=== PATIENT | female | born 1945 | race Caucasian/White ===

== ENCOUNTER → 2017-03-25 | Outpatient (CLI) | payer OTHER ==
[~2017-03-25] MED LIST: ASPI81TA28 PO; ATEN-173 PO; ATEN50TA8 PO; BUTA1CAP17 PO; CHOL200010 PO; ESTR0.3T PO; LEVO50TA6 PO; QUET1TAB30 PO; SIMV20TA2 PO; SIMV40TA4 PO
--- NOTE | 2017-03-25 11:16 | DIAGNOSTIC IMAGING REPORT ---
GI SERIES W/O KUB CLINICAL HISTORY: Abdominal pain. History of Rupal fundoplication history of perforated ulcer COMPARISON STUDY: 01/21/2016 FLUOROSCOPY TIME: 1.8 minutes. 24 fluoroscopic spot images were acquired. FINDINGS: The patient swallowed barium without difficulty. A deformity at the esophagogastric junction is consistent with history of a prior Rupal fundoplication. There is a small distal esophageal diverticulum. There is no gastric outlet obstruction. The duodenal bulb appears normal. Ligament Treitz is located in the normal anatomic position. There is poor coating of the gastric antrum. This may represent residual food debris within the stomach. This limits the sensitivity for mucosal lesion detection. IMPRESSION: 1. Small distal esophageal diverticulum 2. Postsurgical changes are prior Rupal fundoplication 3. No evidence of gastric outlet obstruction. No duodenal bulb ulcers identified. Electronically signed by: Conor Euceda M.D. 03/25/2017 11:14 AM Dictated Date/Time: 03/25/2017 11:11 AM
== END | disposition home or self-care (01) ==
LOC: C.RAD 10:38
PROVIDERS: ATTEND Surgery
DX: R10.13 Epigastric pain (principal)

== ENCOUNTER → 2017-06-17 | Outpatient (CLI) | payer OTHER ==
[~2017-06-17] MED LIST changes: -ATEN50TA8 PO; -SIMV40TA4 PO
--- NOTE | 2017-06-17 15:43 | MAMMOGRAPHY REPORT ---
BILATERAL DIGITAL SCREENING MAMMOGRAM WITH CAD: 06/17/2017 CLINICAL HISTORY: Routine screening. Patient has no complaints. TECHNIQUE: Bilateral CC and MLO views were obtained. Current study was also evaluated with a Compute r Aided Detection (CAD) system. COMPARISON: Comparison is made to exams dated: 06/11/2016 mammogram, 06/08/2015 mammogram, 06/07/2014 ma mmogram, 05/19/2012 mammogram, 05/02/2011 mammogram, and 05/01/2010 mammogram - [facility]. BREAST COMPOSITION: There are scattered areas of fibroglandular density in both breasts. FINDINGS: There is a 10 mm nodular asymmetry in the upper outer anterior left breast, for which jennifer tional spot compression tomosynthesis views and possibly ultrasound are recommended. There are benign coarse calcifications bilaterally. No other suspicious mass, architectural distortio n or cluster of suspicious microcalcifications is seen. IMPRESSION: ACR BI-RADS CATEGORY 0: INCOMPLETE EVALUATION: NEED ADDITIONAL IMAGING EVALUATION The 10 mm nodular asymmetry in the upper outer anterior left breast needs additional evaluation. The patient will be called to schedule an appointment. Approximately 10% of breast cancers are not detected with mammography. A negative mammographic report should not delay biopsy if a clinically suggestive mass is present. Mansi Puckett M.D. ay/:06/17/2017 15:09:48 Wharf Tender Helper: Yeny FERNANDEZ(R)(M), [facility] letter sent: Addl Imaging 0 BI-RADS Code: ACR BI-RADS Category 0: Incomplete Evaluation: Need Additional Imaging Evaluation
== END | disposition home or self-care (01) ==
LOC: C.MAMM 10:11
PROVIDERS: ATTEND Internal Medicine
DX: Z12.31 Encounter for screening mammogram for malignant neoplasm of breast (principal); N64.89 Other specified disorders of breast

== ENCOUNTER → 2017-07-01 | Outpatient (CLI) | payer OTHER ==
--- NOTE | 2017-07-01 13:43 | MAMMOGRAPHY REPORT ---
UNILATERAL LEFT DIGITAL DIAGNOSTIC MAMMOGRAM TOMOSYNTHESIS AND TARGETED LEFT ULTRASOUND: 07/01/2017 CLINICAL HISTORY: 71-year-old woman called back from screening mammography for a 10 mm nodular asymme try in the upper outer anterior left breast. TECHNIQUE: Spot compression left CC and MLO 2-D and tomosynthesis images were obtained. COMPARISON: Comparison is made to exams dated: 06/17/2017 mammogram, 06/11/2016 mammogram, 06/08/2015 m ammogram, 06/07/2014 mammogram, 06/01/2013 mammogram, and 05/19/2012 mammogram - [facility]. BREAST COMPOSITION: There are scattered areas of fibroglandular density in the left breast. FINDINGS: There is persistence of a lobulated circumscribed oval to reniform mass in the upper outer anterior left breast, measuring 4.2 x 8.9 x 4.6 mm and this is seen on CC tomosynthesis slice 26 and MLO tomosynthesis slice 32. No associated architectural distortion or microcalcification. Incident ally seen on the CC tomosynthesis images is an irregular 4 mm asymmetry in the slightly medial, anter ior left breast (CC slice 33/73), for which additional characterization with ultrasound was also perf ormed in the medial left breast. This is not definitely seen on the spot compression MLO view. No s uspicious microcalcifications are identified. Targeted ultrasound was performed in the left breast with particular attention to the upper outer magnolia drant and medial breast. In the 1:00 axis, 2 cm from the nipple, there is an oval parallel circumscr ibed anechoic benign simple cyst measuring 4.3 x 3.3 x 7.7 mm. This correlates well with the circums cribed mammographic mass in the upper outer anterior breast and is benign. Additional ultrasound performed in the medial left breast demonstrates a rounded hypoechoic solid juan j genny cystic mass in the 10:00 periareolar axis. This measures 4.2 x 3.2 x 4.3 mm and may possibly cor relate with the incidentally identified nodular asymmetry seen on the left CC spot compression view. This is indeterminate and definitive characterization with tissue sampling is recommended. IMPRESSION: ACR BI-RADS CATEGORY 4: SUSPICIOUS, TARGETED ULTRASOUND ACR BI-RADS CATEGORY 4: SUSPICIO US 1. The circumscribed lobulated reniform shaped 8.9 x 4.6 m mass in the upper outer anterior left charbel ast correlates with an anechoic benign simple cyst on ultrasound. No further workup is needed at thi s time. 2. Incidentally seen on the spot compression left CC view is a 4 mm nodular asymmetry in the medial anterior breast with possible sonographic correlate in the 10:00 periareolar axis. Ultrasound guided core needle biopsy is recommended and correlation with postprocedure tomosynthesis images is recomme nd to assess for mammographicsonographic correlation. These results and recommendations were discussed with the patient at the time of the exam. She tenta tively scheduled the left breast biopsy prior to leaving our department. Approximately 10% of breast cancers are not detected with mammography. A negative mammographic report should not delay biopsy if a clinically suggestive mass is present. Mansi Puckett M.D. ay/:07/01/2017 10:10:57 Hotel Maintenance Worker: Barb FERNANDEZ(R)(M), [facility] letter sent: Abnormal 4/5 BI-RADS Code: ACR BI-RADS Category 4: Suspicious Ultrasound BI-RADS: ACR BI-RADS Category 4: Suspici ous
== END | disposition home or self-care (01) ==
LOC: C.MAMM 09:27
PROVIDERS: ATTEND Internal Medicine
DX: N64.9 Disorder of breast, unspecified (principal)

== ENCOUNTER → 2017-07-08 | Outpatient (CLI) | payer OTHER ==
--- NOTE | 2017-07-08 11:34 | Discharge Instructions ---
Discharge Instructions Procedure Procedure Date: Jul 08, 2017. Reason for visit: Lt Mass. Discharge Discharge Date: Jul 08, 2017. Discharge Diagnosis: post left breast ultrasound guided core biopsy Instructions Activity Recommendations: Additional Limitations (see below) Return to School/Work: no limitations Recommended Home Diet: No Limitations Provider Instructions: ACTIVITY RECOMMENDATIONS: * No lifting, pushing, pulling or exercising the affected side for three days. RETURN TO SCHOOL/WORK: * You may return to work/school after the procedure, but do not perform any strenuous activities for 24 to 48 hours. MEDICATIONS: * Tylenol (two 325 mg) every four to six hours if needed for mild pain (if not allergic to Tylenol). DIET: * Resume previous diet. SPECIAL CARE INSTRUCTIONS: * Keep biopsy site dry for 24 hours. May shower after 24 hours, but do not soak (bathe) incision. * May remove Tegaderm (plastic patch) tomorrow AFTER showering. * Leave the steri-strips on for one week. Allow the steri-strips to fall off by themselves. If not off after one week, you may remove them. You may place a Bandaid crosswise over the strips, if desired. * Apply ice 10 minutes on and 10 minutes off as needed. * Wear a bra at bedtime to sleep more comfortably for 2-3 days. * Your referring physician should have the results after approximately 5 to 7 business days. * Call for unusual bleeding, fever, drainage, etc or if you have any questions call [phone] during normal business hours or after hours call Dr Puckett, . FOLLOW UP VISIT: Follow-up with Referring Physician as scheduled. Allergies Coded Allergies: No Known Allergies (Verified , 11/26/16) Kim Woo Recommendations: Call your doctor if: * Temperature above 101 degrees * Pain not relieved by pain medicine ordered * There is increased drainage or redness from any incision * You have any unanswered questions or concerns. Your Doctors Instructions noted above were prepared by provider Mansi Puckett. Patient Signature Section: Patient Instructions Signature Page Carmela Burt Patient (or Guardian) Signature/Date: I have read and understand the instructions given to me by my caregivers. Caregiver/RN/Doctor Signature/Date: The above-named patient and/or guardian has received patient instructions on this date. + Original Patient Signature Page (only) stays with chart. Please make copy for patient.
--- NOTE | 2017-07-08 12:24 | MAMMOGRAPHY REPORT ---
THIS REPORT HAS BEEN AMENDED. ULTRASOUND GUIDED BIOPSY LEFT BREAST: 07/08/2017 CLINICAL HISTORY: Round hypoechoic solid versus cystic mass in the 10:00 periareolar left breast. Jv carbajal presents for ultrasound-guided core biopsy. COMPARISON: Comparison is made to exams dated: 07/01/2017 ultrasound, 07/01/2017 mammogram, 06/17/2017 ma mmogram, 06/11/2016 mammogram, 06/08/2015 mammogram, and 06/07/2014 mammogram - [facility]. PATIENT CONSENT: The procedure, risks and benefits were discussed with the patient and informed conse nt was obtained both verbally and in writing. Specific risks to this procedure include: bleeding, in fection, puncture of adjacent structure, nontarget biopsy, sampling error, pain, metal allergy and me dication reaction. PROCEDURE DESCRIPTION: A time out was performed and the left breast was agreed as the site of biopsy. The skin was prepped and draped in the usual sterile fashion. The solid appearing round hypoechoic c ircumscribed 4 mm mass in the 10:00 left breast was chosen as the target for biopsy. Subcutaneous and intraparenchymal 1% buffered lidocaine, with and without epinephrine, was administered as local anes thesia. A skin incision was made. Through the incision, 2 samples were taken with a 14 gauge Achieve biopsy device. After the second core biopsy sample the mass completely resolved, suggesting complet e sampling or cystic nature. Therefore, a ribbon shaped metallic marker was placed at the biopsy sit e. Hemostasis was achieved after manual compression. The patient tolerated the procedure well and the re was no immediate complication. The samples were sent to the pathology department in an appropriat harini labeled container. Post procedure left CC and ML 2-D and tomosynthesis images were obtained. A new ribbon-shaped metall ic biopsy marker is identified in the retroareolar left breast, at the site of the biopsied round hyp oechoic mass seen on ultrasound. Evaluation of the post procedure CC view demonstrates that the biop sy marker clip is slightly lateral by approximately 17 mm from the expected location of the nodular a symmetry seen on the spot compression view from 07/01/2017. This nodular asymmetry with possible ass ociated distortion is less conspicuous and currently, no definite architectural distortion is seen in the medial anterior left breast. The benign reniform shaped cyst is again seen in the lateral anter ior left breast. Pending benign pathology results, follow-up left diagnostic mammograms including to mosynthesis images and possible repeat ultrasound is recommended to ensure stability in 6 months. IMPRESSION: ULTRASOUND GUIDED BIOPSY Status post ultrasound-guided core biopsy of an indeterminate hypoechoic solid versus cystic mass in the 10:00 periareolar left breast, with biopsy marker placed at the site. Although the biopsy marker clip does not align with the previously described asymmetry, the small asy mmetry with possible associated distortion in the medial anterior left breast seen on the prior spot compression left CC view is no longer seen, suggesting it could have represented overlapping tissue a nd is benign. Nevertheless, pending benign pathology results, follow-up left diagnostic mammograms i ncluding tomosynthesis images and possible repeat ultrasound is recommended in 6 months. The patient will receive notification of the biopsy results from her referring physician. Mansi Puckett M.D. ay/:07/08/2017 12:18:05 It Infrastructure Consultant: Cece ROMO)(Kaitlin), [facility] AMENDMENT: 07/29/2017 Mansi Puckett M.D. Pathology results from the ultrasound guided core biopsy of a small hypoechoic mass in the 10:00 left breast yielded fibrocystic change. Negative for DCIS and invasive carcinoma. The pathology results are concordant with the imaging appearance. Given that the biopsy marker clip was located slightly lateral to the asymmetry identified on the spot compression tomosynthesis views, but that asymmetry w as no longer as prominent on the postprocedure images, a short interval follow-up left diagnostic eddie mogram and possible repeat ultrasound is recommended to ensure stability in 6 months.
--- NOTE | 2017-07-08 12:24 | MAMMOGRAPHY REPORT ---
UNILATERAL LEFT DIGITAL DIAGNOSTIC MAMMOGRAM TOMOSYNTHESIS: 07/08/2017 CLINICAL HISTORY: Status post ultrasound guided core biopsy of an indeterminate hypoechoic solid vers us cystic mass in the 10:00 periareolar left breast. Please refer to the report from left breast ultrasound guided core biopsy performed at the same time for full detail. IMPRESSION: POST PROCEDURE IMAGING FOR MARKER PLACEMENT Please refer to the report from left breast ultrasound guided core biopsy performed at the same time for full detail. Approximately 10% of breast cancers are not detected with mammography. A negative mammographic report should not delay biopsy if a clinically suggestive mass is present. Mansi Puckett M.D. ay/:07/08/2017 11:33:37 Service Clerk: Cece FERNANDEZ(Maria Guadalupe)(M), [facility] BI-RADS Code: Post Procedure Imaging For Marker Placement
== END | disposition home or self-care (01) ==
LOC: C.MAMM 10:06
PROVIDERS: ATTEND Internal Medicine
DX: N63 Unspecified lump in breast (principal); N60.12 Diffuse cystic mastopathy of left breast

== ENCOUNTER 2017-11-18 13:25 | Inpatient (IN) | payer OTHER ==
[~2017-11-18] VITALS: Ht 157.5 cm; Wt 82.1 kg
[~2017-11-18 13:25] MED LIST changes: -ASPI81TA28 PO; -ATEN-173 PO; -QUET1TAB30 PO; -SIMV20TA2 PO
--- NOTE | 2017-11-18 13:50 | EMERGENCY ROOM VISIT NOTE ---
History Report prepared by Idris: Jace Savage Under the Supervision of: Dr. Shabbir Dc D.O. First contact with patient: 13:26 Stated Complaint: EVALUATION History of Present Illness The patient is a 72 year old female who presents to the Emergency Room with complaints of constant shortness of breath that began just prior to arrival. The patient states that she was having a colonoscopy today and in post-op she had an episode of vomiting. She reports that there is concern for aspiration and she notes that the last time she ate was 2 days ago. She denies chest pain, and abdominal pain. 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 The patient reports she has a history of a hernia (2014). The patient had an O2 saturation of 85% prior to arrival. The patient denies any known drug allergies or smoking history. 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 A total of 10 systems reviewed and were otherwise negative. Past Medical & Surgical Medical Problems: (1) Acid reflux (2) Cholelithiasis Family History No pertinent family history stated. Social History Smoking Status: Never Smoker Marital Status: Housing Status: lives with significant other Occupation Status: employed Current/Historical Medications Scheduled Aspirin (Aspirin Ec), 81 MG PO QAM Atenolol (Tenormin), 50 MG PO DAILY Cholecalciferol (Vitamin D), 4,000 INTUNIT PO QAM Estrogens, Conjugated (Premarin), 0.3 MG PO 2 X WEEK Omeprazole (Prilosec), 20 MG PO DAILY Quetiapine Fumarate (Seroquel), 25 MG PO HS Simvastatin (Zocor), 40 MG PO QPM Thyroid (Lolita Thyroid), 60 MG PO Q2D Scheduled PRN Albuterol Hfa (Ventolin Hfa), 2 PUFFS INH Q6H PRN for SOB/Wheezing Ujozebtvwi-Dkaxckehrjjff-Irzys (Fioricet), 1 CAP PO DAILY PRN for Migraine Allergies Coded Allergies: No Known Allergies (Verified , 11/26/16) Physical Exam Vital Signs Date Time Temp Pulse Resp B/P (MAP) Pulse Ox O2 Delivery O2 Flow Rate FiO2 11/18/17 14:59 107 18 150/59 96 Nasal Cannula 3.0 11/18/17 14:27 96 11/18/17 13:48 97 Nasal Cannula 3.0 11/18/17 13:30 88 Room Air 11/18/17 13:25 36.4 85 18 138/55 97 Nasal Cannula 3.0 11/18/17 13:25 97 Nasal Cannula 3.0 11/18/17 13:25 97 Nasal Cannula Physical Exam GENERAL: Patient is awake, alert, non anxious appearing, comfortable, and in no acute distress. Patient is resting comfortably and showing no signs of anxiety EYES: The conjunctivae are clear. The pupils are round and reactive. EARS, NOSE, MOUTH AND THROAT: The nose is without any evidence of any deformity. Mucous membranes are moist tongue is midline NECK: The neck is nontender and supple. RESPIRATORY: Diminished at right base; scattered rhonchi in left lung field. No tachypnea or conversational dyspnea noted. CARDIOVASCULAR: Regular rate and rhythm noted there no murmurs rubs or gallops normal S1 normal S2 GASTROINTESTINAL: The abdomen is soft. Bowel sounds are present in all quadrants. Abdomen is nontender MUSCULOSKELETAL/EXTREMITIES: There is no evidence of gross deformity full range of motion is noted in the hips and shoulders SKIN: There is no obvious evidence of any rash. There are no petechiae, pallor or cyanosis noted. NEUROLOGIC: Patient is awake alert and oriented x3 strength Medical Decision & Procedures ER Provider Diagnostic Interpretation: X-ray results as stated below per interpretation by me and the radiologist. CHEST ONE VIEW PORTABLE FINDINGS: Lung volumes are normal. There is no pneumothorax or pleural effusion. There is mild cardiomegaly without evidence of pulmonary edema. Left mid and left basilar airspace opacity is present. There may be mild right infrahilar opacity. Left hilar prominence is noted. IMPRESSION: 1. Left midlung and left basilar airspace opacity suggestive of pneumonia. Radiographic follow-up to ensure resolution is recommended. Left hilar prominence which can be assessed on follow-up chest radiographs. 2. Possible right infrahilar opacity. This likely reflects normal structures however additional site of pneumonia could appear similar. Electronically signed by: Tommy Puckett M.D. 11/18/2017 2:43 PM Dictated Date/Time: 11/18/2017 2:41 PM Laboratory Results 11/18/17 14:12 Red Blood Count 4.52, Mean Corpuscular Volume 93.6, Mean Corpuscular Hemoglobin 32.1, Mean Corpuscular Hemoglobin Concent 34.3, Mean Platelet Volume 10.0, Neutrophils (%) (Auto) 92.2, Lymphocytes (%) (Auto) 4.2, Monocytes (%) (Auto) 3.0, Eosinophils (%) (Auto) 0.1, Basophils (%) (Auto) 0.2, Neutrophils # (Auto) 13.09, Lymphocytes # (Auto) 0.60, Monocytes # (Auto) 0.43, Eosinophils # (Auto) 0.02, Basophils # (Auto) 0.03 11/18/17 14:12 Test 11/18/17 14:12 11/18/17 14:13 White Blood Count 14.21 K/uL (4.8-10.8) Red Blood Count 4.52 M/uL (4.2-5.4) Hemoglobin 14.5 g/dL (12.0-16.0) Hematocrit 42.3 % (37-47) Mean Corpuscular Volume 93.6 fL (80-100) Mean Corpuscular Hemoglobin 32.1 pg (25-34) Mean Corpuscular Hemoglobin Concent 34.3 g/dl (32-36) Platelet Count 216 K/uL (130-400) Mean Platelet Volume 10.0 fL (7.4-10.4) Neutrophils (%) (Auto) 92.2 % Lymphocytes (%) (Auto) 4.2 % Monocytes (%) (Auto) 3.0 % Eosinophils (%) (Auto) 0.1 % Basophils (%) (Auto) 0.2 % Neutrophils # (Auto) 13.09 K/uL (1.4-6.5) Lymphocytes # (Auto) 0.60 K/uL (1.2-3.4) Monocytes # (Auto) 0.43 K/uL (0.11-0.59) Eosinophils # (Auto) 0.02 K/uL (0-0.5) Basophils # (Auto) 0.03 K/uL (0-0.2) RDW Standard Deviation 46.6 fL (36.4-46.3) RDW Coefficient of Variation 13.6 % (11.5-14.5) Immature Granulocyte % (Auto) 0.3 % Immature Granulocyte # (Auto) 0.04 K/uL (0.00-0.02) Prothrombin Time 10.4 SECONDS (9.0-12.0) Prothromb Time International Ratio 1.0 (0.9-1.1) Activated Partial Thromboplast Time 25.2 SECONDS (21.0-31.0) Partial Thromboplastin Ratio 1.0 Anion Gap 6.0 mmol/L (3-11) Est Creatinine Clear Calc Drug Dose 63.8 ml/min Estimated GFR () 87.4 Estimated GFR (Non- 75.4 BUN/Creatinine Ratio 9.4 (10-20) Calcium Level 8.7 mg/dl (8.5-10.1) Total Bilirubin 0.4 mg/dl (0.2-1) Aspartate Amino Transf (AST/SGOT) 23 U/L (15-37) Alanine Aminotransferase (ALT/SGPT) 30 U/L (12-78) Alkaline Phosphatase 86 U/L (45-117) Troponin I 0.022 ng/ml (0-0.045) Total Protein 7.3 gm/dl (6.4-8.2) Albumin 3.8 gm/dl (3.4-5.0) Globulin 3.5 gm/dl (2.5-4.0) Albumin/Globulin Ratio 1.1 (0.9-2) Urine Color YELLOW Urine Appearance CLEAR (CLEAR) Urine pH 5.0 (4.5-7.5) Urine Specific [place] 1.021 (1.000-1.030) Urine Protein NEG (NEG) Urine Glucose (UA) NEG (NEG) Urine Ketones NEG (NEG) Urine Occult Blood NEG (NEG) Urine Nitrite NEG (NEG) Urine Bilirubin NEG (NEG) Urine Urobilinogen NEG (NEG) Urine Leukocyte Esterase SMALL (NEG) Urine WBC (Auto) 1-5 /hpf (0-5) Urine RBC (Auto) 0-4 /hpf (0-4) Urine Hyaline Casts (Auto) 0 /lpf (0-5) Urine Epithelial Cells (Auto) 5-10 /lpf (0-5) Urine Bacteria (Auto) NEG (NEG) Laboratory results per my review. Medications Administered Medications (Trade) Dose Ordered Sig/Priyanka Route Start Time Stop Time Status Last Admin Dose Admin Albuterol/ Ipratropium (Duoneb) 3 ml NOW STAT INH 11/18/17 13:58 11/18/17 13:59 DC 11/18/17 14:23 3 ML ECG Indication: SOB/dyspnea Rate (beats per minute): 90 Rhythm: normal sinus Findings: no ectopy, other (no acute ST segment abnormality) Comparison ECG Date: 09/12/1999 Change: no significant change ED Course 1329: The patient was evaluated in room B11. A complete history and physical examination were performed. 1358: Duoneb 3ml INH. 1450: I discussed the patient's case with Dr. Steiner. The patient will be evaluated for further management. 1513: Upon reevaluation, the patient is doing well. I discussed results and treatment plan with the patient. She verbalizes agreement and understanding. I spoke with Dr. Steiner. The patient will be evaluated for further management and care. Medical Decision Differential diagnosis: Etiologies such as infections, reactive airway disease, pneumonia, pneumothorax , COPD, CHF, cardiac ischemia, pulmonary embolism, musculoskeletal, gastrointestinal, as well as others were entertained. Nursing notes reviewed. The patient is a 72-year-old female who presented to the emergency department from the outpatient surgery center. The patient had a colonoscopy and afterwards became sick and had an episode of emesis. She had the possibility of aspiration. Initially she was found have hypoxia but her oxygen level improved with DuoNeb therapy and supplemental ox and. She continued to have hypoxia and was sent to the emergency department for an evaluation. Reportedly the patient had a chest x-ray prior to arrival which was normal. The patient started having worsening breath sounds and changes on chest x-ray which could be consistent with aspiration and pneumonitis. I discussed the patient's laboratory and radiographic studies with her. She was treated with DuoNeb therapy in emergency department. I also discussed her case with the on-call [facility] hospitalist group. They have agreed to evaluate the patient in the emergency department for further management and disposition. Medication Reconcilliation Current Medication List: was personally reviewed by me Blood Pressure Screening Patient's blood pressure: Elevated blood pressure Blood pressure disposition: Elevated BP felt to be situational Consults Time Called: [id number] Consulting Physician: Dr. Papito Allen Returned Call: [phone] I discussed the patient's case with Dr. Steiner. The patient will be evaluated for further management. Impression Primary Impression: Aspiration pneumonia Additional Impression: Hypoxia Scribe Attestation The scribe's documentation has been prepared under my direction and personally reviewed by me in its entirety. I confirm that the note above accurately reflects all work, treatment, procedures, and medical decision making performed by me. Departure Information Dispostion Being Evaluated By Hospitalist Prescriptions Thyroid (ARMOUR THYROID) 30 Mg Tab 60 MG PO Q2D for 30 Days, TAB 5 Refills Prov: Dominic Bowden MD 11/18/17 Omeprazole (PRILOSEC) 20 Mg Capcr 20 MG PO DAILY, #30 CAP Prov: Dominic Bowden MD 11/18/17 Albuterol Hfa (VENTOLIN HFA) 200 Puffs/35641 Mcg Aers 2 PUFFS INH Q6H Y for SOB/Wheezing, #1 INHALER Prov: Dominic Bowden MD 11/18/17 Referrals Alonso Barth D.OGissell (PCP) Problem Qualifiers Primary Impression: Aspiration pneumonia Aspiration pneumonia type: unspecified Laterality: bilateral Lung location : unspecified part of lung Qualified Codes: J69.0 - Pneumonitis due to inhalation of food and vomit
[2017-11-18] MEDS ORDERED: ALBUT/IPRATROP 3MG/0.5MG NEB 3 ML VIAL INH STA (13:58)
[2017-11-18 14:25] LABS: BASO % 0.2 %; BASO ABS # 0.03 K/uL (0-0.2); EOS % 0.1 %; EOS ABS # 0.02 K/uL (0-0.5); HEMATOCRIT 42.3 % (37-47); HEMOGLOBIN 14.5 g/dL (12.0-16.0); IG# 0.04 K/uL (0.00-0.02); LYMPH % 4.2 %; MEAN CELL VOLUME 93.6 fL (80-100); MEAN CORPUSCULAR HEMOGLOBIN 32.1 pg (25-34); MEAN CORPUSCULAR HGB CONC 34.3 g/dl (32-36); MONO ABS # 0.43 K/uL (0.11-0.59); NEUT % 92.2 %; NEUT ABS # 13.09 K/uL (1.4-6.5); PLATELET COUNT 216 K/uL (130-400); RED CELL DISTRIBUTION WIDTH CV 13.6 % (11.5-14.5); RED CELL DISTRIBUTION WIDTH SD 46.6 fL (36.4-46.3); WHITE BLOOD COUNT 14.21 K/uL (4.8-10.8)
[2017-11-18 14:37] LABS: PTT PATIENT 25.2 SECONDS (21.0-31.0)
[2017-11-18 14:42] LABS: ALBUMIN 3.8 gm/dl (3.4-5.0); CALCIUM 8.7 mg/dl (8.5-10.1); CREATININE 0.78 mg/dl (0.60-1.20); POTASSIUM 3.6 mmol/L (3.5-5.1)
--- NOTE | 2017-11-18 14:45 | DIAGNOSTIC IMAGING REPORT ---
CHEST ONE VIEW PORTABLE CLINICAL HISTORY: Dyspnea. Respiratory distress. COMPARISON STUDY: No previous studies for comparison. FINDINGS: Lung volumes are normal. There is no pneumothorax or pleural effusion. There is mild cardiomegaly without evidence of pulmonary edema. Left mid and left basilar airspace opacity is present. There may be mild right infrahilar opacity. Left hilar prominence is noted. IMPRESSION: 1. Left midlung and left basilar airspace opacity suggestive of pneumonia. Radiographic follow-up to ensure resolution is recommended. Left hilar prominence which can be assessed on follow-up chest radiographs. 2. Possible right infrahilar opacity. This likely reflects normal structures however additional site of pneumonia could appear similar. Electronically signed by: Tommy Puckett M.D. 11/18/2017 2:43 PM Dictated Date/Time: 11/18/2017 2:41 PM
[2017-11-18 14:47] LABS: TOTAL PROTEIN 7.3 gm/dl (6.4-8.2)
[2017-11-18] MEDS ORDERED: THY/30 PO ×2 (15:27→15:35)
[2017-11-18] MEDS ORDERED: PRLSR20 PO (15:27)
[2017-11-18] MEDS ORDERED: VNTHFA/IN INH (15:27)
[2017-11-18] MEDS ORDERED: ACETAMINOPHEN 325 MG TAB PO PRN (15:30)
[2017-11-18] MEDS ORDERED: ALBUTEROL HFA 8 GM INHALER INH PRN (15:30)
[2017-11-18] MEDS ORDERED: ONDANSETRON INJ 2 MG/ML 2 ML VIAL IV PRN (15:30)
[2017-11-18] MEDS ORDERED: ALUMINUM/MAGNESIUM/SIMETH (MAALOX MAX) 30 ML UDC PO PRN (15:30)
[2017-11-18] MEDS ORDERED: BUTALBITAL/ACETAMIN/CAFFEINE TAB PO PRN (15:30)
[2017-11-18] MEDS ORDERED: LEVALBUTEROL 0.63MG/3 ML NEB INH PRN (15:30)
[2017-11-18] MEDS ORDERED: ACETAMINOPHEN 500 MG TAB PO STA (15:38)
[2017-11-18 16:03] VITALS: BP 143/83; PULSE 94; TEMP 36; O2SAT 100; Ht 157.5 cm; Wt 82.1 kg
--- NOTE | 2017-11-18 16:13 | HISTORY & PHYSICAL EXAMINATION ---
DATE OF ADMISSION: 11/18/2017 CHIEF COMPLAINT: Hypoxia and aspiration. 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 After the procedure was done, she had emesis and vomited and she aspirated and she was hypoxic and brought into the ER. In the ER, her oxygen was 85% on arrival. Currently, saturating fine with the nasal cannula , feeling better now. Denies any chest pain or shortness of breath. No cough. Earlier was feeling chills but no chills now. Has chronic headaches. No blurred vision. No abdominal pain. Normal bowel and bladder movements. No rash, no swelling in the lower extremity. The patient is currently feeling hungry and wants to eat. Currently, hemodynamically stable. ALLERGIES: No known drug allergies. PAST MEDICAL HISTORY: As mentioned above. PAST SURGICAL HISTORY: EGD with transendoscopic dilatation for oesophagus webs, paraesophageal hernia repair, status post fundoplication, total abdominal hysterectomy with removal of tubes for cervical cancer. MEDICATIONS: The patient is on albuterol 2 puffs every 6 hours p.r.n., omeprazole 20 mg p.o. daily, atenolol 50 mg p.o. daily, Witherbee thyroid 60 mg every other day, Fioricet 1 capsule p.o. daily p.r.n., simvastatin 40 mg p.o. daily, Premarin 0.3 mg 1 tablet 2 times a week, Seroquel 25 mg p.o. at bedtime, vitamin D 4000 units p.o. daily, and aspirin 81 mg p.o. daily. FAMILY HISTORY: Significant for father had leukemia; mother had bladder and ovarian cancer, hypertension and thyroid disorder; brother had stroke. SOCIAL HISTORY: . No smoking history. No alcohol use. No drug use. REVIEW OF SYMPTOMS: As per HPI. Rest of review of symptoms negative. PHYSICAL EXAMINATION: GENERAL: The patient is of moderate build, not in distress. VITAL SIGNS: Temperature 36.4, pulse 96, respiratory rate 18, blood pressure 150/59, oxygen 96% on 3 liters. HEENT: No pallor, no icterus. Pupils equal, round, and reactive to light. NECK: No JVD, no neck masses, no carotid bruits. CARDIOVASCULAR: S1, S2 heard, regular rate and rhythm, no murmur, no gallop. RESPIRATORY SYSTEM: Normal AP diameter, no accessory muscle use. Mild wheezing and crackles on auscultation on anterior part of the chest. ABDOMEN: Soft, bowel sounds present. Nontender. No distention. CENTRAL NERVOUS SYSTEM: Cranial nerves II-XII grossly intact. Nonfocal. EXTREMITIES: No edema, no erythema. LABORATORIES: Sodium 139, potassium 3.6, chloride 106, bicarbonate 27, BUN 7, creatinine 0.7, serum glucose 137, calcium 8.7. Total bilirubin 0.4, AST 23, ALT 30, alkaline phosphatase 86. Troponin I 0.02. WBC 14.2, hemoglobin 14.5, hematocrit 42.3, platelets 216. PT 10.4, INR 1.0 APTT 25.2. Urinalysis - small leukocyte esterase. IMAGING DATA: Chest x-ray shows left mid lung and left basilar opacities suggestive of pneumonia. Possible right infrahilar opacity. EKG shows normal sinus rhythm with rate of 90, no acute ST changes seen. ASSESSMENT AND PLAN: This is a 72-year-old female who presents with aspiration pneumonitis. 1. Aspiration pneumonitis, hypoxia ,secondary to emesis post-colonoscopy, history of paraesophageal hernia repair, and history of dilatation of the oesophageal rings.Has some mild wheezing and crackles on anterior side of chest. Saturating 85% on room air on arrival to the Emergency Room Currently saturating fine on [address] her empirically on IV Unasyn, IV steroids and monitor on the medical floor. 2. History of chronic migraines. Continue her home Seroquel and Fioricet p.r.n. 3. History of gastroesophageal reflux disease. Continue Prilosec. 4. History of hypertension. Continue atenolol. Will monitor her blood pressure while in the hospital. 5. History of hypothyroidism. Continue armor thyroid her home medications. 6. Deep venous thrombosis prophylaxis, sequential compression devices for now. 7. Disposition: Admit to medical floor. Expect to discharge home and follow with her family doctor. Level 1 full code. MTDD
--- NOTE | 2017-11-18 16:43 | NUR ---
Patient arrived via litter from ER to room 420 at approximately 1615; A&O; pleasant; no c/o pain; O2 sats at 100% on 3L; titrated to 2L NC; ambulates with supervision to bathroom; at bedside; all admission nursing documentation completed; call lutz within reach and pt instructed to ring for assistance.
[2017-11-18] MEDS: METHYLPREDNISOLONE IV 40 MG in SYRINGE 0 ML IV SCH (18:08)
[2017-11-18] MEDS: AMPICILLIN/SULBACTAM SOD INJ 1,500 MG in SODIUM CHLORIDE 0.9% 100ML 100 ML IV SCH ×2 (18:09→23:50)
[2017-11-18] MEDS ORDERED: METOPROLOL TARTRATE 25 MG TAB PO ONE (19:15)
[2017-11-18] MEDS ORDERED: QUETIAPINE FUMARATE 25 MG TAB PO SCH (21:00)
[2017-11-18] MEDS ORDERED: SIMVASTATIN 40 MG TAB PO SCH (21:00)
[2017-11-18 23:32] VITALS: BP 122/73; PULSE 74; TEMP 37.1; O2SAT 94
--- NOTE | 2017-11-19 | NUR ---
A/ID: pt alert and oriented X4, resting in bed at this time. VSS on 2L via NC. denies chest pain and SOB. lung sounds diminished in the bases. pt OOB with supervision assist to bathroom. pt receiving intermittent abx for potential aspiration pneumonia. pt plans to return home upon discharge. will continue to monitor.
[2017-11-19] MEDS: AMPICILLIN/SULBACTAM SOD INJ 1,500 MG in SODIUM CHLORIDE 0.9% 100ML 100 ML IV SCH ×2 (05:47→11:53)
[2017-11-19] MEDS: METHYLPREDNISOLONE IV 40 MG in SYRINGE 0 ML IV SCH (05:47)
[2017-11-19 06:23] LABS: BASO % 0.1 %; BASO ABS # 0.02 K/uL (0-0.2); HEMATOCRIT 39.1 % (37-47); HEMOGLOBIN 13.2 g/dL (12.0-16.0); IG# 0.07 K/uL (0.00-0.02); LYMPH % 6.5 %; LYMPH ABS # 1.36 K/uL (1.2-3.4); MEAN CELL VOLUME 94.4 fL (80-100); MEAN CORPUSCULAR HEMOGLOBIN 31.9 pg (25-34); MEAN CORPUSCULAR HGB CONC 33.8 g/dl (32-36); MEAN PLATELET VOLUME 10.3 fL (7.4-10.4); MONO % 3.5 %; MONO ABS # 0.73 K/uL (0.11-0.59); NEUT % 89.6 %; NEUT ABS # 18.71 K/uL (1.4-6.5); PLATELET COUNT 240 K/uL (130-400); RED CELL DISTRIBUTION WIDTH CV 13.9 % (11.5-14.5); RED CELL DISTRIBUTION WIDTH SD 47.7 fL (36.4-46.3); WHITE BLOOD COUNT 20.89 K/uL (4.8-10.8)
[2017-11-19 07:08] LABS: CALCIUM 8.5 mg/dl (8.5-10.1); CREATININE 0.71 mg/dl (0.60-1.20); POTASSIUM 3.5 mmol/L (3.5-5.1)
[2017-11-19 07:09] VITALS: BP 108/65; PULSE 64; TEMP 36.7; O2SAT 96
--- NOTE | 2017-11-19 07:17 | DIAGNOSTIC IMAGING REPORT ---
CHEST ONE VIEW PORTABLE HISTORY: 72 years-old Female ASPIRATION follow-up study in a patient with aspiration pneumonitis and respiratory distress COMPARISON: Chest radiograph 11/18/2017 TECHNIQUE: Portable AP view of the chest FINDINGS: Cardiac silhouette is upper limits of normal, unchanged. No pneumothorax. The right lung is generally clear with previously described right infrahilar opacity not definitively seen. Persistent left midlung and left basilar alveolar opacities are noted which appear unchanged from comparison. No large pleural effusion. Bones of the chest appear grossly intact. Prior cholecystectomy. IMPRESSION: Unchanged appearance of the left midlung and left basilar alveolar opacities suggesting pneumonia or aspiration pneumonitis. The above report was generated using voice recognition software. It may contain grammatical, syntax or spelling errors. Electronically signed by: Shakir Fernandez M.D. 11/19/2017 7:15 AM Dictated Date/Time: 11/19/2017 7:14 AM
[2017-11-19] MEDS ORDERED: ASPIRIN 81 MG ECTAB PO SCH (08:00)
[2017-11-19] MEDS ORDERED: ARMOUR THYROID 30 MG TAB PO SCH ×2 (08:00→09:00)
[2017-11-19] MEDS ORDERED: CHOLECALCIFEROL 1000 INTER.UNIT TAB PO SCH (08:00)
[2017-11-19] MEDS ORDERED: PANTOprazole SOD 40 MG TAB PO SCH (08:00)
[2017-11-19 09:00] VITALS: O2SAT 96
[2017-11-19 09:07] VITALS: O2SAT 95
[2017-11-19 10:00] VITALS: O2SAT 94
[2017-11-19] MEDS ORDERED: AMOX875T PO (11:12)
[2017-11-19] MEDS ORDERED: LCTX PO (11:12)
--- NOTE | 2017-11-19 11:13 | Discharge Instructions ---
Discharge Instructions Date of Service Nov 19, 2017. Admission Reason for Admission: Aspiration Pneumonia, Hypoxia Discharge Discharge Diagnosis / Problem: aspiration pneumionia, hypoxia Discharge Goals Goal(s): Decrease discomfort, Improve function Activity Recommendations Activity Limitations: resume your previous activity . Instructions / Follow-Up Instructions / Follow-Up FOLLOWUP WITH FAMILY DOCTOR ON Oct AT 8:45AM. Current Hospital Diet Patient's current hospital diet: Low Fiber Diet Discharge Diet Recommended Diet: AHA Diet (Heart Healthy) Pending Studies Studies pending at discharge: no Medical Emergencies . Who to Call and When: Medical Emergencies: If at any time you feel your situation is an emergency, please call 911 immediately. . Non-Emergent Contact Non-Emergency issues call your: Primary Care Provider . . "Provider Documentation" section prepared by Dominic Bowden. . VTE Core Measure Inpt VTE Proph given/why not?: SCD's
[2017-11-19 11:27] VITALS: BP 108/65; PULSE 64; TEMP 36.7; O2SAT 94
[2017-11-19 11:43] VITALS: BP 132/69; PULSE 66; O2SAT 92
--- NOTE | 2017-11-19 17:09 | Progress Note ---
Internal Med Progress Note Date of Service: Nov 19, 2017. Provider Documentation: SUBJECTIVE: resting comfortably afebrile saturating fine with out oxygen denies cough denies sob no chest pain wants to go home OBJECTIVE: Vital Signs-as noted below Exam: General-alert and oriented. not in distress ENT-Normal hearing Neck-no neck masses Lungs-Cta b/l no wheezing or crackles Heart-S1 and S2 heard regular No murmurs Abdomen-Soft Bowel sounds present Non tender No distension Extremities-No edema No erythema Neuro-alert and awake moves extremities Lab data as noted below. ASSESSMENT & PLAN: This is a 72-year-old female who presents with aspiration pneumonitis. 1. Aspiration pneumonitis, hypoxia ,secondary to emesis post-colonoscopy, history of paraesophageal hernia repair, and history of dilatation of the oesophageal rings.Has some mild wheezing and crackles on anterior side of chest on presentation. Saturating 85% on room air on arrival to the Emergency Room placed empirically on IV Unasyn, IV steroids and monitor on the medical floor. 11/19/17: doing fine. sats fine on room air discharged on po Augmentin. f/u with pcp. 2. History of chronic migraines. Continue her home Seroquel and Fioricet p.r.n. 3. History of gastroesophageal reflux disease. Continue Prilosec. 4. History of hypertension. Continue atenolol. Will monitor her blood pressure while in the hospital.Stable 5. History of hypothyroidism. Continue armor thyroid her home medications. discharged home Vital Signs: Date Time Temp Pulse Resp B/P (MAP) Pulse Ox O2 Delivery O2 Flow Rate FiO2 11/19/17 11:43 66 92 11/19/17 11:27 36.7 64 20 94 Room Air 11/19/17 10:00 94 Room Air 11/19/17 09:07 95 Nasal Cannula 1.0 11/19/17 09:00 96 Nasal Cannula 2.0 11/19/17 07:09 36.7 64 20 108/65 (79) 96 Nasal Cannula 2.0 11/19/17 00:00 Nasal Cannula 2.0 11/18/17 23:32 37.1 74 18 122/73 (89) 94 Nasal Cannula 2.0 11/18/17 20:00 Nasal Cannula 2.0 Lab Results: Results Past 24 Hours Test 12/21/17 06:00 Range/Units White Blood Count 20.89 4.8-10.8 K/uL Red Blood Count 4.14 4.2-5.4 M/uL Hemoglobin 13.2 12.0-16.0 g/dL Hematocrit 39.1 37-47 % Mean Corpuscular Volume 94.4 80-100 fL Mean Corpuscular Hemoglobin 31.9 25-34 pg Mean Corpuscular Hemoglobin Concent 33.8 32-36 g/dl Platelet Count 240 130-400 K/uL Mean Platelet Volume 10.3 7.4-10.4 fL Neutrophils (%) (Auto) 89.6 % Lymphocytes (%) (Auto) 6.5 % Monocytes (%) (Auto) 3.5 % Eosinophils (%) (Auto) 0.0 % Basophils (%) (Auto) 0.1 % Neutrophils # (Auto) 18.71 1.4-6.5 K/uL Lymphocytes # (Auto) 1.36 1.2-3.4 K/uL Monocytes # (Auto) 0.73 0.11-0.59 K/uL Eosinophils # (Auto) 0.00 0-0.5 K/uL Basophils # (Auto) 0.02 0-0.2 K/uL RDW Standard Deviation 47.7 36.4-46.3 fL RDW Coefficient of Variation 13.9 11.5-14.5 % Immature Granulocyte % (Auto) 0.3 % Immature Granulocyte # (Auto) 0.07 0.00-0.02 K/uL Sodium Level 138 136-145 mmol/L Potassium Level 3.5 3.5-5.1 mmol/L Chloride Level 106 98-107 mmol/L Carbon Dioxide Level 28 21-32 mmol/L Anion Gap 4.0 3-11 mmol/L Blood Urea Nitrogen 10 7-18 mg/dl Creatinine 0.71 0.60-1.20 mg/dl Est Creatinine Clear Calc Drug Dose 70.1 ml/min Estimated GFR () 97.9 Estimated GFR (Non- 84.5 BUN/Creatinine Ratio 14.1 10-20 Random Glucose 110 70-99 mg/dl Calcium Level 8.5 8.5-10.1 mg/dl Magnesium Level 2.0 1.8-2.4 mg/dl
--- NOTE | 2017-11-19 17:16 | Discharge Summary ---
Discharge Summary Date of Service Nov 19, 2017. 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 Left midlung and left basilar airspace opacity suggestive of pneumonia. Radiographic follow-up to ensure resolution is recommended. Left hilar prominence which can be assessed on follow-up chest radiographs. 2. Possible right infrahilar opacity. This likely reflects normal structures however additional site of pneumonia could appear similar. Medication Reconciliation New Medications: Amoxicillin & Pot Clavulanate (Augmentin 875-125 mg) 1 Tab Tab 1 TAB PO BID, #12 TAB Lactobacillus Acidophilus (Lactinex) Tab 2 TAB PO BID for 10 Days, TAB Continued Medications: Albuterol Hfa (Ventolin Hfa) 200 Puffs/76734 Mcg Aers 2 PUFFS INH Q6H PRN for SOB/Wheezing, #1 INHALER Aspirin (Aspirin Ec) 81 Mg Tab 81 MG PO QAM Atenolol (Tenormin) 50 Mg Tab 50 MG PO DAILY, TAB Hnmslhhaph-Kmiweqeojibzf-Yyfcy (Fioricet) 1 Cap Cap 1 CAP PO DAILY PRN for Migraine Cholecalciferol (Vitamin D) 2,000 Unit Cap 4000 INTUNIT PO QAM Estrogens, Conjugated (Premarin) 0.3 Mg Tab 0.3 MG PO 2 X WEEK, TAB Omeprazole (Prilosec) 20 Mg Capcr 20 MG PO DAILY, #30 CAP Quetiapine Fumarate (Seroquel) 25 Mg Tab 25 MG PO HS, TAB Simvastatin (Zocor) 40 Mg Tab 40 MG PO QPM, TAB Thyroid ([place] Thyroid) 30 Mg Tab 60 MG PO Q2D for 30 Days, TAB 5 Refills Admission Information HPI (per Admitting provider): : This is a 72-year-old female with past medical history significant for chronic migraine, hypothyroidism, depression, GERD, hypertension, hyperlipidemia, insomnia, 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 After the procedure was done, she had emesis and vomited and she aspirated and she was hypoxic and brought into the ER. In the ER, her oxygen was 85% on arrival. Currently, saturating fine with the nasal cannula , feeling better now. Denies any chest pain or shortness of breath. No cough. Earlier was feeling chills but no chills now. Has chronic headaches. No blurred vision. No abdominal pain. Normal bowel and bladder movements. No rash, no swelling in the lower extremity. The patient is currently feeling hungry and wants to eat. Currently, hemodynamically stable Physical Exam (per Admitting): GENERAL: The patient is of moderate build, not in distress. VITAL SIGNS: Temperature 36.4, pulse 96, respiratory rate 18, blood pressure 150/59, oxygen 96% on 3 liters. HEENT: No pallor, no icterus. Pupils equal, round, and reactive to light. NECK: No JVD, no neck masses, no carotid bruits. CARDIOVASCULAR: S1, S2 heard, regular rate and rhythm, no murmur, no gallop. RESPIRATORY SYSTEM: Normal AP diameter, no accessory muscle use. Mild wheezing and crackles on auscultation on anterior part of the chest. ABDOMEN: Soft, bowel sounds present. Nontender. No distention. CENTRAL NERVOUS SYSTEM: Cranial nerves II-XII grossly intact. Nonfocal. EXTREMITIES: No edema, no erythema Hospital Course This is a 72-year-old female who presents with aspiration pneumonitis. 1. Aspiration pneumonitis, hypoxia ,secondary to emesis post-colonoscopy, history of paraesophageal hernia repair, and history of dilatation of the oesophageal rings.Has some mild wheezing and crackles on anterior side of chest on presentation. Saturating 85% on room air on arrival to the Emergency Room placed empirically on IV Unasyn, IV steroids and monitor on the medical floor. 11/19/17: doing fine. sats fine on room air discharged on po Augmentin. f/u with pcp. 2. History of chronic migraines. Continue her home Seroquel and Fioricet p.r.n. 3. History of gastroesophageal reflux disease. Continue Prilosec. 4. History of hypertension. Continue atenolol. Will monitor her blood pressure while in the hospital.Stable 5. History of hypothyroidism. Continue armor thyroid her home medications. discharged home Total time spent on discharge = 35MINUTES This includes examination of the patient, discharge planning, medication reconciliation, and communication with other providers. Discharge Instructions Discharge Instructions Date of Service Nov 19, 2017. Admission Reason for Admission: Aspiration Pneumonia, Hypoxia Discharge Discharge Diagnosis / Problem: aspiration pneumionia, hypoxia Discharge Goals Goal(s): Decrease discomfort, Improve function Activity Recommendations Activity Limitations: resume your previous activity . Instructions / Follow-Up Instructions / Follow-Up FOLLOWUP WITH FAMILY DOCTOR ON Oct AT 8:45AM. Current Hospital Diet Patient's current hospital diet: Low Fiber Diet Discharge Diet Recommended Diet: AHA Diet (Heart Healthy) Pending Studies Studies pending at discharge: no Medical Emergencies . Who to Call and When: Medical Emergencies: If at any time you feel your situation is an emergency, please call 911 immediately. . Non-Emergent Contact Non-Emergency issues call your: Primary Care Provider . . "Provider Documentation" section prepared by Dominic Bowden. . VTE Core Measure Inpt VTE Proph given/why not?: SCD's
--- NOTE | 2017-11-20 11:08 | EDITING REQUIRED CODING QUERY ---
CODING QUERY To promote full compliance with coding requirements relating to patient care, provider participation is requested in all cases of voice professor uncertainty. Please assist us with the question(s) below: Coding Question(s): There is documentation of Aspiration Pneumonia secondary to emesis post-colonoscopy. Please clarify below, in your clinical opinion. (x ) Aspiration Pneumonia was a postoperative complication ( ) Aspiration Pneumonia was not a postoperative complication Physician's Response(s): Thank you Kady Huber Principal Diagnosis: "_that condition established after study, to be chiefly responsible for occasioning the admission of the patient to the hospital for care." Co-Existing Principal Diagnosis: "_when two or more diagnoses equally meet the criteria for principal diagnosis as determined by the circumstances of admission, diagnostic work up, and/or therapy provided, and the Alphabetic Index, Tabular List, or another coding guideline does not provide sequencing direction, any one of the diagnoses may be sequenced first." "When the physician has documented what appears to be a current diagnosis in the body of the record, but has not included the diagnosis in the final diagnostic statement, the physician should be asked whether the diagnosis should be added." (Source Coding Clinic 2 QTR90. p3-4)
[2018-04-02] MEDS ORDERED: QUET1TAB30 PO (13:16)
[2018-04-02] MEDS ORDERED: ASPI81TA28 PO (13:16)
[2018-04-02] MEDS ORDERED: ATEN50TA8 PO (14:01)
[2018-04-02] MEDS ORDERED: SIMV40TA4 PO (14:01)
[2018-05-10] MEDS ORDERED: SYN50 PO (14:43)
[2018-05-10] MEDS ORDERED: BUTA-240 PO (14:43)
[2018-05-10] MEDS ORDERED: CHOL2000 PO (14:43)
[2018-05-10] MEDS ORDERED: ATOR-24 PO (14:44)
[2018-05-10] MEDS ORDERED: PRLSR20 PO (14:44)
[2018-05-10] MEDS ORDERED: APIX1TAB3 PO (14:45)
[2018-05-10] MEDS ORDERED: CEPH500C2 PO (17:14)
== END 2017-11-19 12:32 | disposition home or self-care (01) | DRG 205 ==
LOC: EDBD 13:25 → C.EDB 13:26 → C.4E 15:25 → ENRESERV 15:39
PROVIDERS: ADMIT Internal Medicine; ATTEND Internal Medicine
DX: J95.89 Other postprocedural complications and disorders of respiratory system, not elsewhere classified (principal); J69.0 Pneumonitis due to inhalation of food and vomit; R09.02 Hypoxemia; K21.9 Gastro-esophageal reflux disease without esophagitis; E03.9 Hypothyroidism, unspecified; E06.3 Autoimmune thyroiditis; I10 Essential (primary) hypertension; E78.5 Hyperlipidemia, unspecified; F32.9 Major depressive disorder, single episode, unspecified; G43.909 Migraine, unspecified, not intractable, without status migrainosus; Z79.899 Other long term (current) drug therapy; Z79.82 Long term (current) use of aspirin; Z85.41 Personal history of malignant neoplasm of cervix uteri; Z82.49 Family history of ischemic heart disease and other diseases of the circulatory system; Z83.49 Family history of other endocrine, nutritional and metabolic diseases; Z82.3 Family history of stroke; Z80.6 Family history of leukemia; Z80.41 Family history of malignant neoplasm of ovary; Z80.8 Family history of malignant neoplasm of other organs or systems; Y83.8 Other surgical procedures as the cause of abnormal reaction of the patient, or of later complication, without mention of misadventure at the time of the procedure

== ENCOUNTER → 2018-01-15 | Outpatient (CLI) | payer OTHER ==
[~2018-01-15] MED LIST changes: +ASPI81TA28 PO; +ATEN50TA8 PO; -LEVO50TA6 PO; +PRLSR20 PO; +QUET1TAB30 PO; +SIMV40TA4 PO; +THY/30 PO; +VNTHFA/IN INH
--- NOTE | 2018-01-15 14:59 | MAMMOGRAPHY REPORT ---
UNILATERAL LEFT DIGITAL DIAGNOSTIC MAMMOGRAM TOMOSYNTHESIS WITH CAD: 01/15/2018 CLINICAL HISTORY: History of recent ultrasound guided biopsy of the left 10 o'clock breast mass which yielded benign fibrocystic change. The patient presents for short interval follow-up of a left v[address]ay st asymmetry located slightly medial to the biopsy site. TECHNIQUE: Breast tomosynthesis in addition to standard 2D mammography was performed. Current study was also evaluated with a Computer Aided Detection (CAD) system. Left CC and MLO 2-D and tomosynthes is images were obtained. COMPARISON: Comparison is made to exams dated: 07/01/2017 ultrasound, 07/01/2017 mammogram, 06/17/2017 ma mmogram, 06/11/2016 mammogram, 06/08/2015 mammogram, and 06/07/2014 mammogram - [facility]. BREAST COMPOSITION: There are scattered areas of fibroglandular density in the left breast. FINDINGS: A biopsy marker clip is seen in the left superior breast at approximately 12:00 status at the site of recent benign ultrasound-guided biopsy. The previously described asymmetry seen in the l eft medial breast on the cc view is less prominent has the appearance of normal fibroglandular tissue on the current exam. The remainder of the left breast is stable compared to prior exams, without eden spicious masses, calcifications, or areas of architectural distortion noted. Circumscribed benign-ap pearing 8 mm mass within the left upper outer quadrant was shown to represent a benign cyst on the pr ior ultrasound exam. Benign-appearing scattered left breast calcifications are stable compared to mu ltiple prior exams, including a small cluster of calcifications within the left medial posterior v[address] which is stable compared to multiple prior exams. IMPRESSION: ACR BI-RADS CATEGORY 2: BENIGN There is no mammographic evidence of malignancy in the left breast. Return to annual mammogram screen ing schedule is recommended, due May 2018. The patient has been verbally notified of the results. Approximately 10% of breast cancers are not detected with mammography. A negative mammographic report should not delay biopsy if a clinically suggestive mass is present. Jenn Dick M.D. ah/:01/15/2018 10:17:56 Systems Software Designer: Melissa FERNANDEZ(Maria Guadalupe)(M), [facility] letter sent: Normal 1/2 BI-RADS Code: ACR BI-RADS Category 2: Benign
== END | disposition home or self-care (01) ==
LOC: C.MAMM 09:46
PROVIDERS: ATTEND Internal Medicine
DX: N63.20 Unspecified lump in the left breast, unspecified quadrant (principal)

== ENCOUNTER 2018-04-02 20:46 | Inpatient (IN) | payer OTHER ==
[~2018-04-02] VITALS: Ht 157.5 cm; Wt 77.7 kg
--- NOTE | 2018-04-02 21:01 | DIAGNOSTIC IMAGING REPORT ---
HEAD WITHOUT CONTRAST (CT) CLINICAL HISTORY: 72 years-old Female with STROKE. Acute migraine with strokelike symptoms TECHNIQUE: Multiple axial CT images of the head were obtained without contrast. A dose lowering technique was utilized adhering to the principles of ALARA. CT DOSE: 537.48 mGy.cm COMPARISON: None. FINDINGS: No acute intracranial hemorrhage, midline shift, intracranial mass, hydrocephalus, territorial ischemia or abnormal extra-axial collection. Mild brain atrophy. Senescent calcifications of the right lentiform nucleus. Minimal low-attenuation within the periventricular white matter of the cerebral hemispheres bilaterally suggests chronic microvascular ischemic changes. The calvarium is intact. The paranasal sinuses, mastoid air cells, and middle ear cavities are clear. IMPRESSION: No acute intracranial abnormality. The above report was generated using voice recognition software. It may contain grammatical, syntax or spelling errors. Electronically signed by: Shakir Fernandez M.D. 04/02/2018 9:00 PM Dictated Date/Time: 04/02/2018 8:57 PM
[2018-04-02 21:11] LABS: BASO % 1.1 %; BASO ABS # 0.08 K/uL (0-0.2); EOS % 9.5 %; EOS ABS # 0.72 K/uL (0-0.5); HEMATOCRIT 40.4 % (37-47); HEMOGLOBIN 13.9 g/dL (12.0-16.0); IG# 0.01 K/uL (0.00-0.02); LYMPH % 33.6 %; LYMPH ABS # 2.55 K/uL (1.2-3.4); MEAN CELL VOLUME 92.7 fL (80-100); MEAN CORPUSCULAR HEMOGLOBIN 31.9 pg (25-34); MEAN CORPUSCULAR HGB CONC 34.4 g/dl (32-36); MEAN PLATELET VOLUME 10.1 fL (7.4-10.4); MONO % 11.1 %; MONO ABS # 0.84 K/uL (0.11-0.59); NEUT % 44.6 %; NEUT ABS # 3.38 K/uL (1.4-6.5); PLATELET COUNT 265 K/uL (130-400); RED CELL DISTRIBUTION WIDTH SD 47.4 fL (36.4-46.3); WHITE BLOOD COUNT 7.58 K/uL (4.8-10.8)
[2018-04-02 21:14] LABS: INR 0.9 (0.9-1.1); PTT PATIENT 24.5 SECONDS (21.0-31.0)
[2018-04-02] MEDS ORDERED: RECOMBINANT IV STA (21:41)
[2018-04-02] MEDS ORDERED: ALTEPLASE IV STA (21:41)
[2018-04-02 21:45] LABS: ALBUMIN 3.9 gm/dl (3.4-5.0); CALCIUM 8.4 mg/dl (8.5-10.1); CREATININE 0.87 mg/dl (0.60-1.20)
[2018-04-02] MEDS ORDERED: SET 2260-0500 IV ONE (21:45)
[2018-04-02] MEDS ORDERED: ALTEPLASE IV SCH ×2 (21:45→22:00)
[2018-04-02] MEDS ORDERED: RECOMBINANT IV SCH ×2 (21:45→22:00)
[2018-04-02 21:54] VITALS: O2SAT 96; Ht 157.5 cm; Wt 77.7 kg
[2018-04-02 21:58] LABS: POTASSIUM 3.6 mmol/L (3.5-5.1)
[2018-04-02] MEDS ORDERED: CAFFEINE PO (22:05)
[2018-04-02] MEDS ORDERED: BUTALBITAL PO (22:05)
[2018-04-02] MEDS ORDERED: CODEINE PO (22:05)
[2018-04-02] MEDS ORDERED: ACETAMINOPHEN PO (22:05)
[2018-04-02] MEDS ORDERED: CALCIUM GLUCONATE 10% 1,000 MG in SODIUM CHLORIDE 0.9% 50ML 50 ML IV STA (22:38)
--- NOTE | 2018-04-02 23:08 | EMERGENCY ROOM VISIT NOTE ---
History Report prepared by Ryleyibdrew: Dago Keller Under the Supervision of: Dr. Carrillo Stacy D.O. First contact with patient: 20:56 Chief Complaint: STROKE SYMPTOMS Stated Complaint: STROKE ALERT History of Present Illness The patient is a 72 year old female who presents to the Emergency Room with complaints of persistent facial droop since 1939 today. The patient states that she was talking, when her informed her that her face was drooping. She states that she has had a migraine for 20 days, which is out of the norm for her. She has a history of migraines. The patient was last known well at 1940 today. Per EMS, the patient had slurred speech. Source of History: patient Onset: 1939 today Position: other (facial) Quality: other (droop) Timing: other (persistent) Associated Symptoms: + headache Note: Notes slurred speech. Review of Systems See HPI for pertinent positives & negatives. A total of 10 systems reviewed and were otherwise negative. Past Medical & Surgical Medical Problems: (1) Acid reflux (2) Cholelithiasis (3) CVA (cerebral vascular accident) Family History Cancer Social History Smoking Status: Never Smoker Smokeless Tobacco Use: No Alcohol Use: none Drug Use: none Marital Status: Housing Status: lives with significant other Occupation Status: employed Current/Historical Medications Scheduled Aspirin (Aspirin Ec), 81 MG PO QAM Atenolol (Tenormin), 50 MG PO DAILY Quetiapine Fumarate (Seroquel), 25 MG PO HS Simvastatin (Zocor), 40 MG PO QPM Scheduled PRN [But/APAP/CAF-CODEINE], 1 CAP PO DAILY PRN for Migraine Allergies Coded Allergies: No Known Allergies (Verified , 11/26/16) Physical Exam Vital Signs Date Time Temp Pulse Resp B/P (MAP) Pulse Ox O2 Delivery O2 Flow Rate FiO2 04/02/18 23:43 68 18 141/70 96 Room Air 04/02/18 23:43 68 18 141/70 96 Room Air 04/02/18 23:22 72 17 134/61 96 Room Air 04/02/18 23:15 71 18 96 Room Air 04/02/18 23:07 70 17 170/64 95 Room Air 04/02/18 23:01 71 17 170/64 96 Room Air 04/02/18 22:45 72 17 137/92 95 Room Air 04/02/18 22:37 75 18 96 04/02/18 22:34 73 18 130/63 97 Room Air 04/02/18 22:34 130/63 04/02/18 22:27 79 18 97 04/02/18 22:24 154/58 04/02/18 22:17 74 17 96 04/02/18 22:15 74 17 119/87 97 Room Air 04/02/18 22:14 119/87 04/02/18 22:14 74 17 119/87 96 Room Air 04/02/18 22:07 72 16 97 04/02/18 22:02 77 17 155/67 96 Room Air 04/02/18 22:02 155/67 04/02/18 21:55 84 17 97 04/02/18 21:54 174/55 04/02/18 21:54 96 Room Air 04/02/18 21:51 188/70 04/02/18 21:45 81 20 98 04/02/18 21:40 191/104 04/02/18 21:36 81 24 96 04/02/18 21:31 163/121 04/02/18 21:26 85 26 04/02/18 21:20 177/77 04/02/18 21:18 175/92 04/02/18 21:16 75 21 96 04/02/18 21:10 79 04/02/18 21:06 18 97 Room Air 04/02/18 21:06 89 25 97 04/02/18 21:01 142/93 04/02/18 20:50 37.3 93 18 142/93 98 Room Air Physical Exam VITAL SIGNS: were reviewed as above. GENERAL:Non-toxic in appearance. SKIN: Warm dry and pink. HEAD: Normocephalic and atraumatic. OROPHARYNX: Is clear and moist NECK: Supple without lymphadenopathy or meningismus. LUNGS: clear. HEART: Regular rate and rhythm. ABDOMEN: Soft and nontender. EXTREMITIES: Warm and well perfused. NEUROLOGICALLY: Awake alert and oriented. There is no pronator drift. Cerebellar testing is within normal limits. There is no nystagmus. Vision is grossly normal. Has a preferred rightward gaze, although able to overcome it with redirection. Left side facial droop. Minimal slurring of speech. MUSCULOSKELETAL: Good muscle tone. No evidence of trauma. Medical Decision & Procedures ER Provider Diagnostic Interpretation: Radiology results as stated below per my review and radiologist interpretation: HEAD WITHOUT CONTRAST (CT) CLINICAL HISTORY: 72 years-old Female with STROKE. Acute migraine with strokelike symptoms TECHNIQUE: Multiple axial CT images of the head were obtained without contrast. A dose lowering technique was utilized adhering to the principles of ALARA. CT DOSE: 537.48 mGy.cm COMPARISON: None. FINDINGS: No acute intracranial hemorrhage, midline shift, intracranial mass, hydrocephalus, territorial ischemia or abnormal extra-axial collection. Mild brain atrophy. Senescent calcifications of the right lentiform nucleus. Minimal low-attenuation within the periventricular white matter of the cerebral hemispheres bilaterally suggests chronic microvascular ischemic changes. The calvarium is intact. The paranasal sinuses, mastoid air cells, and middle ear cavities are clear. IMPRESSION: No acute intracranial abnormality. The above report was generated using voice recognition software. It may contain grammatical, syntax or spelling errors. Electronically signed by: Shakir Fernandez M.D. 04/02/2018 9:00 PM Dictated Date/Time: 04/02/2018 8:57 PM Laboratory Results 04/02/18 21:02 Red Blood Count 4.36, Mean Corpuscular Volume 92.7, Mean Corpuscular Hemoglobin 31.9, Mean Corpuscular Hemoglobin Concent 34.4, Mean Platelet Volume 10.1, Neutrophils (%) (Auto) 44.6, Lymphocytes (%) (Auto) 33.6, Monocytes (%) (Auto) 11.1, Eosinophils (%) (Auto) 9.5, Basophils (%) (Auto) 1.1, Neutrophils # (Auto ) 3.38, Lymphocytes # (Auto) 2.55, Monocytes # (Auto) 0.84, Eosinophils # (Auto ) 0.72, Basophils # (Auto) 0.08 04/02/18 21:02 Test 04/02/18 21:02 04/02/18 23:31 White Blood Count 7.58 K/uL (4.8-10.8) Red Blood Count 4.36 M/uL (4.2-5.4) Hemoglobin 13.9 g/dL (12.0-16.0) Hematocrit 40.4 % (37-47) Mean Corpuscular Volume 92.7 fL (80-100) Mean Corpuscular Hemoglobin 31.9 pg (25-34) Mean Corpuscular Hemoglobin Concent 34.4 g/dl (32-36) Platelet Count 265 K/uL (130-400) Mean Platelet Volume 10.1 fL (7.4-10.4) Neutrophils (%) (Auto) 44.6 % Lymphocytes (%) (Auto) 33.6 % Monocytes (%) (Auto) 11.1 % Eosinophils (%) (Auto) 9.5 % Basophils (%) (Auto) 1.1 % Neutrophils # (Auto) 3.38 K/uL (1.4-6.5) Lymphocytes # (Auto) 2.55 K/uL (1.2-3.4) Monocytes # (Auto) 0.84 K/uL (0.11-0.59) Eosinophils # (Auto) 0.72 K/uL (0-0.5) Basophils # (Auto) 0.08 K/uL (0-0.2) RDW Standard Deviation 47.4 fL (36.4-46.3) RDW Coefficient of Variation 14.0 % (11.5-14.5) Immature Granulocyte % (Auto) 0.1 % Immature Granulocyte # (Auto) 0.01 K/uL (0.00-0.02) Prothrombin Time 9.6 SECONDS (9.0-12.0) Prothromb Time International Ratio 0.9 (0.9-1.1) Activated Partial Thromboplast Time 24.5 SECONDS (21.0-31.0) Partial Thromboplastin Ratio 0.9 Anion Gap 5.0 mmol/L (3-11) Est Creatinine Clear Calc Drug Dose 57.9 ml/min Estimated GFR () 76.6 Estimated GFR (Non- 66.1 BUN/Creatinine Ratio 16.6 (10-20) Calcium Level 8.4 mg/dl (8.5-10.1) Total Bilirubin 0.3 mg/dl (0.2-1) Aspartate Amino Transf (AST/SGOT) 36 U/L (15-37) Alanine Aminotransferase (ALT/SGPT) 35 U/L (12-78) Alkaline Phosphatase 92 U/L (45-117) Total Protein 8.0 gm/dl (6.4-8.2) Albumin 3.9 gm/dl (3.4-5.0) Globulin 4.1 gm/dl (2.5-4.0) Albumin/Globulin Ratio 0.9 (0.9-2) Thyroid Stimulating Hormone (TSH) 4.190 uIu/ml (0.300-4.500) Chemistry Specimen Hemolysis Urine Color YELLOW Urine Appearance CLOUDY (CLEAR) Urine pH 5.0 (4.5-7.5) Urine Specific Stamps 1.026 (1.000-1.030) Urine Protein TRACE (NEG) Urine Glucose (UA) NEG (NEG) Urine Ketones NEG (NEG) Urine Occult Blood TRACE (NEG) Urine Nitrite NEG (NEG) Urine Bilirubin NEG (NEG) Urine Urobilinogen NEG (NEG) Urine Leukocyte Esterase TRACE (NEG) Laboratory results as stated above per my review. Medications Administered Medications (Trade) Dose Ordered Sig/Priyanka Route Start Time Stop Time Status Last Admin Dose Admin Alteplase, Recombinant 68.4 mg/Empty Bag 68.4 ml @ 0 mls/hr TODAY@2200 IV 04/02/18 22:00 04/02/18 22:01 DC 04/02/18 21:58 68.4 MLS/HR Alteplase, Recombinant 7.6 mg/Syringe 7.6 ml @ 7.6 mls/min TODAY@2144 IV 04/02/18 21:45 04/02/18 23:00 DC 04/02/18 21:45 7.6 MLS/MIN Calcium Gluconate 1000 mg/Sodium Chloride 60 ml @ 240 mls/hr NOW STAT IV 04/02/18 22:38 04/02/18 22:52 DC 04/02/18 23:08 240 MLS/HR ECG Per My Interpretation Indication: other (stroke-like symptoms) Rate (beats per minute): 77 Rhythm: sinus rhythm Findings: no ectopy, other (No ST elevation) ED Course 2055: Previous medical records were reviewed. The patient was evaluated in room B1. A complete history and physical examination was performed. 2109: I spoke with Dr. Salvador, neurologist. We discussed the patient's case. The patient will be further evaluated. 2129: I reassessed the patient at this time. I spoke with the patient's family. 2132: I spoke with Dr. Salvador, neurologist. He is evaluating the patient. He recommends tPA. 2144: Ordered Alteplase, Recombinant 7.6 mg/Syring 7.6 ml @ 7.6 mls/min IV 2199: Ordered Alteplase, Recombinant 68.4 mg/Empty Bag 68.4 ml @ 0 mls/hr IV 2225: [facility] We discussed the patient' s case. The patient will be evaluated by the [facility] for further management. Medical Decision Differentials include: Acute coronary syndrome, myocardial infarction, CVA, TIA , anemia, infection, pneumonia, UTI, pyelonephritis, poor nutrition, dehydration , electrolyte disturbance, and hypoglycemia. This is a 72-year-old female who presents to the ED with a chief complaint of stroke. The patient's symptoms started about 1940 hrs. She is brought in by EMS. Stroke alert was called prior to the patient's arrival. She went directly to CT scan. Upon my evaluation of the patient and her physical exam reveals some rightward gaze and preference that is able to be overcome with some redirection and focus. The patient's speech slightly slurred and she has a mild left-sided facial droop. Her exam is otherwise unremarkable. There is no extremity weakness or abnormal cerebellar testing. CT scan of the head was negative. Blood work was unremarkable. EKG showed sinus rhythm. The patient was evaluated by tele-neurology from [facility]. They recommended TPA because it was felt that this was a brainstem type lesion. TPA was administered. The patient will be seen by the hospitalist for further inpatient evaluation and care. Medication Reconcilliation Current Medication List: was personally reviewed by nj Blood Pressure Screening Patient's blood pressure: Elevated blood pressure monitored by hospitalist. Consults Time Called: 2104 Consulting Physician: Dr. Salvador neurologist Returned Call: 2109 I spoke with danna Mar. We discussed the patient's case. The patient will be further evaluated. 2132: I spoke with danna Mar. He is evaluating the patient. He recommends tPA. Additional Consults: Time Called: 2223 [facility]ed [facility] Returned Call: 2225 Additional Comments: [facility] We discussed the patient's case. The patient will be evaluated by the [facility] for further management. Impression Primary Impression: CVA (cerebral vascular accident) Critical Care I have personally spent greater than 35 minutes of critical care time in the direct management of this patient. This includes bedside care, interpretation of diagnostic studies, and testing, discussion with consultants, patient, and family members, and other required patient management activities. This 35 minutes is in excess of all separately billable procedures. Scribe Attestation The scribe's documentation has been prepared under my direction and personally reviewed by me in its entirety. I confirm that the note above accurately reflects all work, treatment, procedures, and medical decision making performed by me. Departure Information Dispostion Being Evaluated By Hospitalist Referrals Alonso Barth D.OGissell (PCP) Patient Instructions My [facility] Stroke History Time Last Known Well 1939 today Stroke t-PA Criteria Reviewed Meets criteria for t-PA Reason t-PA Not Given Treatment provided - N/A
--- NOTE | 2018-04-02 23:23 | Critical Care Consultation ---
Critical Care Consultation Date of Consultation: April 02, 2018. Attending Physician: Reason for Consultation: 72-year-old female with acute CVA with RIGHT-sided gaze and LEFT-sided facial droop treated with TPA requiring close hemodynamic and neurological monitoring. History of Present Illness Patient is a 72-year-old otherwise healthy female with a history of migraines, depression, hypothyroidism, hypertension, and hyperlipidemia who is enjoying her typical state of health until approximately 730 this evening. At this time , she was having a conversation with her when he noted that she had a LEFT-sided facial droop. She does admit to having some slurred speech and difficulty formulating words. In addition, she was experiencing RIGHT-sided gaze as well. She was brought to the emergency department where she underwent complete neurological assessment. Per recommendations of the [facility] neurology group via telemedicine, it was recommended that the patient receive intravenous TPA. Her laboratory assessment was essentially unremarkable. No leukocytosis. No concerning anemia. EKG is unremarkable. CT the head demonstrates no acute process. On evaluation in the ICU, the patient is awake, alert, and oriented. She does have noticeable RIGHT-sided gaze, but is easily distracted and is able to look forward. Per nursing evaluation, she is unable to see structures in the LEFT visual field. She denies any numbness or weakness into her extremities. She reports feeling better at this time. Her reports improvement of the facial droop. Currently, the patient does report a continued migraine headache which she is experienced for the past 20 days. She does have a significant past medical history of migrainous headaches and reports that this is not worse than usual. Despite above-mentioned symptoms, she denies any dizziness, lightheadedness, blurry vision, double vision, numbness/weakness to the extremities, chest pain, palpitations, shortness of breath, nausea, vomiting, abdominal pain, hematochezia, melena, hematuria, or dysuria. Patient lives at home with her . She denies any other substance use. Past Medical/Surgical History Medical Problems: (1) Acid reflux (2) Cholelithiasis Family History Cancer Mother/Brother - CVA Social History Smoking Status: Never Smoker Smokeless Tobacco Use: No Alcohol Use: none Drug Use: none Marital Status: Housing Status: lives with significant other Occupation Status: employed Allergies Coded Allergies: No Known Allergies (Verified , 11/26/16) Home Medications Scheduled Aspirin (Aspirin Ec), 81 MG PO QAM Atenolol (Tenormin), 50 MG PO DAILY Quetiapine Fumarate (Seroquel), 25 MG PO HS Simvastatin (Zocor), 40 MG PO QPM Scheduled PRN [But/APAP/CAF-CODEINE], 1 CAP PO DAILY PRN for Migraine Review of Systems A complete 10-point Review of Systems was discussed with the patient, with pertinent positives and negatives listed in the History of Present Illness. All remaining Review of Systems questions can be considered negative unless otherwise specified. Physical Exam Date Time Temp Pulse Resp B/P (MAP) Pulse Ox O2 Delivery O2 Flow Rate FiO2 04/02/18 23:07 70 17 170/64 95 Room Air 04/02/18 23:01 71 17 170/64 96 Room Air 04/02/18 22:45 72 17 137/92 95 Room Air 04/02/18 22:37 75 18 96 04/02/18 22:34 73 18 130/63 97 Room Air 04/02/18 22:34 130/63 04/02/18 22:27 79 18 97 04/02/18 22:24 154/58 04/02/18 22:17 74 17 96 04/02/18 22:15 74 17 119/87 97 Room Air 04/02/18 22:14 119/87 04/02/18 22:14 74 17 119/87 96 Room Air 04/02/18 22:07 72 16 97 04/02/18 22:02 77 17 155/67 96 Room Air 04/02/18 22:02 155/67 04/02/18 21:55 84 17 97 04/02/18 21:54 174/55 04/02/18 21:54 96 Room Air 04/02/18 21:51 188/70 04/02/18 21:45 81 20 98 04/02/18 21:40 191/104 04/02/18 21:36 81 24 96 04/02/18 21:31 163/121 04/02/18 21:26 85 26 04/02/18 21:20 177/77 04/02/18 21:18 175/92 04/02/18 21:16 75 21 96 04/02/18 21:10 79 04/02/18 21:06 18 97 Room Air 04/02/18 21:06 89 25 97 04/02/18 21:01 142/93 04/02/18 20:50 37.3 93 18 142/93 98 Room Air VITAL SIGNS - Vital signs and nursing notes were reviewed. GENERAL - 72-year-old female appearing her stated age who is in no acute distress. Communicates well with provider and answers questions appropriately. HEAD - Normocephalic, Atraumatic. EYES - PERRL with RIGHT-sided LATERAL gaze. Sclera anicteric. Palpebral conjunctiva pink and moist with no injection noted. EARS - No deformities of external structures noted on gross examination bilaterally. NOSE - Midline and without cyanosis. Scant amount of blood noted in the LEFT naris without aleksandar bleeding. Septum midline without deviation or septal hematoma noted. MOUTH/OROPHARYNX - LEFT-Sided mouth droop. Without perioral cyanosis. Buccal mucosa pink and moist and without leukoplakia. Tongue midline with equal elevation of palate bilaterally. No tonsillar hypertrophy, erythema, or exudates noted. Good dentition noted. NECK - Neck with FROM. Supple to palpation. No nuchal rigidity. LUNGS - Chest wall symmetric without accessory muscle use, intercostals retractions, or central cyanosis. Normal vesicular breath sounds CTA B/L. No wheezes, rales, or rhonchi appreciated. CARDIAC - RRR with S1/S2. No murmur, rubs, or gallops appreciated. ABDOMEN - Abdominal contour flat and without pulsations or visible masses. BS normoactive all four quadrants. No tenderness, palpable masses, hepatosplenomegaly, or ascites noted. EXTREMITIES - No pretibial edema present. +3/5 radial and dorsalis pedis pulses palpated throughout. FROM with no tremors, fasciculations, or clonus noted on PROM throughout. +5/5 strength noted in UE/LE bilaterally. NEUROLOGIC - Exam POSITIVE only for RIGHT-sided fixed gaze (easily distracted to return to baseline) and LEFT mouth droop. Nursing staff reports LEFT-sided Contralateral Homonymous Hemianopia. Otherwise, unremarkable. Sensory intact to light touch throughout. Patellar reflexes +2/4. Patient able to perform rapid alternating movements appropriately. Negative Drift. Negative [id number] test. PSYCH - A&Ox3 and cooperates fully with examiner. Pt is very pleasant and interacts well with examiner. Laboratory Results Last 24 Hours Test 04/02/18 20:37 04/02/18 21:02 04/02/18 22:39 White Blood Count 7.58 K/uL Red Blood Count 4.36 M/uL Hemoglobin 13.9 g/dL Hematocrit 40.4 % Mean Corpuscular Volume 92.7 fL Mean Corpuscular Hemoglobin 31.9 pg Mean Corpuscular Hemoglobin Concent 34.4 g/dl Platelet Count 265 K/uL Mean Platelet Volume 10.1 fL Neutrophils (%) (Auto) 44.6 % Lymphocytes (%) (Auto) 33.6 % Monocytes (%) (Auto) 11.1 % Eosinophils (%) (Auto) 9.5 % Basophils (%) (Auto) 1.1 % Neutrophils # (Auto) 3.38 K/uL Lymphocytes # (Auto) 2.55 K/uL Monocytes # (Auto) 0.84 K/uL Eosinophils # (Auto) 0.72 K/uL Basophils # (Auto) 0.08 K/uL RDW Standard Deviation 47.4 fL RDW Coefficient of Variation 14.0 % Immature Granulocyte % (Auto) 0.1 % Immature Granulocyte # (Auto) 0.01 K/uL Prothrombin Time 9.6 SECONDS Prothromb Time International Ratio 0.9 Activated Partial Thromboplast Time 24.5 SECONDS Partial Thromboplastin Ratio 0.9 Sodium Level 141 mmol/L Potassium Level 3.6 mmol/L Chloride Level 106 mmol/L Carbon Dioxide Level 30 mmol/L Anion Gap 5.0 mmol/L Blood Urea Nitrogen 14 mg/dl Creatinine 0.87 mg/dl Est Creatinine Clear Calc Drug Dose 57.9 ml/min Estimated GFR () 76.6 Estimated GFR (Non- 66.1 BUN/Creatinine Ratio 16.6 Random Glucose 95 mg/dl Calcium Level 8.4 mg/dl Total Bilirubin 0.3 mg/dl Aspartate Amino Transf (AST/SGOT) 36 U/L Alanine Aminotransferase (ALT/SGPT) 35 U/L Alkaline Phosphatase 92 U/L Total Protein 8.0 gm/dl Albumin 3.9 gm/dl Globulin 4.1 gm/dl Albumin/Globulin Ratio 0.9 Thyroid Stimulating Hormone (TSH) 4.190 uIu/ml Chemistry Specimen Hemolysis Diagnostic Results Radiological imaging and reports were reviewed by myself. Radiologist's Interpretation as follows: HEAD WITHOUT CONTRAST (CT) CLINICAL HISTORY: 72 years-old Female with STROKE. Acute migraine with strokelike symptoms TECHNIQUE: Multiple axial CT images of the head were obtained without contrast. A dose lowering technique was utilized adhering to the principles of ALARA. CT DOSE: 537.48 mGy.cm COMPARISON: None. FINDINGS: No acute intracranial hemorrhage, midline shift, intracranial mass, hydrocephalus, territorial ischemia or abnormal extra-axial collection. Mild brain atrophy. Senescent calcifications of the right lentiform nucleus. Minimal low-attenuation within the periventricular white matter of the cerebral hemispheres bilaterally suggests chronic microvascular ischemic changes. The calvarium is intact. The paranasal sinuses, mastoid air cells, and middle ear cavities are clear. IMPRESSION: No acute intracranial abnormality. Assessment & Plan (1) Gaze palsy (2) Hemianopia, homonymous, left (3) Facial droop due to acute cerebrovascular accident (CVA) (4) Received intravenous tissue plasminogen activator (tPA) in emergency department (5) Hypothyroidism (6) Bill's thyroiditis (7) Depression (8) Migraines (9) HTN (hypertension) (10) HLD (hyperlipidemia) (11) CVA (cerebral vascular accident) Reason Critically Ill: 72-year-old female with acute CVA with RIGHT-sided gaze and LEFT-sided facial droop treated with TPA requiring close hemodynamic and neurological monitoring. Neuro - * [facility] ICU: NEGATIVE * Acute CVA w/ LEFT-sided facial droop and RIGHT sided preferential gaze. * Received tPA in the ED [place] [facility] - will follow days 1&2 protocols. * Neuro checks per nursing protocol. * Swallow eval tomorrow 2/2 facial droop. NPO at this point. * Reported improvement of facial droop. * Persistent RIGHT sided gaze. Able to look to midline if encouraged to do so. * On nursing exam. Unable to identify initial letters of words to the LEFT. And difficulty w/ LEFT sided visual sweet bilaterally. Concerns for Homonymous Hemianopia. * Additionally, started w/ occasional sporadic twitch-like movement. Again, easily abates with distraction and able to perform FROM w/ equal strength bilaterally. Normal cerebellar exam. * MRI to be obtained in the AM with be very helpful for any other contributing factors (i.e. lesion). * ??EEG in the setting of presentation and w/ new RIGHT sided gaze but certainly will defer this to neurology. * Chronic Migraines: * Current migraine for the past 20 days. * Continue home Rx PRN. * Depression/Insomnia: * Continue home Rx. * This may need addressed during stay w/ new neurological findings. Cardiac - * Monitor closely on telemetry in the setting of new CVA s/s: * EKG: NSR@77bpm. No ST/T-wave abnormalities per my interpretation. QTc 445ms. * HTN/HLD: * Continue home Rx. Respiratory - * No h/o pulmonary disease. * Monitor pulse oximetry throughout stay. GI - * h/o GERD/Hiatal Hernia w/ Fundoplication: * Protonix. * Will remain NPO at this time 2/2 facial droop pending swallow study tomorrow. RENAL/LYTES - * No significant electrolyte derangements. * Will trend. - * Voiding w/o issue. ENDO - * No h/o DM: * BSGs w/ ISS/gtt per protocol. * Hypothyroidism 2/2 Bill's Thyroiditis: * Continue home Rx for now. * Will check AM TSH/Free T4 HEME - * Stable H&H. * Will monitor closely for s/s of bleeding s/p tPA administration. ID - * No c/o infection at this time. * Monitor fever curve. LINES/IV ACCESS - * PIVs x2 in place. DVT PROPHYLAXIS - * Will hold on Chemoprophylaxis 2/2 tPA administration. * SCDs I have personally spent 35 minutes of critical care time in the direct management of this patient. This is a life/limb threatening event. This includes time spent evaluating patient, direct bedside care, chart review, placing orders, interpretation of diagnostic studies, discussion with consultants, patient, and family members, as well as other required patient management activities. This time is exclusive of all separately billable procedures, and teaching time and separate from and in addition to any other critical care service time. Thank you for this consultation allow us to be part of this patient's care. Please refer to my attending physician's documentation for any further recommendations. I agree with assessment and plan of Jefferson Olson PA-C. Problem Qualifiers (1) Hypothyroidism: Hypothyroidism type: unspecified Qualified Codes: E03.9 - Hypothyroidism, unspecified (2) Depression: Major depression episode severity: unspecified (3) Migraines: Migraine type: unspecified Status migrainosus presence: with status migrainosus Intractability: intractable Qualified Codes: G43.911 - Migraine , unspecified, intractable, with status migrainosus (4) HTN (hypertension): Hypertension type: unspecified Qualified Codes: I10 - Essential (primary) hypertension (5) CVA (cerebral vascular accident): CVA mechanism: embolism Precerebral and cerebral artery: unspecified precerebral artery Qualified Codes: I63.10 - Cerebral infarction due to embolism of unspecified precerebral artery
[2018-04-02] MEDS ORDERED: ACETAMINOPHEN 325 MG TAB PO PRN (23:30)
[2018-04-02] MEDS ORDERED: PHARMACIST DISCHARGE MED REC CONSULT PRN (23:30)
[2018-04-02] MEDS ORDERED: TRAMADOL HCL 50 MG TAB PO PRN (23:30)
[2018-04-02] MEDS ORDERED: NITROGLYCERIN 0.4 MG SL PER TAB CHARGE SL PRN (23:30)
[2018-04-02] MEDS ORDERED: ICU PROTOCOL FOR HYPERGLYCEMIA PRN (23:30)
[2018-04-02] MEDS ORDERED: PROCHLORPERAZINE INJ 5 MG in SYRINGE 4 ML IV PRN (23:30)
[2018-04-02] MEDS ORDERED: LORAZEPAM 2 MG/ML 1 ML VIAL IV PRN (23:30)
[2018-04-02 23:59] VITALS: O2SAT 96
[2018-04-03] VITALS (36 sets, daily range): BP systolic 87–180; BP diastolic 58–89; PULSE 67–82; TEMP 36.7–37.4; O2SAT 90–99
[2018-04-03] MEDS ORDERED: LACTATED RINGER'S 1000ML 1,000 ML IV ONE (01:00)
--- NOTE | 2018-04-03 01:29 | HISTORY & PHYSICAL EXAMINATION ---
DATE OF ADMISSION: 04/02/2018 PRIMARY CARE PHYSICIAN: Dr. Barth. CHIEF COMPLAINT: Slurred speech, facial droop as per records. HISTORY OF PRESENT ILLNESS: History obtained from patient and records. Medical history is significant for hypertension, hyperlipidemia, hypothyroidism , chronic migraine, GERD sp surgery. Recent confinement October 2017 for aspiration pneumonitis. Around 7:00 p.m. at home, had just come back from a wedding from [place] when her heard a noise. Patient noted to have slurred speech, left-sided facial droop noted. Usual posterior migraine headache symptoms. No chest pain, no shortness of breath. Patient is compliant with home aspirin which she takes because of family history of strokes and heart disease.. Patient brought to the Emergency Room. Stroke alert called. Patient subsequently given TPA. MEDICAL HISTORY: As above. Seen by [facility] surgeon a few days ago for persistent heartburn symptoms despite surgery. Plan is repeat UGI series outpatient; nocturnal Prilosec as per notes. SURGERIES: She has had paraesophageal hernia repair in 2015, hysterectomy. HOME MEDICATIONS: Include aspirin, levothyroxine, atenolol, butalbital, Seroquel, Zocor. ALLERGIES: No known drug allergies. FAMILY HISTORY: Stroke and heart disease. PERSONAL AND SOCIAL HISTORY: Nonsmoker, nondrinker. 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 REVIEW OF SYSTEMS: As per HPI, all 10 systems reviewed. All other ROS negative. PHYSICAL EXAMINATION: VITAL SIGNS: Blood pressure was noted to be 170/64, pulse rate 71, RR 17, temperature 37.3, sats 98 on room air. GENERAL: Noted to be slightly anxious, no respiratory distress, obese. SKIN: Normal color, warm. HEENT: [place] palpebral conjunctivae, no ptosis. Facial asymmetry. NECK: Short, supple. CHEST: Clear to auscultation. No tenderness. HEART: RRR, No murmur. ABDOMEN: Some distention, nontender. EXTREMITIES: No LE edema. No tenderness. No gross deformities. NEUROLOGIC: Coherent with preferential gaze to the right, facial droop on the left. Equal MMTs. Gait and stance not assessed. LABORATORY DATA: Hemoglobin was noted to be 13.9, hematocrit 40, white blood cell count 5, platelets are 265. Sodium 137, potassium 3.5 BUN 40, creatinine 0.8, glucose was noted to be 95. CT head, no acute pathology. EKG as per my interpretation, 75 NSR. No ischemia, PVCs. ASSESSMENT: 1. Acute CVA probable brain stem involvement possible aspirin failure. sp TPA administration at the ER 2. Hypertensive urgency 2 to above. 3. Hyperlipidemia on statin therapy. 4. Chronic migraine. 5. GERD sp surgery PLAN: ICU monitoring post TPA Neurochecks as per protocol stroke workup : MRI/MRA brain, 2D echo, carotid Dopplers. Will likely need Plavix for possible aspiration for secondary stroke prevention. Neurology consult RE possible stroke. (Patient known to Dr. Saini for chronic migraine.) Check lipid profile, continue statin Rx Permissive hypertension for now. PPI for reflux DVT prophylaxis SCDs 24h post TPA, start Lovenox if [address] follow-up study negative for bleed Full code. Patient's is requesting updates from providers. Hi Burt at [phone]. MTDD
[2018-04-03 04:26] LABS: BASO % 0.6 %; BASO ABS # 0.05 K/uL (0-0.2); EOS % 5.6 %; EOS ABS # 0.45 K/uL (0-0.5); HEMATOCRIT 38.6 % (37-47); IG# 0.02 K/uL (0.00-0.02); LYMPH % 25.2 %; LYMPH ABS # 2.03 K/uL (1.2-3.4); MEAN CELL VOLUME 93.2 fL (80-100); MEAN CORPUSCULAR HEMOGLOBIN 31.4 pg (25-34); MEAN CORPUSCULAR HGB CONC 33.7 g/dl (32-36); MEAN PLATELET VOLUME 9.9 fL (7.4-10.4); MONO % 8.4 %; MONO ABS # 0.68 K/uL (0.11-0.59); NEUT ABS # 4.84 K/uL (1.4-6.5); PLATELET COUNT 238 K/uL (130-400); RED CELL DISTRIBUTION WIDTH CV 14.1 % (11.5-14.5); RED CELL DISTRIBUTION WIDTH SD 48.2 fL (36.4-46.3); WHITE BLOOD COUNT 8.07 K/uL (4.8-10.8)
[2018-04-03 04:52] LABS: CALCIUM 8.6 mg/dl (8.5-10.1); CREATININE 0.74 mg/dl (0.60-1.20); POTASSIUM 3.7 mmol/L (3.5-5.1)
[2018-04-03 04:56] LABS: PHOSPHORUS 3.9 mg/dl (2.5-4.9)
--- NOTE | 2018-04-03 05:50 | Critical Care Progress Note ---
Critical Care Progress Note Date of Service April 03, 2018. ICU Day ICU Day Number: [address] Espinal Subjective Patient had an uneventful night. On evaluation today, she reports feeling that her headache has improved. She offers no complaints at this point. Objective VITAL SIGNS - Vital signs and nursing notes were reviewed. GENERAL - 72-year-old female appearing her stated age who is in no acute distress. Communicates well with provider and answers questions appropriately. HEAD - Normocephalic, Atraumatic. EYES - PERRL improvement of RIGHT-sided LATERAL gaze. Sclera anicteric. Palpebral conjunctiva pink and moist with no injection noted. EARS - No deformities of external structures noted on gross examination bilaterally. NOSE - Midline and without cyanosis. Scant amount of blood noted in the LEFT naris without aleksandar bleeding. Septum midline without deviation or septal hematoma noted. MOUTH/OROPHARYNX - LEFT-Sided mouth droop with great improvement. Without perioral cyanosis. Buccal mucosa pink and moist and without leukoplakia. Tongue midline with equal elevation of palate bilaterally. No tonsillar hypertrophy, erythema, or exudates noted. Good dentition noted. NECK - Neck with FROM. Supple to palpation. No nuchal rigidity. LUNGS - Chest wall symmetric without accessory muscle use, intercostals retractions, or central cyanosis. Normal vesicular breath sounds CTA B/L. No wheezes, rales, or rhonchi appreciated. CARDIAC - RRR with S1/S2. No murmur, rubs, or gallops appreciated. ABDOMEN - Abdominal contour flat and without pulsations or visible masses. BS normoactive all four quadrants. No tenderness, palpable masses, hepatosplenomegaly, or ascites noted. EXTREMITIES - No pretibial edema present. +3/5 radial and dorsalis pedis pulses palpated throughout. FROM with no tremors, fasciculations, or clonus noted on PROM throughout. +5/5 strength noted in UE/LE bilaterally. NEUROLOGIC - Exam POSITIVE only for RIGHT-sided fixed gaze (nearly resolved) and LEFT mouth droop (nearly resolved). Resolved LEFT-sided Contralateral Homonymous Hemianopia. Otherwise, unremarkable. Sensory intact to light touch throughout. Patellar reflexes +2/4. Patient able to perform rapid alternating movements appropriately. Negative Drift. Negative [id number] test. PSYCH - A&Ox3 and cooperates fully with examiner. Pt is very pleasant and interacts well with examiner. Assessment & Plan (1) Gaze palsy (2) Hemianopia, homonymous, left (3) Facial droop due to acute cerebrovascular accident (CVA) (4) Received intravenous tissue plasminogen activator (tPA) in emergency department (5) Hypothyroidism (6) Bill's thyroiditis (7) Depression (8) Migraines (9) HTN (hypertension) (10) HLD (hyperlipidemia) (11) CVA (cerebral vascular accident) Reason Critically Ill: 72-year-old female with acute CVA with RIGHT-sided gaze and LEFT-sided facial droop treated with TPA requiring close hemodynamic and neurological monitoring. Neuro - * CAM ICU: NEGATIVE * Acute CVA w/ LEFT-sided facial droop and RIGHT sided preferential gaze. * Proceed with Day 2 protocols s/p tPA administration. * Greatly improved from presentation. * LEFT sided facial droop - improved. * Neuro checks per nursing protocol. * Persistent RIGHT sided gaze - nearly resolved. * On nursing exam. Unable to identify initial letters of words to the LEFT. And difficulty w/ LEFT sided visual sweet bilaterally. Concerns for Homonymous Hemianopia. - RESOLVED. * Additionally, started w/ occasional sporadic twitch-like movement. Again, easily abates with distraction and able to perform FROM w/ equal strength bilaterally. Normal cerebellar exam. - Nearly Resolved. * Chronic Migraines: * Current migraine for the past 20 days. * Continue home Rx PRN. * Depression/Insomnia: * Continue home Rx. * This may need addressed during stay w/ new neurological findings. Cardiac - * HTN/HLD: * Continue home Rx. Respiratory - * No h/o pulmonary disease. * Monitor pulse oximetry throughout stay. GI - * h/o GERD/Hiatal Hernia w/ Fundoplication: * Protonix. * Progress diet. RENAL/LYTES - * No significant electrolyte derangements. * Will trend. - * Voiding w/o issue. ENDO - * No h/o DM: * BSGs w/ ISS/gtt per protocol. * Hypothyroidism 2/2 Bill's Thyroiditis: * Home Rx HEME - * Stable H&H. * Continue to monitor closely for s/s of bleeding s/p tPA administration. ID - * No c/o infection at this time. * Monitor fever curve. LINES/IV ACCESS - * PIVs x2 in place. DVT PROPHYLAXIS - * Will hold on Chemoprophylaxis 2/2 tPA administration. * SCDs Documentation: Aleksandr Olson PA-C Thank you for this consultation allow us to be part of this patient's care. Please refer to my attending physician's documentation for any further recommendations. I have personally evaluated and examined this patient. I agree with assessment and plan of Jefferson Olson PA-C. Significant improvement status post TPA. Await MRI and formal neurology evaluation. Patient will likely be candidate for transition to telemetry status once 24 hours post TPA administration Consults & Procedures Consultants: Neurology Data Medications: Current Inpatient Medications Medications (Trade) Dose Ordered Sig/Priyanka Route Start Time Stop Time Status Last Admin Dose Admin Acetaminophen (Tylenol Tab) 650 mg Q4H PRN PO 04/02/18 23:30 05/02/18 23:29 Lorazepam (Ativan Inj) 0.25 mg Q4H PRN IV 04/02/18 23:30 05/02/18 23:29 Nitroglycerin (Nitrostat Tab) 0.4 mg UD PRN SL 04/02/18 23:30 05/02/18 23:29 Miscellaneous Information (Icu Protocol For Hyperglycemia) 1 ea PRN PRN N/A 04/02/18 23:30 04/04/18 23:29 Miscellaneous Information (Pharmacist Discharge Med Rec Consult) 1 ea UD PRN N/A 04/02/18 23:30 05/02/18 23:29 Quetiapine Fumarate (seroQUEL TAB) 25 mg HS PO 04/03/18 21:00 05/03/18 20:59 Simvastatin (Zocor Tab) 40 mg QPM PO 04/03/18 21:00 05/03/18 20:59 Tramadol HCl (Ultram Tab) 25 mg Q6H PRN PO 04/02/18 23:30 05/02/18 23:29 Prochlorperazine Edisylate 5 mg/ Syringe 5 ml @ 5 mls/min Q6H PRN IV 04/02/18 23:30 05/02/18 23:29 Morphine Sulfate (MoRPHine SULFATE INJ) 2 mg Q4H PRN IV 04/02/18 23:30 04/16/18 23:29 Lactated Ringer's 1,000 ml @ 75 mls/hr [id number] ONCE IV 04/03/18 01:00 04/03/18 14:19 04/03/18 00:48 75 MLS/HR Pantoprazole Sodium (Protonix Tab) 40 mg QAM PO 04/03/18 09:00 05/03/18 08:59 Vital Signs: Date Time Temp Pulse Resp B/P (MAP) Pulse Ox O2 Delivery O2 Flow Rate FiO2 04/03/18 05:00 73 18 143/58 (86) 92 04/03/18 04:31 72 19 146/58 (87) 94 Room Air 04/03/18 04:01 37.1 77 22 146/73 (97) 96 Room Air 04/03/18 04:00 96 Room Air 04/03/18 03:33 75 28 176/89 (118) 96 Room Air 04/03/18 03:01 72 16 148/60 (89) 95 Room Air 04/03/18 02:30 70 16 151/72 (98) 96 Room Air 04/03/18 02:00 68 19 164/61 (95) 95 Room Air 04/03/18 01:30 75 17 164/61 (95) 97 Room Air 04/03/18 01:02 76 21 159/64 (95) 97 04/03/18 00:45 70 16 107/73 (84) 98 04/03/18 00:31 70 21 147/66 (93) 98 04/03/18 00:16 68 19 143/75 (97) 96 04/03/18 00:02 37.4 70 20 87/66 (73) 98 Room Air 04/02/18 23:59 96 Room Air 04/02/18 23:43 68 18 141/70 96 Room Air 04/02/18 23:43 68 18 141/70 96 Room Air 04/02/18 23:22 72 17 134/61 96 Room Air 04/02/18 23:15 71 18 96 Room Air 04/02/18 23:07 70 17 170/64 95 Room Air 04/02/18 23:01 71 17 170/64 96 Room Air 04/02/18 22:45 72 17 137/92 95 Room Air 04/02/18 22:37 75 18 96 04/02/18 22:34 73 18 130/63 97 Room Air 04/02/18 22:34 130/63 04/02/18 22:27 79 18 97 04/02/18 22:24 154/58 04/02/18 22:17 74 17 96 04/02/18 22:15 74 17 119/87 97 Room Air 04/02/18 22:14 119/87 04/02/18 22:14 74 17 119/87 96 Room Air 04/02/18 22:07 72 16 97 04/02/18 22:02 77 17 155/67 96 Room Air 04/02/18 22:02 155/67 04/02/18 21:55 84 17 97 04/02/18 21:54 174/55 04/02/18 21:54 96 Room Air 04/02/18 21:51 188/70 04/02/18 21:45 81 20 98 04/02/18 21:40 191/104 04/02/18 21:36 81 24 96 04/02/18 21:31 163/121 04/02/18 21:26 85 26 04/02/18 21:20 177/77 04/02/18 21:18 175/92 04/02/18 21:16 75 21 96 04/02/18 21:10 79 04/02/18 21:06 18 97 Room Air 04/02/18 21:06 89 25 97 04/02/18 21:01 142/93 04/02/18 20:50 37.3 93 18 142/93 98 Room Air Laboratory Results: Last 24 Hours Test 04/02/18 21:02 04/02/18 23:31 04/03/18 04:06 04/03/18 04:08 White Blood Count 7.58 K/uL 8.07 K/uL Red Blood Count 4.36 M/uL 4.14 M/uL Hemoglobin 13.9 g/dL 13.0 g/dL Hematocrit 40.4 % 38.6 % Mean Corpuscular Volume 92.7 fL 93.2 fL Mean Corpuscular Hemoglobin 31.9 pg 31.4 pg Mean Corpuscular Hemoglobin Concent 34.4 g/dl 33.7 g/dl Platelet Count 265 K/uL 238 K/uL Mean Platelet Volume 10.1 fL 9.9 fL Neutrophils (%) (Auto) 44.6 % 60.0 % Lymphocytes (%) (Auto) 33.6 % 25.2 % Monocytes (%) (Auto) 11.1 % 8.4 % Eosinophils (%) (Auto) 9.5 % 5.6 % Basophils (%) (Auto) 1.1 % 0.6 % Neutrophils # (Auto) 3.38 K/uL 4.84 K/uL Lymphocytes # (Auto) 2.55 K/uL 2.03 K/uL Monocytes # (Auto) 0.84 K/uL 0.68 K/uL Eosinophils # (Auto) 0.72 K/uL 0.45 K/uL Basophils # (Auto) 0.08 K/uL 0.05 K/uL RDW Standard Deviation 47.4 fL 48.2 fL RDW Coefficient of Variation 14.0 % 14.1 % Immature Granulocyte % (Auto) 0.1 % 0.2 % Immature Granulocyte # (Auto) 0.01 K/uL 0.02 K/uL Prothrombin Time 9.6 SECONDS Prothromb Time International Ratio 0.9 Activated Partial Thromboplast Time 24.5 SECONDS Partial Thromboplastin Ratio 0.9 Sodium Level 141 mmol/L 140 mmol/L Potassium Level 3.6 mmol/L 3.7 mmol/L Chloride Level 106 mmol/L 109 mmol/L Carbon Dioxide Level 30 mmol/L 26 mmol/L Anion Gap 5.0 mmol/L 5.0 mmol/L Blood Urea Nitrogen 14 mg/dl 14 mg/dl Creatinine 0.87 mg/dl 0.74 mg/dl Est Creatinine Clear Calc Drug Dose 57.9 ml/min 66.7 ml/min Estimated GFR () 76.6 93.2 Estimated GFR (Non- 66.1 80.4 BUN/Creatinine Ratio 16.6 19.1 Random Glucose 95 mg/dl 105 mg/dl Calcium Level 8.4 mg/dl 8.6 mg/dl Magnesium Level 2.0 mg/dl 1.9 mg/dl Total Bilirubin 0.3 mg/dl Aspartate Amino Transf (AST/SGOT) 36 U/L Alanine Aminotransferase (ALT/SGPT) 35 U/L Alkaline Phosphatase 92 U/L Total Protein 8.0 gm/dl Albumin 3.9 gm/dl Globulin 4.1 gm/dl Albumin/Globulin Ratio 0.9 Thyroid Stimulating Hormone (TSH) 4.190 uIu/ml Chemistry Specimen Hemolysis Urine Color YELLOW Urine Appearance CLOUDY Urine pH 5.0 Urine Specific [place] 1.026 Urine Protein TRACE Urine Glucose (UA) NEG Urine Ketones NEG Urine Occult Blood TRACE Urine Nitrite NEG Urine Bilirubin NEG Urine Urobilinogen NEG Urine Leukocyte Esterase TRACE Urine WBC (Auto) 1-5 /hpf Urine RBC (Auto) 5-10 /hpf Urine Hyaline Casts (Auto) 1-5 /lpf Urine Epithelial Cells (Auto) >30 /lpf Urine Bacteria (Auto) NEG Urine Crystals Phosphorus Level 3.9 mg/dl Triglycerides Level 100 mg/dl Cholesterol Level 162 mg/dl HDL Cholesterol 62 mg/dl LDL Cholesterol, Calculated 80 mg/dl VLDL Cholesterol, Calculated 20 mg/dl Cholesterol/HDL Ratio 2.6 Free Thyroxine 0.80 ng/dl Bedside Glucose 107 mg/dl Problem Qualifiers (1) Hypothyroidism: Hypothyroidism type: unspecified Qualified Codes: E03.9 - Hypothyroidism, unspecified (2) Depression: Major depression episode severity: unspecified (3) Migraines: Migraine type: unspecified Status migrainosus presence: with status migrainosus Intractability: intractable Qualified Codes: G43.911 - Migraine , unspecified, intractable, with status migrainosus (4) HTN (hypertension): Hypertension type: unspecified Qualified Codes: I10 - Essential (primary) hypertension (5) CVA (cerebral vascular accident): CVA mechanism: embolism Precerebral and cerebral artery: unspecified precerebral artery Qualified Codes: I63.10 - Cerebral infarction due to embolism of unspecified precerebral artery
--- NOTE | 2018-04-03 07:23 | DIAGNOSTIC IMAGING REPORT ---
CHEST ONE VIEW PORTABLE CLINICAL HISTORY: 72 years-old Female presenting with cva. TECHNIQUE: AP view of the chest was obtained. COMPARISON: 11/19/2017. FINDINGS: Cardiomediastinal silhouette normal. Mildly low lung volumes. No focal opacity. No large effusion or pneumothorax. Osseous structures normal. Cholecystectomy clips noted. Multiple external leads project over the right hemithorax and abdomen degrading evaluation in these regions. IMPRESSION: 1. No acute cardiopulmonary disease. Electronically signed by: Kaleb Ramachandran M.D. 04/03/2018 7:22 AM Dictated Date/Time: 04/03/2018 7:21 AM
--- NOTE | 2018-04-03 09:06 | ECHOCARDIOGRAM REPORT ---
*NOTICE TO RECEIVING DEMOCRAT AGENCY This information is strictly Confidential and protected under [place] law. [place] law prohibits you from making any further disclosure of this information unless further disclosure is expressly permitted by the written consent of the person to whom it pertains or is authorized by law. A general authorization for the release of medical or other information is not sufficient for this purpose. Hospital accepts no responsibility if the information is made available to any other person, INCLUDING THE PATIENT. Interpretation Summary * Name: RANDEE AGUILAR Study Date: 04/03/2018 06:22 AM BP: 143/58 mmHg * [facility]\S\1 HR: 71 * : 1945 (M/d/yyyy) Gender: Female Height: 62 in * Age: 72 yrs Ethnicity: [place] Weight: 185 lb * Ordering Physician: Bj Gale * Referring Physician: Self, Referred * Performed By: Ni Oliva RCS * * Reason For Study: STROKE * BSA: 1.8 m2 * -- Conclusions -- * The left ventricle is normal in size. * There is borderline concentric left ventricular hypertrophy. * The left ventricular wall motion is normal. * Left ventricular systolic function is normal. * Ejection Fraction = 60-65%. * The mitral valve leaflets are mildly thickened * There is mild mitral regurgitation. * There is trace tricuspid regurgitation. * The interatrial septum is intact with no evidence for an atrial septal defect. * Injection of contrast documented no interatrial shunt. Procedure Details * A complete two-dimensional transthoracic echocardiogram was performed (2D, M-mode, Doppler and color flow Doppler). * A saline contrast injection was performed to assess for cardiac shunting. * The injection was performed through an intravenous line in the right arm. * The attending nurse who injected the saline contrast was MO WILSON, RN. * A total of 20 cc of agitated saline was given. Left Ventricle * The left ventricle is normal in size. * There is borderline concentric left ventricular hypertrophy. * Left ventricular systolic function is normal. * Ejection Fraction = 60-65%. * The left ventricular wall motion is normal. Right Ventricle * The right ventricle is normal in size and function. Atria * The left atrium is mildly dilated. * Right atrial size is normal. * The interatrial septum is intact with no evidence for an atrial septal defect. * Injection of contrast documented no interatrial shunt. Mitral Valve * The mitral valve leaflets are mildly thickened * There is no mitral valve stenosis. * There is mild mitral regurgitation. Tricuspid Valve * The tricuspid valve anatomy is normal. * There is no tricuspid stenosis. * There is trace tricuspid regurgitation. Aortic Valve * The aortic valve is trileaflet. * No hemodynamically significant valvular aortic stenosis. * No aortic regurgitation is present. Pulmonic Valve * The pulmonic valve is not well visualized. Great Vessels * The aortic root is normal size. Pericardium/Pleural * There is no pericardial effusion. Great Vessels * Normal inferior vena cava diameter and respiratory variation suggests normal central venous pressure. MMode 2D Measurements and Calculations IVSd 1.1 cm IVSs 1.7 cm LVIDd 4.1 cm LVIDs 2.7 cm LVPWd 1.2 cm LVPWs 1.4 cm IVS/LVPW 0.97 FS 33.6 % EDV(Teich) 73.3 ml ESV(Teich) 27.2 ml EF(Teich) 62.9 % EDV(cubed) 67.8 ml ESV(cubed) 19.8 ml EF(cubed) 70.8 % % IVS thick 46.3 % % LVPW thick 23.2 % LV mass(C)d 160.9 grams LV mass(C)dI 87.0 grams/m\S\2 LV mass(C)s 147.5 grams LV mass(C)sI 79.8 grams/m\S\2 SV(Teich) 46.1 ml SI(Teich) 24.9 ml/m\S\2 SV(cubed) 48.0 ml SI(cubed) 26.0 ml/m\S\2 Ao root diam 2.5 cm Ao root area 5.1 cm\S\2 LA dimension 3.5 cm LA/Ao 1.4 LVOT diam 1.9 cm LVOT area 2.7 cm\S\2 LVAd ap4 29.5 cm\S\2 LVLd ap4 7.0 cm EDV(MOD-sp4) 100.9 ml EDV(sp4-el) 105.0 ml LVAs ap4 21.2 cm\S\2 LVLs ap4 6.7 cm ESV(MOD-sp4) 55.8 ml ESV(sp4-el) 57.0 ml EF(MOD-sp4) 44.7 % EF(sp4-el) 45.7 % LVAd ap2 29.4 cm\S\2 LVLd ap2 7.1 cm EDV(MOD-sp2) 99.1 ml EDV(sp2-el) 102.4 ml LVAs ap2 19.6 cm\S\2 LVLs ap2 6.2 cm ESV(MOD-sp2) 49.8 ml ESV(sp2-el) 52.0 ml EF(MOD-sp2) 49.7 % EF(sp2-el) 49.3 % LVLd %diff 1.6 % EDV(MOD-bp) 101.2 ml LVLs %diff -7.46 % ESV(MOD-bp) 54.8 ml EF(MOD-bp) 45.9 % SV(MOD-sp4) 45.2 ml SI(MOD-sp4) 24.4 ml/m\S\2 SV(MOD-sp2) 49.2 ml SI(MOD-sp2) 26.6 ml/m\S\2 SV(MOD-bp) 46.4 ml SI(MOD-bp) 25.1 ml/m\S\2 SV(sp4-el) 47.9 ml SI(sp4-el) 25.9 ml/m\S\2 SV(sp2-el) 50.5 ml SI(sp2-el) 27.3 ml/m\S\2 Doppler Measurements and Calculations MV E max juan carlos 97.6 cm/sec MV A max juan carlos 76.6 cm/sec MV E/A 1.3 MV P1/2t max juan carlos 102.7 cm/sec MV P1/2t 107.6 msec MVA(P1/2t) 2.0 cm\S\2 MV dec slope 279.5 cm/sec\S\2 MV dec time 0.24 sec Ao V2 max 119.8 cm/sec Ao max PG 5.7 mmHg Ao max PG (full) 3.1 mmHg FARIDA(V,A) 1.8 cm\S\2 FARIDA(V,D) 1.8 cm\S\2 LV V1 max PG 2.6 mmHg LV V1 max 80.9 cm/sec MR max juan carlos 501.8 cm/sec MR max PG 100.7 mmHg TR max juan carlos 265.4 cm/sec
[2018-04-03] MEDS: MoRPHine SULFATE 4 MG/ML 1 ML CARP\\VIAL IV PRN ×2 (09:23→17:09)
--- NOTE | 2018-04-03 10:33 | DIAGNOSTIC IMAGING REPORT ---
CAROTID DOPPLER NECK ART CLINICAL HISTORY: 72 years-old Female presenting with stroke. TECHNIQUE: Real-time grayscale and color and spectral Doppler ultrasound imaging of the bilateral carotid arteries was performed. NASCET criteria was used in evaluating this study. COMPARISON: None. FINDINGS: Right: Common carotid: Atherosclerosis at the carotid bulb. Peak systolic velocity 85 cm/s. Internal carotid artery: Patent. Peak systolic velocity 74 cm/s. Systolic ratio: 0.9. External carotid artery: Patent. Peak systolic velocity 102 cm/s. Left: Common carotid: Atherosclerosis at the carotid bulb. Peak systolic velocity 71 cm/s. Internal carotid artery: Tortuous but patent. Peak systolic velocity 110 cm/s. Systolic ratio: 1.6. External carotid artery: Patent. Peak systolic velocity 85 cm/s. Bilateral antegrade flow within the vertebral arteries. Reference ranges: Stenosis measurements are compared to reference velocity parameters. Primary parameters: ICA peak systolic velocity (PSV) < 125 cm/s normal or indicating < 50% stenosis; ICA PSV 125-230 cm/s equivalent to 50-69% stenosis; ICA PSV > 230 cm/s equivalent to greater than or equal to 70% stenosis. Additional parameters: ICA PSV to common carotid artery PSV ratio < 2 normal or < 50% stenosis; 2-4 equates to 50-69% stenosis, > 4 equates to greater than or equal to 70% stenosis. Normal ICA end-diastolic velocity less than 40. Blood pressure: Not performed. IMPRESSION: Atherosclerosis without hemodynamically significant stenosis in the carotid arteries. Electronically signed by: Kaleb Ramachandran M.D. 04/03/2018 10:32 AM Dictated Date/Time: 04/03/2018 10:31 AM
--- NOTE | 2018-04-03 10:43 | DIAGNOSTIC IMAGING REPORT ---
BRAIN WITHOUT CONTRAST CLINICAL HISTORY: 72 years-old Female presenting with Stroke, left facial droop, favoring the left side, status post TPA on 04/02/2018 at 10:00 PM. TECHNIQUE: Multisequence, multiplanar MR imaging of the brain was performed without the use of intravenous contrast. IV contrast: None. COMPARISON: Noncontrast CT head from the previous day. FINDINGS: Ventricles and sulci normal in size. Restricted diffusion consistent with acute infarct in the right frontal lobe. There is associated T1 hypointensity and T2/FLAIR hyperintensity with sulcal effacement in this distribution. Additional acute lacunar infarct in the white matter of the left posterior frontal lobe (series 4 image 17). No mass effect or midline shift. No hemorrhage. No extra-axial fluid collection. T2 skull base flow voids preserved. Bilateral [place] lenses are absent. Bone marrow signal intensity within the calvarium within normal limits. IMPRESSION: 1. Acute infarct in the right frontal lobe. This is over 6 to 12 hours old by the presence of T2/FLAIR hyperintensity. No hemorrhagic conversion. 2. Acute lacunar infarct in the white matter of the left posterior frontal lobe. This additional finding could raise concern for emboli though this is considered less likely. Electronically signed by: Kaleb Ramachandran M.D. 04/03/2018 10:42 AM Dictated Date/Time: 04/03/2018 10:37 AM
--- NOTE | 2018-04-03 10:57 | DIAGNOSTIC IMAGING REPORT ---
MRA HEAD WITHOUT CONTRAST CLINICAL HISTORY: 72 years-old Female presenting with stroke, status post TPA yesterday at 04/02/2018 at 10pm, left facial droop, favoring left side. TECHNIQUE: MR angiography of the head was performed without the use of intravenous contrast using 3-D [id number] technique. 3-D volumetric and/or maximum intensity projection (MIP) images were subsequently reconstructed for review. IV contrast: None. COMPARISON: None. FINDINGS: Anterior circulation: Intracranial portions of the internal carotid arteries patent to the level of the termini. Anterior and middle cerebral arteries patent. Anterior communicating artery patent. Posterior circulation: Codominant vertebral arteries. Intradural portions of the vertebral arteries patent. Posterior inferior cerebellar arteries patent. Basilar artery patent. Anterior inferior cerebellar arteries poorly visualized. Superior cerebellar and posterior cerebral arteries patent. Posterior communicating artery patent on the left and hypoplastic or aplastic on the right. IMPRESSION: 1. No significant stenosis, aneurysm, or focal vessel occlusion. Electronically signed by: Kaleb Ramachandran M.D. 04/03/2018 10:55 AM Dictated Date/Time: 04/03/2018 10:51 AM
--- NOTE | 2018-04-03 13:27 | PROGRESS NOTE ---
DATE: 04/03/2018 Carmela is a 72-year-old patient of Dr. Alonso Barth. I have seen her for the last 30 years regarding chronic migraine headaches which to some degree are present every day but will go through phases of time when they are more persistent and she has actually had several weeks out of increased headache resistant, so far, the steroids which we gave her I believe about 10-14 days ago. She has a number of other issues but from medical point of view, she is pretty free of illnesses. She is mildly hypothyroid. She has some hypertension. She has some dyslipidemia and takes levothyroxine, atenolol and Zocor for those. In terms of migraine therapy, we have had her on Seroquel which is about the only agent that ever has reduced the frequency and severity of these headaches despite trials of multiple agents over the years and she takes butalbital fairly frequently unfortunately. She has been taking one baby aspirin a day for years because of family history of stroke. In this setting, she presented with the acute onset of slurred speech, left facial asymmetry and some preferential gaze to the right, onset yesterday, was brought to the hospital, was evaluated for TPA, received the agent as per the [place] protocol and is now in the ICU in an improved condition. She feels this is not much wrong. Her agrees. Her speech is clear. There may be a slight left upper motor neuron facial paresis and there still may be an issue with visual neglect but otherwise she is essentially back to her baseline. She still has a low-grade headache but there have been no other issues and cardiac monitoring has shown no atrial fibrillation. IMAGING STUDIES: Initially showed nothing on the CT and now the MRI does show evidence for a right posterior parietal cortical infarct without hemorrhage that I can see, although the official x-ray report is still pending and the MRA shows no significant acute vessel cutoffs. FAMILY HISTORY: As noted above is positive for stroke and heart disease. 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 REVIEW OF SYSTEMS: Reveals stable weight, mild chronic over nourishment, chronic headaches, she has never had migrainous auras to my recall and headaches have been simple uncomplicated migraines. There is no significant hearing loss or baseline visual disturbance; no cardiovascular, pulmonary, gastrointestinal, genitourinary issues other than hypertension and hypothyroidism. From neurologic point of view, she has never really had anything other than the migraine headaches. PHYSICAL EXAMINATION: VITAL SIGNS: Her blood pressure on presentation 170/64, pulse was 71, respirations were 17, she was afebrile. GENERAL: She was moderately over nourished, she was slightly anxious. She was in no clear distress otherwise. HEENT: Normal. LUNGS: Clear. HEART: Had a regular rhythm without murmurs. ABDOMEN: Soft, nontender. EXTREMITIES: Free of edema. NEUROLOGIC: Today she is awake, alert, oriented in 3 spheres. Speech is clear and baseline for me. There is no word finding deficits. She has very mild left upper motor neuron facial asymmetry. There may be a slight tendency to preferentially gaze to the right and on presentation of visual stimuli she does neglect the left-sided presentation 2/3 times. There may also be a slight left upper quadrantic field cut, which is inconsistent. Otherwise, facial sensation is normal. Eye movements are normal. Tongue protrudes in the midline. There is no drift, pronation sign, tremor, tics or choreiform activity. Reflexes are all 1+ symmetrical. Toes are downgoing. No Travis signs were seen. Muscle strength testing is normal and sensation is intact. At present, we do not have any clear evidence for an intracranial or extracranial carotid or middle cerebral artery stenosis or acute vessel cutoff. It is possible that there was a clot and the TPA dissolved it or at least resulted in clot lysis making the image now normal but in this setting it was a completed stroke, there is no obvious intracranial stenoses or extracranial carotid disease, so I think we really need to go for a cardiogenic source of embolism and a workup with an echo, perhaps a transesophageal echo and possibly outpatient Zio patch monitoring for atrial fibrillation if we do not warehouse picker a rhythm here. She can start antiplatelet drugs, I believe, per protocol tomorrow morning and I would add Plavix to her aspirin at that point and continue it until we get the workup completed. I am going to go, review her reports and studies in a little more detail later once the official readings and images are back on the chart and I will check with her tomorrow. JCARLOS
--- NOTE | 2018-04-03 14:06 | Progress Note ---
Medicine Progress Note Date & Time of Visit: April 03, 2018 at 13:49. Subjective seen resting in bed, comfortable family at bedside states she feels better overall- speaking better, no problems with swallowing denies any weakness or numbness, paresthesias mild headache, no dizziness denies bleeding no other symptoms Objective Last 8 Hrs Date Time Temp Pulse Resp B/P (MAP) Pulse Ox O2 Delivery O2 Flow Rate FiO2 04/03/18 12:30 36.9 68 20 133/81 (98) 94 Room Air 04/03/18 12:00 Room Air 04/03/18 11:30 72 20 151/74 (99) 93 Room Air 04/03/18 10:29 74 16 132/66 (88) 93 Room Air 04/03/18 09:24 77 18 166/72 (103) 95 Room Air 04/03/18 08:30 36.7 74 21 147/87 (107) 96 Room Air 04/03/18 08:00 Room Air 04/03/18 07:30 37.0 74 18 144/63 (90) 92 Room Air 04/03/18 06:30 71 22 151/64 (93) 94 04/03/18 06:00 76 16 151/63 (92) 95 Physical Exam: General- oriented x 3, not in distress, speaks in sentences with no effort Head- atraumatic Eyes-anicteric Neck- no adenopathy Lungs- clear to auscultation bilaterally Heart- regular rhythm; no murmur, normal rate Abdomen- normal bowel sounds, soft, nontender Extremities- no pretibial edema, no calf tenderness; peripheral pulses intact Neuro- alert, oriented x 3; cn 2-12 grossly intact motor strength 5/5 on all ext sensation 5/5 on all ext Skin- warm & dry Laboratory Results: Last 24 Hours Test 04/02/18 21:02 04/02/18 23:31 04/03/18 04:06 04/03/18 04:08 White Blood Count 7.58 K/uL 8.07 K/uL Red Blood Count 4.36 M/uL 4.14 M/uL Hemoglobin 13.9 g/dL 13.0 g/dL Hematocrit 40.4 % 38.6 % Mean Corpuscular Volume 92.7 fL 93.2 fL Mean Corpuscular Hemoglobin 31.9 pg 31.4 pg Mean Corpuscular Hemoglobin Concent 34.4 g/dl 33.7 g/dl Platelet Count 265 K/uL 238 K/uL Mean Platelet Volume 10.1 fL 9.9 fL Neutrophils (%) (Auto) 44.6 % 60.0 % Lymphocytes (%) (Auto) 33.6 % 25.2 % Monocytes (%) (Auto) 11.1 % 8.4 % Eosinophils (%) (Auto) 9.5 % 5.6 % Basophils (%) (Auto) 1.1 % 0.6 % Neutrophils # (Auto) 3.38 K/uL 4.84 K/uL Lymphocytes # (Auto) 2.55 K/uL 2.03 K/uL Monocytes # (Auto) 0.84 K/uL 0.68 K/uL Eosinophils # (Auto) 0.72 K/uL 0.45 K/uL Basophils # (Auto) 0.08 K/uL 0.05 K/uL RDW Standard Deviation 47.4 fL 48.2 fL RDW Coefficient of Variation 14.0 % 14.1 % Immature Granulocyte % (Auto) 0.1 % 0.2 % Immature Granulocyte # (Auto) 0.01 K/uL 0.02 K/uL Prothrombin Time 9.6 SECONDS Prothromb Time International Ratio 0.9 Activated Partial Thromboplast Time 24.5 SECONDS Partial Thromboplastin Ratio 0.9 Sodium Level 141 mmol/L 140 mmol/L Potassium Level 3.6 mmol/L 3.7 mmol/L Chloride Level 106 mmol/L 109 mmol/L Carbon Dioxide Level 30 mmol/L 26 mmol/L Anion Gap 5.0 mmol/L 5.0 mmol/L Blood Urea Nitrogen 14 mg/dl 14 mg/dl Creatinine 0.87 mg/dl 0.74 mg/dl Est Creatinine Clear Calc Drug Dose 57.9 ml/min 66.7 ml/min Estimated GFR () 76.6 93.2 Estimated GFR (Non- 66.1 80.4 BUN/Creatinine Ratio 16.6 19.1 Random Glucose 95 mg/dl 105 mg/dl Calcium Level 8.4 mg/dl 8.6 mg/dl Magnesium Level 2.0 mg/dl 1.9 mg/dl Total Bilirubin 0.3 mg/dl Aspartate Amino Transf (AST/SGOT) 36 U/L Alanine Aminotransferase (ALT/SGPT) 35 U/L Alkaline Phosphatase 92 U/L Total Protein 8.0 gm/dl Albumin 3.9 gm/dl Globulin 4.1 gm/dl Albumin/Globulin Ratio 0.9 Thyroid Stimulating Hormone (TSH) 4.190 uIu/ml Chemistry Specimen Hemolysis Urine Color YELLOW Urine Appearance CLOUDY Urine pH 5.0 Urine Specific [place] 1.026 Urine Protein TRACE Urine Glucose (UA) NEG Urine Ketones NEG Urine Occult Blood TRACE Urine Nitrite NEG Urine Bilirubin NEG Urine Urobilinogen NEG Urine Leukocyte Esterase TRACE Urine WBC (Auto) 1-5 /hpf Urine RBC (Auto) 5-10 /hpf Urine Hyaline Casts (Auto) 1-5 /lpf Urine Epithelial Cells (Auto) >30 /lpf Urine Bacteria (Auto) NEG Urine Crystals Phosphorus Level 3.9 mg/dl Triglycerides Level 100 mg/dl Cholesterol Level 162 mg/dl HDL Cholesterol 62 mg/dl LDL Cholesterol, Calculated 80 mg/dl VLDL Cholesterol, Calculated 20 mg/dl Cholesterol/HDL Ratio 2.6 Free Thyroxine 0.80 ng/dl Bedside Glucose 107 mg/dl Test 04/03/18 11:32 Bedside Glucose 105 mg/dl Date/Time Source Procedure Growth Status 04/03/18 00:01 Nasal MRSA DNA Surveillance Screen - Final Specimen Negative for MRSA by DNA Probe Complete Assessment & Plan 1. Acute CVA Bilateral Frontal Lobe Infarct -- s/p TPA 04/02/18 900pm -- Brain MRI: acute bilateral frontal lobe infarct Head MRA: no stenosis Echo: ASD -- symptoms seems to have resolved -- Neurology consulted Dr. Saini monitor for arrhythmia may need outpatient cardiac monitoring -- was already taking ASA possible start ASA and add Plavix tomorrow per post TPA protocol -- main BP on the higher side but below syst 170 -- pt/ot in progress 2. Hypertensive urgency 2 to above. -- main BP on the higher side but below syst 170 3. Hyperlipidemia on statin therapy. -- Simva 40mg daily 4. Chronic migraine. 5. GERD sp surgery DVT prophylaxis SCDs for now Dispo PT/OT ordered Current Inpatient Medications: Current Inpatient Medications Medications (Trade) Dose Ordered Sig/Priyanka Route Start Time Stop Time Status Last Admin Dose Admin Acetaminophen (Tylenol Tab) 650 mg Q4H PRN PO 04/02/18 23:30 05/02/18 23:29 Lorazepam (Ativan Inj) 0.25 mg Q4H PRN IV 04/02/18 23:30 05/02/18 23:29 Nitroglycerin (Nitrostat Tab) 0.4 mg UD PRN SL 04/02/18 23:30 05/02/18 23:29 Miscellaneous Information (Icu Protocol For Hyperglycemia) 1 ea PRN PRN N/A 04/02/18 23:30 04/04/18 23:29 Miscellaneous Information (Pharmacist Discharge Med Rec Consult) 1 ea UD PRN N/A 04/02/18 23:30 05/02/18 23:29 Quetiapine Fumarate (seroQUEL TAB) 25 mg HS PO 04/03/18 21:00 05/03/18 20:59 Simvastatin (Zocor Tab) 40 mg QPM PO 04/03/18 21:00 05/03/18 20:59 Tramadol HCl (Ultram Tab) 25 mg Q6H PRN PO 04/02/18 23:30 05/02/18 23:29 Prochlorperazine Edisylate 5 mg/ Syringe 5 ml @ 5 mls/min Q6H PRN IV 04/02/18 23:30 05/02/18 23:29 Morphine Sulfate (MoRPHine SULFATE INJ) 2 mg Q4H PRN IV 04/02/18 23:30 04/16/18 23:29 04/03/18 09:23 2 MG Lactated Ringer's 1,000 ml @ 75 mls/hr [id number] ONCE IV 04/03/18 01:00 04/03/18 14:19 04/03/18 00:48 75 MLS/HR Pantoprazole Sodium (Protonix Tab) 40 mg QAM PO 04/03/18 09:00 05/03/18 08:59
[2018-04-03] MEDS: PANTOprazole SOD 40 MG TAB PO SCH (14:09)
--- NOTE | 2018-04-03 17:04 | Critical Care Progress Note ---
Critical Care Progress Note Date of Service April 03, 2018. ICU Day ICU Day Number: [address] Espinal Subjective Follow-up note. Patient is doing well and most neurological symptoms have resolved. She continues with a minimal facial droop. No active bleeding. No gingival bleeding. She does report a small amount of epistaxis this morning but on exam there is no evidence of dried blood in the nares or in the posterior oropharynx. MRI / MRA was completed this morning with no evidence of hemorrhagic transformation. Patient was also seen by Dr. Saini who will follow -up again tomorrow morning. Discussion with patient, , daughter, son-in-law. Patient has no acute complaints. Discussion with Dr. Saini from Neurology ECHOCARDIOGRAM IMPRESSION: Interpretation Summary * Name: RANDEE AGUILAR Study Date: 04/03/2018 06:22 AM BP: 143/58 mmHg * [facility] HR: 71 * : 1945 (M/d/yyyy) Gender: Female Height: 62 in * Age: 72 yrs Ethnicity: [place] Weight: 185 lb * Ordering Physician: Bj Gale * Referring Physician: Self, Referred * Performed By: Ni Oliva RCS * * Reason For Study: STROKE * BSA: 1.8 m2 * -- Conclusions -- * The left ventricle is normal in size. * There is borderline concentric left ventricular hypertrophy. * The left ventricular wall motion is normal. * Left ventricular systolic function is normal. * Ejection Fraction = 60-65%. * The mitral valve leaflets are mildly thickened * There is mild mitral regurgitation. * There is trace tricuspid regurgitation. * The interatrial septum is intact with no evidence for an atrial septal defect. * Injection of contrast documented no interatrial shunt. Objective GENERAL : No acute distress. Pleasant EYES: No icterus, gaze conjugate NOSE: No evidence of epistaxis MOUTH: No lesions or candidiasis. Slight facial droop on the left NECK: Supple LUNGS: CTA B/L, no wheezes, rales or rhonchi HEART: Regular, rate controlled ABDOMEN: Soft, NT, ND, BS Present EXTREMITIES: No LE edema, pedal pulses intact NEURO: A&OX3. Pupils equal and reactive to light. Gaze is conjugate. No evidence of nystagmus. No slurred speech. No aphasia or difficulty with word finding. Short-term and long-term memory seem to be intact. Assessment & Plan Acute RIGHT FRONTAL CVA * MRI impression * 1. Acute infarct in the right frontal lobe. This is over 6 to 12 hours old by the presence of T2/FLAIR hyperintensity. No hemorrhagic conversion. * 2. Acute lacunar infarct in the white matter of the left posterior frontallobe. This additional finding could raise concern for emboli though this is considered less likely. * MRA impression * 1. No significant stenosis, aneurysm, or focal vessel occlusion. * TPA administered 04/02/2018 at 21:58 * Begin TPA day #2 protocol 04/03/2018 at 22:00 * No evidence of thrombus on echocardiogram * Neurology consulted -appreciate Dr. Saini's input * Okay to give Plavix and aspirin starting tomorrow morning * Neurology will see the patient again tomorrow morning * Patient currently follows with Dr. Saini for migraines -continue outpatient follow-up DVT PROPHYLAXIS * Patient received TPA yesterday evening * No further chemical prophylaxis * Teds/SCDs * Increase ambulation as tolerated by patient in accordance with physical therapy guidelines Please refer to Aleksandr Olson PA-C daily progress note for full critical care assessment and plan CCT: 35 minutes including discussion with family, chart review, discussion with other providers. [id number] Consults & Procedures Consultants: Neurology -Dr. Saini Procedures: Administer tPA 04/02/2018 MRI/MRA 04/03/2018 Echocardiogram 04/03/2018 Data Medications: Current Inpatient Medications Medications (Trade) Dose Ordered Sig/Priyanka Route Start Time Stop Time Status Last Admin Dose Admin Acetaminophen (Tylenol Tab) 650 mg Q4H PRN PO 04/02/18 23:30 05/02/18 23:29 Lorazepam (Ativan Inj) 0.25 mg Q4H PRN IV 04/02/18 23:30 05/02/18 23:29 Nitroglycerin (Nitrostat Tab) 0.4 mg UD PRN SL 04/02/18 23:30 05/02/18 23:29 Miscellaneous Information (Icu Protocol For Hyperglycemia) 1 ea PRN PRN N/A 04/02/18 23:30 04/04/18 23:29 Miscellaneous Information (Pharmacist Discharge Med Rec Consult) 1 ea UD PRN N/A 04/02/18 23:30 05/02/18 23:29 Quetiapine Fumarate (seroQUEL TAB) 25 mg HS PO 04/03/18 21:00 05/03/18 20:59 Simvastatin (Zocor Tab) 40 mg QPM PO 04/03/18 21:00 05/03/18 20:59 Tramadol HCl (Ultram Tab) 25 mg Q6H PRN PO 04/02/18 23:30 05/02/18 23:29 Prochlorperazine Edisylate 5 mg/ Syringe 5 ml @ 5 mls/min Q6H PRN IV 04/02/18 23:30 05/02/18 23:29 Morphine Sulfate (MoRPHine SULFATE INJ) 2 mg Q4H PRN IV 04/02/18 23:30 04/16/18 23:29 04/03/18 09:23 2 MG Pantoprazole Sodium (Protonix Tab) 40 mg QAM PO 04/03/18 09:00 05/03/18 08:59 04/03/18 14:09 40 MG I & O: 24-Hour Column 04/04/18 08:00 Intake Total 975 ml Output Total 500 ml Balance 475 ml Vital Signs: Date Time Temp Pulse Resp B/P (MAP) Pulse Ox O2 Delivery O2 Flow Rate FiO2 04/03/18 16:00 Room Air 04/03/18 15:30 77 14 148/60 (89) 95 Room Air 04/03/18 14:34 79 18 135/64 (87) 95 Room Air 04/03/18 13:30 67 14 140/65 (90) 93 Room Air 04/03/18 12:30 36.9 68 20 133/81 (98) 94 Room Air 04/03/18 12:00 Room Air 04/03/18 11:30 72 20 151/74 (99) 93 Room Air 04/03/18 10:29 74 16 132/66 (88) 93 Room Air 04/03/18 09:24 77 18 166/72 (103) 95 Room Air 04/03/18 08:30 36.7 74 21 147/87 (107) 96 Room Air 04/03/18 08:00 Room Air 04/03/18 07:30 37.0 74 18 144/63 (90) 92 Room Air 04/03/18 06:30 71 22 151/64 (93) 94 04/03/18 06:00 76 16 151/63 (92) 95 04/03/18 05:30 73 18 143/69 (93) 94 04/03/18 05:00 73 18 143/58 (86) 92 04/03/18 04:31 72 19 146/58 (87) 94 Room Air 04/03/18 04:01 37.1 77 22 146/73 (97) 96 Room Air 04/03/18 04:00 96 Room Air 04/03/18 03:33 75 28 176/89 (118) 96 Room Air 04/03/18 03:01 72 16 148/60 (89) 95 Room Air 04/03/18 02:30 70 16 151/72 (98) 96 Room Air 04/03/18 02:00 68 19 164/61 (95) 95 Room Air 04/03/18 01:30 75 17 164/61 (95) 97 Room Air 04/03/18 01:02 76 21 159/64 (95) 97 04/03/18 00:45 70 16 107/73 (84) 98 04/03/18 00:31 70 21 147/66 (93) 98 04/03/18 00:16 68 19 143/75 (97) 96 04/03/18 00:02 37.4 70 20 87/66 (73) 98 Room Air 04/02/18 23:59 96 Room Air 18 23:43 68 18 141/70 96 Room Air 18 23:43 68 18 141/70 96 Room Air 18 23:22 72 17 134/61 96 Room Air 518 23:15 71 18 96 Room Air 518 23:07 70 17 170/64 95 Room Air 518 23:01 71 17 170/64 96 Room Air 18 22:45 72 17 137/92 95 Room Air 518 22:37 75 18 96 5/18 22:34 73 18 130/63 97 Room Air 18 22:34 130/63 5/18 22:27 79 18 97 518 22:24 154/58 518 22:17 74 17 96 5/18 22:15 74 17 119/87 97 Room Air 04/02/18 22:14 119/87 04/02/18 22:14 74 17 119/87 96 Room Air 04/02/18 22:07 72 16 97 04/02/18 22:02 77 17 155/67 96 Room Air 04/02/18 22:02 155/67 04/02/18 21:55 84 17 97 04/02/18 21:54 174/55 04/02/18 21:54 96 Room Air 04/02/18 21:51 188/70 04/02/18 21:45 81 20 98 04/02/18 21:40 191/104 04/02/18 21:36 81 24 96 04/02/18 21:31 163/121 04/02/18 21:26 85 26 04/02/18 21:20 177/77 04/02/18 21:18 175/92 04/02/18 21:16 75 21 96 04/02/18 21:10 79 04/02/18 21:06 18 97 Room Air 04/02/18 21:06 89 25 97 04/02/18 21:01 142/93 04/02/18 20:50 37.3 93 18 142/93 98 Room Air Laboratory Results: Last 24 Hours Test 04/02/18 21:02 04/02/18 23:31 04/03/18 04:06 04/03/18 04:08 White Blood Count 7.58 K/uL 8.07 K/uL Red Blood Count 4.36 M/uL 4.14 M/uL Hemoglobin 13.9 g/dL 13.0 g/dL Hematocrit 40.4 % 38.6 % Mean Corpuscular Volume 92.7 fL 93.2 fL Mean Corpuscular Hemoglobin 31.9 pg 31.4 pg Mean Corpuscular Hemoglobin Concent 34.4 g/dl 33.7 g/dl Platelet Count 265 K/uL 238 K/uL Mean Platelet Volume 10.1 fL 9.9 fL Neutrophils (%) (Auto) 44.6 % 60.0 % Lymphocytes (%) (Auto) 33.6 % 25.2 % Monocytes (%) (Auto) 11.1 % 8.4 % Eosinophils (%) (Auto) 9.5 % 5.6 % Basophils (%) (Auto) 1.1 % 0.6 % Neutrophils # (Auto) 3.38 K/uL 4.84 K/uL Lymphocytes # (Auto) 2.55 K/uL 2.03 K/uL Monocytes # (Auto) 0.84 K/uL 0.68 K/uL Eosinophils # (Auto) 0.72 K/uL 0.45 K/uL Basophils # (Auto) 0.08 K/uL 0.05 K/uL RDW Standard Deviation 47.4 fL 48.2 fL RDW Coefficient of Variation 14.0 % 14.1 % Immature Granulocyte % (Auto) 0.1 % 0.2 % Immature Granulocyte # (Auto) 0.01 K/uL 0.02 K/uL Prothrombin Time 9.6 SECONDS Prothromb Time International Ratio 0.9 Activated Partial Thromboplast Time 24.5 SECONDS Partial Thromboplastin Ratio 0.9 Sodium Level 141 mmol/L 140 mmol/L Potassium Level 3.6 mmol/L 3.7 mmol/L Chloride Level 106 mmol/L 109 mmol/L Carbon Dioxide Level 30 mmol/L 26 mmol/L Anion Gap 5.0 mmol/L 5.0 mmol/L Blood Urea Nitrogen 14 mg/dl 14 mg/dl Creatinine 0.87 mg/dl 0.74 mg/dl Est Creatinine Clear Calc Drug Dose 57.9 ml/min 66.7 ml/min Estimated GFR () 76.6 93.2 Estimated GFR (Non- 66.1 80.4 BUN/Creatinine Ratio 16.6 19.1 Random Glucose 95 mg/dl 105 mg/dl Calcium Level 8.4 mg/dl 8.6 mg/dl Magnesium Level 2.0 mg/dl 1.9 mg/dl Total Bilirubin 0.3 mg/dl Aspartate Amino Transf (AST/SGOT) 36 U/L Alanine Aminotransferase (ALT/SGPT) 35 U/L Alkaline Phosphatase 92 U/L Total Protein 8.0 gm/dl Albumin 3.9 gm/dl Globulin 4.1 gm/dl Albumin/Globulin Ratio 0.9 Thyroid Stimulating Hormone (TSH) 4.190 uIu/ml Chemistry Specimen Hemolysis Urine Color YELLOW Urine Appearance CLOUDY Urine pH 5.0 Urine Specific [place] 1.026 Urine Protein TRACE Urine Glucose (UA) NEG Urine Ketones NEG Urine Occult Blood TRACE Urine Nitrite NEG Urine Bilirubin NEG Urine Urobilinogen NEG Urine Leukocyte Esterase TRACE Urine WBC (Auto) 1-5 /hpf Urine RBC (Auto) 5-10 /hpf Urine Hyaline Casts (Auto) 1-5 /lpf Urine Epithelial Cells (Auto) >30 /lpf Urine Bacteria (Auto) NEG Urine Crystals Phosphorus Level 3.9 mg/dl Triglycerides Level 100 mg/dl Cholesterol Level 162 mg/dl HDL Cholesterol 62 mg/dl LDL Cholesterol, Calculated 80 mg/dl VLDL Cholesterol, Calculated 20 mg/dl Cholesterol/HDL Ratio 2.6 Free Thyroxine 0.80 ng/dl Bedside Glucose 107 mg/dl Test 04/03/18 11:32 04/03/18 16:21 Bedside Glucose 105 mg/dl 93 mg/dl
[2018-04-03] MEDS ORDERED: MoRPHine SULFATE 4 MG/ML 1 ML CARP\\VIAL IV PRN (17:15)
[2018-04-03] MEDS ORDERED: TRAMADOL HCL 50 MG TAB PO PRN (17:15)
[2018-04-03] MEDS: QUETIAPINE FUMARATE 25 MG TAB PO SCH (19:45)
[2018-04-03] MEDS: SIMVASTATIN 40 MG TAB PO SCH (19:46)
[2018-04-03] MEDS ORDERED: SIMVASTATIN 40 MG TAB PO SCH (21:00)
--- NOTE | 2018-04-03 22:51 | DIAGNOSTIC IMAGING REPORT ---
HEAD WITHOUT CONTRAST (CT) CLINICAL HISTORY: 72 years-old Female presenting with S/P t-PA for Stroke. Evaluate hemorrhage. TECHNIQUE: Multidetector CT imaging of the head was performed without the use of intravenous contrast. IV contrast: None. A dose lowering technique was used consistent with the principles of ALARA (as low as reasonably achievable). COMPARISON: 04/02/2018. CT DOSE (mGy.cm): The estimated cumulative dose is 623.48 mGy.cm. FINDINGS: Embedded Firmware Engineer topogram: Unremarkable. Ventricles and sulci normal in size. Hypodensity in the right frontal lobe, which is decreased in density since prior. Regional sulcal effacement. Heterogeneity of attenuation though no convincing evidence of hemorrhagic transformation. No mass effect or midline shift. No hemorrhage or acute territorial infarct. No extra-axial fluid collection. Paranasal sinuses and mastoid air cells clear. Calvarium intact. IMPRESSION: 1. Interval evolution of the right frontal lobe acute to subacute infarct. Heterogeneity of attenuation without aleksandar evidence of hemorrhagic transformation. Given the presence of heterogeneity is slightly atypical. Consider re-imaging in 12 to 24 hours. Electronically signed by: Kaleb Ramachandran M.D. 04/03/2018 10:50 PM Dictated Date/Time: 04/03/2018 10:46 PM
[2018-04-04] VITALS (16 sets, daily range): BP systolic 115–159; BP diastolic 50–78; PULSE 58–89; TEMP 36.5–37.2; O2SAT 89–99
[2018-04-04 04:43] LABS: BASO % 0.6 %; BASO ABS # 0.04 K/uL (0-0.2); EOS % 10.8 %; EOS ABS # 0.68 K/uL (0-0.5); HEMATOCRIT 39.8 % (37-47); HEMOGLOBIN 13.7 g/dL (12.0-16.0); IG# 0.01 K/uL (0.00-0.02); LYMPH % 27.7 %; LYMPH ABS # 1.75 K/uL (1.2-3.4); MEAN CELL VOLUME 92.8 fL (80-100); MEAN CORPUSCULAR HEMOGLOBIN 31.9 pg (25-34); MEAN CORPUSCULAR HGB CONC 34.4 g/dl (32-36); MEAN PLATELET VOLUME 9.6 fL (7.4-10.4); MONO ABS # 0.76 K/uL (0.11-0.59); NEUT % 48.7 %; NEUT ABS # 3.07 K/uL (1.4-6.5); PLATELET COUNT 209 K/uL (130-400); RED CELL DISTRIBUTION WIDTH SD 47.3 fL (36.4-46.3); WHITE BLOOD COUNT 6.31 K/uL (4.8-10.8)
[2018-04-04 05:18] LABS: ALBUMIN 3.5 gm/dl (3.4-5.0); CALCIUM 8.7 mg/dl (8.5-10.1); CREATININE 0.74 mg/dl (0.60-1.20); PHOSPHORUS 3.8 mg/dl (2.5-4.9); POTASSIUM 3.5 mmol/L (3.5-5.1); TOTAL PROTEIN 7.1 gm/dl (6.4-8.2)
--- NOTE | 2018-04-04 08:43 | Progress Note ---
Medicine Progress Note Date & Time of Visit: April 04, 2018 at 08:43. Subjective seen resting in bed, comfortable in good spirits states her symptoms have resolved speech back to baseline, no problems with swallowing no other new focal deficits has mild posterior headache denies other symptoms Objective Last 8 Hrs Date Time Temp Pulse Resp B/P (MAP) Pulse Ox O2 Delivery O2 Flow Rate FiO2 04/04/18 08:01 36.9 89 17 159/68 (98) 94 Room Air 04/04/18 07:00 76 18 153/69 (97) 91 Room Air 04/04/18 06:00 77 17 130/78 (95) 90 04/04/18 04:09 95 Room Air 04/04/18 04:00 37.2 70 16 124/63 (83) 94 Room Air 04/04/18 03:00 70 17 124/54 (77) 89 04/04/18 02:00 71 15 119/63 (81) 89 04/04/18 01:00 72 15 115/56 (75) 90 Physical Exam: General- oriented x 3, not in distress, speaks in sentences with no effort Head- atraumatic Eyes-anicteric Neck- no adenopathy Lungs- clear to auscultation bilaterally Heart- regular rhythm; no murmur, normal rate Abdomen- normal bowel sounds, soft, nontender Extremities- no pretibial edema, no calf tenderness; peripheral pulses intact Neuro- alert, oriented x 3; cn 2-12 grossly intact motor strength 5/5 on all ext sensation 5/5 on all ext Skin- warm & dry Laboratory Results: Last 24 Hours Test 04/03/18 11:32 04/03/18 16:21 04/04/18 04:29 Bedside Glucose 105 mg/dl 93 mg/dl White Blood Count 6.31 K/uL Red Blood Count 4.29 M/uL Hemoglobin 13.7 g/dL Hematocrit 39.8 % Mean Corpuscular Volume 92.8 fL Mean Corpuscular Hemoglobin 31.9 pg Mean Corpuscular Hemoglobin Concent 34.4 g/dl Platelet Count 209 K/uL Mean Platelet Volume 9.6 fL Neutrophils (%) (Auto) 48.7 % Lymphocytes (%) (Auto) 27.7 % Monocytes (%) (Auto) 12.0 % Eosinophils (%) (Auto) 10.8 % Basophils (%) (Auto) 0.6 % Neutrophils # (Auto) 3.07 K/uL Lymphocytes # (Auto) 1.75 K/uL Monocytes # (Auto) 0.76 K/uL Eosinophils # (Auto) 0.68 K/uL Basophils # (Auto) 0.04 K/uL RDW Standard Deviation 47.3 fL RDW Coefficient of Variation 14.0 % Immature Granulocyte % (Auto) 0.2 % Immature Granulocyte # (Auto) 0.01 K/uL Sodium Level 140 mmol/L Potassium Level 3.5 mmol/L Chloride Level 108 mmol/L Carbon Dioxide Level 27 mmol/L Anion Gap 5.0 mmol/L Blood Urea Nitrogen 7 mg/dl Creatinine 0.74 mg/dl Est Creatinine Clear Calc Drug Dose 66.7 ml/min Estimated GFR () 93.2 Estimated GFR (Non- 80.4 BUN/Creatinine Ratio 9.6 Random Glucose 91 mg/dl Calcium Level 8.7 mg/dl Phosphorus Level 3.8 mg/dl Magnesium Level 2.0 mg/dl Total Bilirubin 0.4 mg/dl Direct Bilirubin 0.1 mg/dl Aspartate Amino Transf (AST/SGOT) 23 U/L Alanine Aminotransferase (ALT/SGPT) 25 U/L Alkaline Phosphatase 78 U/L Total Protein 7.1 gm/dl Albumin 3.5 gm/dl Assessment & Plan 1. Acute CVA Bilateral Frontal Lobe Infarct -- s/p TPA 04/02/18 900pm -- Brain MRI: acute bilateral frontal lobe infarct Head MRA: no stenosis Echo: no ASD repeat CT head s/p TPA: no hemorrhagic conversion -- symptoms seems to have resolved -- Neurology consulted Dr. Saini monitor for arrhythmia may need outpatient cardiac monitoring -- was already taking ASA Plavix addded Simva increased to 40mg BID -- maintain BP on the higher side but below syst 170 resume Atenolol with reduced dose monitor BP -- pt/ot in progress 2. Hypertensive urgency 2 to above. -- main BP on the higher side but below syst 170 3. Hyperlipidemia on statin therapy. -- Simva 40mg BID 4. Chronic migraine. -- (+) headaches today Fioricet ordered 5. GERD sp surgery DVT prophylaxis SCDs for now Dispo pending usually lives at home with family Current Inpatient Medications: Current Inpatient Medications Medications (Trade) Dose Ordered Sig/Priyanka Route Start Time Stop Time Status Last Admin Dose Admin Acetaminophen (Tylenol Tab) 650 mg Q4H PRN PO 04/02/18 23:30 05/02/18 23:29 Lorazepam (Ativan Inj) 0.25 mg Q4H PRN IV 04/02/18 23:30 05/02/18 23:29 Nitroglycerin (Nitrostat Tab) 0.4 mg UD PRN SL 04/02/18 23:30 05/02/18 23:29 Miscellaneous Information (Icu Protocol For Hyperglycemia) 1 ea PRN PRN N/A 04/02/18 23:30 04/04/18 23:29 Miscellaneous Information (Pharmacist Discharge Med Rec Consult) 1 ea UD PRN N/A 04/02/18 23:30 05/02/18 23:29 Quetiapine Fumarate (seroQUEL TAB) 25 mg HS PO 04/03/18 21:00 05/03/18 20:59 04/03/18 19:45 25 MG Simvastatin (Zocor Tab) 40 mg QPM PO 04/03/18 21:00 05/03/18 20:59 04/03/18 19:46 40 MG Tramadol HCl (Ultram Tab) 25 mg Q6H PRN PO 04/02/18 23:30 05/02/18 23:29 Prochlorperazine Edisylate 5 mg/ Syringe 5 ml @ 5 mls/min Q6H PRN IV 04/02/18 23:30 05/02/18 23:29 Pantoprazole Sodium (Protonix Tab) 40 mg QAM PO 04/03/18 09:00 05/03/18 08:59 04/03/18 14:09 40 MG Simvastatin (Zocor Tab) 40 mg PM PO 04/03/18 21:00 05/03/18 20:59 04/03/18 19:46 40 MG Aspirin (Ecotrin Tab) 81 mg QAM PO 04/04/18 09:00 05/04/18 08:59 Clopidogrel Bisulfate (plAVix TAB) 75 mg QAM PO 04/04/18 09:00 05/04/18 08:59 Tramadol HCl (Ultram Tab) 50 mg Q4H PRN PO 04/03/18 17:15 05/03/18 17:14 Morphine Sulfate (MoRPHine SULFATE INJ) 2 mg Q4H PRN IV 04/03/18 17:15 04/17/18 17:14
[2018-04-04] MEDS ORDERED: CLOPIDOGREL BISULFATE 75 MG TAB PO SCH (09:00)
[2018-04-04] MEDS: ASPIRIN 81 MG ECTAB PO SCH (09:16)
[2018-04-04] MEDS: PANTOprazole SOD 40 MG TAB PO SCH (09:16)
--- NOTE | 2018-04-04 09:58 | Critical Care Progress Note ---
Critical Care Progress Note Date of Service April 04, 2018. Attending Dr. Espinal Subjective This is a 72-year-old female that was admitted the night before last for acute stroke. The patient received TPA and over the next 24 hours focal deficits primarily resolved. Patient had no bleeding. Hemoglobin remained stable. PT/OT consults and evaluations were placed and completed. The 2 TPA orders were entered per protocol. This morning patient will start on aspirin and Plavix per discussion with Dr. Saini from neurology. Patient denies any nausea or vomiting. She has no imbalance issues. Her visual field changes have resolved. Facial droop is much improved. She has no difficulty with swallowing. She has no incontinence of urine or feces. She did have bowel movement this morning of normal consistency. She does continue to have a headache which is consistent with what she has had for many years. Home medications have been held secondary to acute stroke. This was discussed with Dr. Saini yesterday and patient was placed on tramadol and 2 mg of morphine as needed which had limited to no effect. Patient has no other acute complaints today. Anticipate transfer out of the intensive care unit for further rehabilitation. Objective GENERAL : No acute distress. EYES: No icterus, gaze conjugate. Pupils round and equal NOSE: No evidence of epistaxis. MOUTH: No lesions or candidiasis. Facial droop on the left is significantly improved NECK: Supple. No stridor LUNGS: CTA B/L, no wheezes, rales or rhonchi HEART: Regular, rate controlled ABDOMEN: Soft, NT, ND, BS Present EXTREMITIES: No LE edema, pedal pulses intact NEURO: A&OX3. Pupils equal and reactive to light. Gaze is conjugate. No evidence of nystagmus. No slurred speech. No aphasia or difficulty with word finding. Short-term and long-term memory seem to be intact. Patient was able to read back of dietary pamphlet without difficulty. present and states that this is her normal emiliana of speech. Cerebellar function intact with finger to nose and rapid alternating movements. Gait deferred. Assessment & Plan Acute RIGHT FRONTAL CVA * CAM negative * MRI impression * 1. Acute infarct in the right frontal lobe. This is over 6 to 12 hours old by the presence of T2/FLAIR hyperintensity. No hemorrhagic conversion. * 2. Acute lacunar infarct in the white matter of the left posterior frontallobe. This additional finding could raise concern for emboli though this is considered less likely. * MRA impression * 1. No significant stenosis, aneurysm, or focal vessel occlusion. * TPA administered 04/02/2018 at 21:58 * TPA day #2 protocol initiated 04/03/2018 at 22:00 * No evidence of thrombus on echocardiogram * Neurology consulted -appreciate Dr. Saini's input * Plavix and aspirin started this morning * Neurology will follow the patient * Patient currently follows with Dr. Saini for migraines -continue outpatient follow-up * History of migraines/medical treatment to be determined by Dr. Saini CARDIOVASCULAR * Continue home regimen. Patient with systolic pressure at this time in the 130s. Heart rate in the 80s * No chest pain or tightness * Hemodynamically stable PULMONARY * Oxygenating well on room air * No history of pulmonary disease or tobacco abuse * Follow clinically RENAL * BUN 7, creatinine 0.74 * Adequate urine output GI * History of GERD * History of hernia with fundoplication * Continue PPI * Tolerating diet although she does have early satiety. reports that this is typical of intake at home NUTRITION * Tolerating diet * No dysphasia or evidence of aspiration * Continue oral diet as tolerated ELECTROLYTES * Balanced ENDOCRINE * No history of diabetes mellitus * Positive history for Bill's thyroiditis * Continue home medications * Continue with outpatient follow-up and management HEME * Hemoglobin stable * No active bleeding * 36 hours out from TPA administration * Follow for clinical signs of bleeding ID * No evidence of infection * Afebrile IV ACCESS * Peripheral IVs in place * No indication for central line DVT PROPHYLAXIS * Patient received TPA yesterday evening * No further chemical prophylaxis * Teds/SCDs * Increase ambulation as tolerated by patient in accordance with physical therapy guidelines CCT: 0 minutes. Level 2 inpatient bill Consults & Procedures Consultants: Neurology -Dr. Saini Procedures: Administer tPA 04/02/2018 MRI/MRA 04/03/2018 Echocardiogram 04/03/2018 Data Medications: Current Inpatient Medications Medications (Trade) Dose Ordered Sig/Priyanka Route Start Time Stop Time Status Last Admin Dose Admin Acetaminophen (Tylenol Tab) 650 mg Q4H PRN PO 04/02/18 23:30 05/02/18 23:29 Lorazepam (Ativan Inj) 0.25 mg Q4H PRN IV 04/02/18 23:30 05/02/18 23:29 Nitroglycerin (Nitrostat Tab) 0.4 mg UD PRN SL 04/02/18 23:30 05/02/18 23:29 Miscellaneous Information (Icu Protocol For Hyperglycemia) 1 ea PRN PRN N/A 04/02/18 23:30 04/04/18 23:29 Miscellaneous Information (Pharmacist Discharge Med Rec Consult) 1 ea UD PRN N/A 04/02/18 23:30 05/02/18 23:29 Quetiapine Fumarate (seroQUEL TAB) 25 mg HS PO 04/03/18 21:00 05/03/18 20:59 04/03/18 19:45 25 MG Tramadol HCl (Ultram Tab) 25 mg Q6H PRN PO 04/02/18 23:30 05/02/18 23:29 Prochlorperazine Edisylate 5 mg/ Syringe 5 ml @ 5 mls/min Q6H PRN IV 04/02/18 23:30 05/02/18 23:29 Pantoprazole Sodium (Protonix Tab) 40 mg QAM PO 04/03/18 09:00 05/03/18 08:59 04/04/18 09:16 40 MG Simvastatin (Zocor Tab) 40 mg PM PO 04/03/18 21:00 05/03/18 20:59 04/03/18 19:46 40 MG Aspirin (Ecotrin Tab) 81 mg QAM PO 04/04/18 09:00 05/04/18 08:59 04/04/18 09:16 81 MG Clopidogrel Bisulfate (plAVix TAB) 75 mg QAM PO 04/04/18 09:00 05/04/18 08:59 04/04/18 09:16 75 MG Tramadol HCl (Ultram Tab) 50 mg Q4H PRN PO 04/03/18 17:15 05/03/18 17:14 Morphine Sulfate (MoRPHine SULFATE INJ) 2 mg Q4H PRN IV 04/03/18 17:15 04/17/18 17:14 Atenolol (Tenormin Tab) 12.5 mg QAM PO 04/04/18 09:00 05/04/18 08:59 UNV Vital Signs: Date Time Temp Pulse Resp B/P (MAP) Pulse Ox O2 Delivery O2 Flow Rate FiO2 04/04/18 08:01 36.9 89 17 159/68 (98) 94 Room Air 18 07:00 76 18 153/69 (97) 91 Room Air 618 06:00 77 17 130/78 (95) 90 04/04/18 04:09 95 Room Air 18 04:00 37.2 70 16 124/63 (83) 94 Room Air 04/04/18 03:00 70 17 124/54 (77) 89 04/04/18 02:00 71 15 119/63 (81) 89 04/04/18 01:00 72 15 115/56 (75) 90 04/04/18 00:00 74 15 121/72 (88) 92 04/04/18 00:00 95 Room Air 518 21:30 76 20 149/65 (93) 92 Room Air 5/18 20:30 75 15 153/80 (104) 91 Room Air 18 20:00 80 17 132/66 (88) 95 Room Air 18 20:00 95 Room Air 18 19:30 37.0 73 16 159/79 (105) 93 Room Air 55/18 18:30 73 16 130/58 (82) 93 Room Air 5/18 18:00 76 18 122/66 (84) 90 Room Air 18 17:30 74 17 126/64 (84) 91 Room Air 55/18 17:00 75 22 144/68 (93) 95 Room Air 55/18 16:37 82 19 132/70 (90) 99 Room Air 18 16:32 37.0 78 20 180/66 (104) 94 Room Air 55/18 16:00 Room Air 5/5/18 15:30 77 14 148/60 (89) 95 Room Air 5/5/18 14:34 79 18 135/64 (87) 95 Room Air 55/18 13:30 67 14 140/65 (90) 93 Room Air 5/5/18 12:30 36.9 68 20 133/81 (98) 94 Room Air 5/5/18 12:00 Room Air 5/5/18 11:30 72 20 151/74 (99) 93 Room Air 5/5/18 10:29 74 16 132/66 (88) 93 Room Air 5/5/18 09:24 77 18 166/72 (103) 95 Room Air Laboratory Results: Last 24 Hours Test 04/03/18 11:32 04/03/18 16:21 04/04/18 04:29 Bedside Glucose 105 mg/dl 93 mg/dl White Blood Count 6.31 K/uL Red Blood Count 4.29 M/uL Hemoglobin 13.7 g/dL Hematocrit 39.8 % Mean Corpuscular Volume 92.8 fL Mean Corpuscular Hemoglobin 31.9 pg Mean Corpuscular Hemoglobin Concent 34.4 g/dl Platelet Count 209 K/uL Mean Platelet Volume 9.6 fL Neutrophils (%) (Auto) 48.7 % Lymphocytes (%) (Auto) 27.7 % Monocytes (%) (Auto) 12.0 % Eosinophils (%) (Auto) 10.8 % Basophils (%) (Auto) 0.6 % Neutrophils # (Auto) 3.07 K/uL Lymphocytes # (Auto) 1.75 K/uL Monocytes # (Auto) 0.76 K/uL Eosinophils # (Auto) 0.68 K/uL Basophils # (Auto) 0.04 K/uL RDW Standard Deviation 47.3 fL RDW Coefficient of Variation 14.0 % Immature Granulocyte % (Auto) 0.2 % Immature Granulocyte # (Auto) 0.01 K/uL Sodium Level 140 mmol/L Potassium Level 3.5 mmol/L Chloride Level 108 mmol/L Carbon Dioxide Level 27 mmol/L Anion Gap 5.0 mmol/L Blood Urea Nitrogen 7 mg/dl Creatinine 0.74 mg/dl Est Creatinine Clear Calc Drug Dose 66.7 ml/min Estimated GFR () 93.2 Estimated GFR (Non- 80.4 BUN/Creatinine Ratio 9.6 Random Glucose 91 mg/dl Calcium Level 8.7 mg/dl Phosphorus Level 3.8 mg/dl Magnesium Level 2.0 mg/dl Total Bilirubin 0.4 mg/dl Direct Bilirubin 0.1 mg/dl Aspartate Amino Transf (AST/SGOT) 23 U/L Alanine Aminotransferase (ALT/SGPT) 25 U/L Alkaline Phosphatase 78 U/L Total Protein 7.1 gm/dl Albumin 3.5 gm/dl
--- NOTE | 2018-04-04 12:31 | PROGRESS NOTE ---
DATE: 04/04/2018 Carmela is still in the unit but is being transported out. She looks well. She still has a little left inferior quadrantanopsia and neglect of a bilaterally presented stimuli in that particular visual field and may have a slight drift to the left arm and a little left upper motor neuron facial asymmetry. Her headaches are constant daily and she has been off her normal butalbital with codeine which she takes on a daily basis and has for years. We are going to restart this and let her take up to 1 tablet every 4 hours for a maximum of 3 a day and I will see how things go. I suspect she can actually go home. I do not think she is going to need any physical therapy or speech therapy and we can see her on an outpatient basis at which point we will schedule the ZIO patch and probably do an outpatient coagulopathy workup even though I think this is probably a little excessive. We have a woman who is 72 years old, has never had any hypercoagulability and now has had a stroke that simply is not explained. The odds of finding an underlying coagulopathy in this setting are pretty small and the more likely odds would be of finding occult paroxysmal atrial fibrillation. Whatever the case, all this remains on outpatient laboratory study as her current coagulation state is still disrupted by the TPA. Otherwise, I would simply keep her on aspirin and Plavix until we see her in followup in probably about 3-4 weeks. We will take a look at her tomorrow and make further recommendations then. JCARLOS
[2018-04-04] MEDS: BUTALBITAL/ASA/CAFFEINE/COD 50/325/40/30 MG CAP PO PRN (12:40)
[2018-04-04] MEDS: QUETIAPINE FUMARATE 25 MG TAB PO SCH (20:34)
[2018-04-04] MEDS: SIMVASTATIN 40 MG TAB PO SCH (20:34)
[2018-04-05] VITALS (8 sets, daily range): BP systolic 130–177; BP diastolic 44–77; PULSE 54–130; TEMP 36.4–36.9; O2SAT 91–93
--- NOTE | 2018-04-05 04:57 | Progress Note ---
Internal Med Progress Note Date of Service: April 05, 2018. Provider Documentation: Made aware by RN of new onset rapid AF noted on the monitor. CR 120s, SBP 170s Patient asymptomatic. serum k 3.5 mag 1.9 AP New-onset A. fib Embolic CVA Facilitate home Atenolol for rate/BP control Supplement electrolytes. Initiate anticoagulation. (Continue ASA; stop Plavix initiated for possible aspirin failure - PAF likely source of embolic CVA for which anticoagulation is warranted.) Case discussed with neurologist on-call Dr. Saini who recommended contacting cardiology for an NOAC recommendations. Dr. Mcarthur ([facility] [place] tool room attendant interim controller) recommended initiating Apixaban 5 mg p.o. BID. Will relay developments to AM provider. Vital Signs: Date Time Temp Pulse Resp B/P (MAP) Pulse Ox O2 Delivery O2 Flow Rate FiO2 04/05/18 12:00 Room Air 04/05/18 10:50 36.6 60 20 174/52 (92) 92 Room Air 04/05/18 08:00 Room Air 04/05/18 06:34 36.9 70 17 130/45 (73) 92 Room Air 04/05/18 05:15 130 177/77 (110) 04/05/18 04:00 Room Air 04/05/18 03:24 36.8 64 20 154/62 (92) 93 Room Air 04/04/18 23:59 Room Air 04/04/18 23:30 36.8 70 18 140/59 (86) 94 Room Air 04/04/18 20:00 Room Air 04/04/18 19:29 37.0 58 20 146/76 (99) 99 Room Air 04/04/18 16:44 36.7 64 20 127/66 (86) 91 Room Air 04/04/18 16:00 Room Air Lab Results: Results Past 24 Hours Test 04/05/18 05:14 Range/Units White Blood Count 7.36 4.8-10.8 K/uL Red Blood Count 4.62 4.2-5.4 M/uL Hemoglobin 14.6 12.0-16.0 g/dL Hematocrit 42.5 37-47 % Mean Corpuscular Volume 92.0 80-100 fL Mean Corpuscular Hemoglobin 31.6 25-34 pg Mean Corpuscular Hemoglobin Concent 34.4 32-36 g/dl Platelet Count 215 130-400 K/uL Mean Platelet Volume 9.6 7.4-10.4 fL Neutrophils (%) (Auto) 46.1 % Lymphocytes (%) (Auto) 30.7 % Monocytes (%) (Auto) 11.0 % Eosinophils (%) (Auto) 11.3 % Basophils (%) (Auto) 0.8 % Neutrophils # (Auto) 3.39 1.4-6.5 K/uL Lymphocytes # (Auto) 2.26 1.2-3.4 K/uL Monocytes # (Auto) 0.81 0.11-0.59 K/uL Eosinophils # (Auto) 0.83 0-0.5 K/uL Basophils # (Auto) 0.06 0-0.2 K/uL RDW Standard Deviation 45.9 36.4-46.3 fL RDW Coefficient of Variation 13.7 11.5-14.5 % Immature Granulocyte % (Auto) 0.1 % Immature Granulocyte # (Auto) 0.01 0.00-0.02 K/uL Activated Partial Thromboplast Time 25.7 21.0-31.0 SECONDS Partial Thromboplastin Ratio 1.0 Sodium Level 142 136-145 mmol/L Potassium Level 3.5 3.5-5.1 mmol/L Chloride Level 104 98-107 mmol/L Carbon Dioxide Level 27 21-32 mmol/L Anion Gap 10.0 3-11 mmol/L Blood Urea Nitrogen 9 7-18 mg/dl Creatinine 0.77 0.60-1.20 mg/dl Est Creatinine Clear Calc Drug Dose 62.7 ml/min Estimated GFR () 88.8 Estimated GFR (Non- 76.6 BUN/Creatinine Ratio 11.3 10-20 Random Glucose 94 70-99 mg/dl Calcium Level 8.6 8.5-10.1 mg/dl Magnesium Level 1.9 1.8-2.4 mg/dl
[2018-04-05] MEDS ORDERED: POTASSIUM CHLORIDE 10 MEQ TABCR PO STA (05:08)
[2018-04-05 05:31] LABS: BASO % 0.8 %; BASO ABS # 0.06 K/uL (0-0.2); EOS % 11.3 %; EOS ABS # 0.83 K/uL (0-0.5); HEMATOCRIT 42.5 % (37-47); HEMOGLOBIN 14.6 g/dL (12.0-16.0); IG# 0.01 K/uL (0.00-0.02); LYMPH % 30.7 %; LYMPH ABS # 2.26 K/uL (1.2-3.4); MEAN CORPUSCULAR HEMOGLOBIN 31.6 pg (25-34); MEAN CORPUSCULAR HGB CONC 34.4 g/dl (32-36); MEAN PLATELET VOLUME 9.6 fL (7.4-10.4); MONO ABS # 0.81 K/uL (0.11-0.59); NEUT % 46.1 %; NEUT ABS # 3.39 K/uL (1.4-6.5); PLATELET COUNT 215 K/uL (130-400); RED CELL DISTRIBUTION WIDTH CV 13.7 % (11.5-14.5); RED CELL DISTRIBUTION WIDTH SD 45.9 fL (36.4-46.3); WHITE BLOOD COUNT 7.36 K/uL (4.8-10.8)
[2018-04-05 05:40] LABS: PTT PATIENT 25.7 SECONDS (21.0-31.0)
[2018-04-05 06:04] LABS: CALCIUM 8.6 mg/dl (8.5-10.1); CREATININE 0.77 mg/dl (0.60-1.20); POTASSIUM 3.5 mmol/L (3.5-5.1)
[2018-04-05] MEDS ORDERED: MAGNESIUM SULFATE 1GM / D5W 100 ML IV ONE (06:30)
[2018-04-05] MEDS ORDERED: APIXABAN 2.5 MG TAB PO ONE (06:31)
--- NOTE | 2018-04-05 07:19 | Progress Note ---
Post ICU Progress Note Date & Time April 05, 2018 at 07:15 Vital Signs Vital Signs Past 12 Hours Date Time Temp Pulse Resp B/P (MAP) Pulse Ox O2 Delivery O2 Flow Rate FiO2 04/05/18 06:34 36.9 70 17 130/45 (73) 92 Room Air 04/05/18 05:15 130 177/77 (110) 04/05/18 04:00 Room Air 04/05/18 03:24 36.8 64 20 154/62 (92) 93 Room Air 04/04/18 23:59 Room Air 04/04/18 23:30 36.8 70 18 140/59 (86) 94 Room Air 04/04/18 20:00 Room Air 04/04/18 19:29 37.0 58 20 146/76 (99) 99 Room Air Notes Mental Status: alert / awake Nausea / Vomiting: adequately controlled Pain: adequately controlled Airway Patency, RR, SpO2: stable & adequate BP & HR: see Notes Patient is a 72-year-old female initially admitted to the ICU after CVA event. She had acute LEFT-sided facial droop and RIGHT-sided gaze with associated hemianopsia. Most of her symptoms have near completely resolved at this point after receiving TPA. She remained hemodynamically stable and was downgraded from ICU. On evaluation today, the patient is resting comfortably. She offers no complaints despite being in A. fib with rapid RVR. She apparently started with this rhythm at approximately 430 this morning. She was provided 25 mg oral atenolol per attending team. In conversation, she admits to having palpitations in the past and there is actually a time approximately 1 year ago where she nearly came to the emergency department for the symptoms. At this point, patient will likely require anticoagulation to her regime. This certainly makes sense in the setting of negative CVA evaluation to this point. Consider outpatient follow up in 1 to 2 weeks with: Cardiology, Neurology, PCP Repeat imaging needed: Per admitting services. Follow up cultures: None Reviewed progress notes, labs, and inpatient medication list Continue current management Additional recommendations: Defer to Neurology, Cardiology Thank you for allowing us to participate in the care of this patient. At this time, Critical Care Services will sign off on this case. Please feel free to reconsult as needed. Consults & Procedures Consultants: Neurology -Dr. Saini Procedures: Administer tPA 04/02/2018 MRI/MRA 04/03/2018 Echocardiogram 04/03/2018
[2018-04-05] MEDS: ASPIRIN 81 MG ECTAB PO SCH (07:22)
[2018-04-05] MEDS: PANTOprazole SOD 40 MG TAB PO SCH (07:22)
--- NOTE | 2018-04-05 09:09 | Cardiology Consultation ---
Cardiology Consultation Date of Service April 05, 2018. Cardiology Consultation Indication: Consultation for atrial fibrillation History: This is a 72-year-old female who presented with right hemisphere CVA. She received TPA and her symptoms completely resolved. The MRI of the brain indicates a acute right frontal lobe infarct as well as a smaller left posterior occipital lacunar infarct which taken together could indicate an embolic event. The patient has been convalescing for the past 2 days and then early this morning developed atrial fibrillation. Patient was treated with atenolol and has been started on Eliquis. She converted around 8:00 this morning to normal sinus rhythm. She has no prior history of heart disease. She does state that a year ago she had a tachycardia which lasted most of the night but spontaneously resolved in the morning. She did not seek medical attention. She has no prior history of congestive heart failure or coronary artery disease. No prior history of diabetes or hypertension. She is a lifelong non-smoker. Her only significant past medical history is that of migraine headaches. Allergies: No known medical allergies Reported Home Medications Medications Dose Route/Sig Max Daily Dose Days Date Category [But/APAP/CAF-CODEINE] 1 Cap PO DAILY PRN 04/02/18 Reported Zocor (Simvastatin) 40 Mg Tab 40 Mg PO QPM 09/23/17 Reported Tenormin (Atenolol) 50 Mg Tab 50 Mg PO DAILY 09/23/17 Reported Aspirin Ec (Aspirin) 81 Mg Tab 81 Mg PO QAM 10/14/16 Reported Seroquel (Quetiapine Fumarate) 25 Mg Tab 25 Mg PO HS 10/14/16 Reported Past medical history: As outlined above the patient has a history of migraine headaches and has been followed by neurology for several years. She has no prior history of strokes, seizures, cardiac arrhythmias, kidney disease, diabetes or hypertension. Social history: Patient is a lifelong non-smoker. She lives with her . Family medical history: Non-contributory General: The patient denies weight change, night sweats, fever, chills. Head: The patient denies headache and prior head trauma. Cardiovascular: The patient denies chest pain or chest discomfort, dyspnea on exertion, palpitations, PND, orthopnea, edema, spontaneous shortness of breath, syncope and near syncope. Pulmonary: The patient denies cough, wheeze, pleurisy, hemoptysis, sputum, and excessive snoring. Gastrointestinal: The patient denies nausea, vomiting, diarrhea, constipation, bloating, hematemesis, hematochezia, and abdominal pain. Skin: The patient denies diaphoresis and rash. Musculoskeletal: The patient denies joint pain, joint swelling, myalgia, back pain, neck pain and prior injuries. Neurological: The patient denies prior stroke and seizures Vital Signs Past 12 Hours Date Time Temp Pulse Resp B/P (MAP) Pulse Ox O2 Delivery O2 Flow Rate FiO2 04/05/18 06:34 36.9 70 17 130/45 (73) 92 Room Air 04/05/18 05:15 130 177/77 (110) 04/05/18 04:00 Room Air 04/05/18 03:24 36.8 64 20 154/62 (92) 93 Room Air 04/04/18 23:59 Room Air 04/04/18 23:30 36.8 70 18 140/59 (86) 94 Room Air General Appearance: Alert and Oriented x3. NAD. Head: Normocephalic Atraumatic. Eyes: PERRLA, EOMI, conjunctiva and sclera clear Neck: Supple. No carotid bruits noted. No JVD. No HJD. Respiratory: Breath sounds clear to auscultation bilaterally. No w/r/r. Cardiovascular: Reg rate and rhythm. S1 and S2 noted. No murmurs, rubs, gallops. PMI non displace. Abdomen: Normal bowel sounds, soft nontender. no abdominal bruits. Extremities: No edema, no clubbing or cyanosis. distal pulses 2/4 bilaterally. Neuro: No focal deficits. Psychiatric: Normal affect. Last 24 Hours Test 04/05/18 05:14 White Blood Count 7.36 K/uL Red Blood Count 4.62 M/uL Hemoglobin 14.6 g/dL Hematocrit 42.5 % Mean Corpuscular Volume 92.0 fL Mean Corpuscular Hemoglobin 31.6 pg Mean Corpuscular Hemoglobin Concent 34.4 g/dl Platelet Count 215 K/uL Mean Platelet Volume 9.6 fL Neutrophils (%) (Auto) 46.1 % Lymphocytes (%) (Auto) 30.7 % Monocytes (%) (Auto) 11.0 % Eosinophils (%) (Auto) 11.3 % Basophils (%) (Auto) 0.8 % Neutrophils # (Auto) 3.39 K/uL Lymphocytes # (Auto) 2.26 K/uL Monocytes # (Auto) 0.81 K/uL Eosinophils # (Auto) 0.83 K/uL Basophils # (Auto) 0.06 K/uL RDW Standard Deviation 45.9 fL RDW Coefficient of Variation 13.7 % Immature Granulocyte % (Auto) 0.1 % Immature Granulocyte # (Auto) 0.01 K/uL Activated Partial Thromboplast Time 25.7 SECONDS Partial Thromboplastin Ratio 1.0 Sodium Level 142 mmol/L Potassium Level 3.5 mmol/L Chloride Level 104 mmol/L Carbon Dioxide Level 27 mmol/L Anion Gap 10.0 mmol/L Blood Urea Nitrogen 9 mg/dl Creatinine 0.77 mg/dl Est Creatinine Clear Calc Drug Dose 62.7 ml/min Estimated GFR () 88.8 Estimated GFR (Non- 76.6 BUN/Creatinine Ratio 11.3 Random Glucose 94 mg/dl Calcium Level 8.6 mg/dl Magnesium Level 1.9 mg/dl Echocardiogram: * -- Conclusions -- * The left ventricle is normal in size. * There is borderline concentric left ventricular hypertrophy. * The left ventricular wall motion is normal. * Left ventricular systolic function is normal. * Ejection Fraction = 60-65%. * The mitral valve leaflets are mildly thickened * There is mild mitral regurgitation. * There is trace tricuspid regurgitation. * The interatrial septum is intact with no evidence for an atrial septal defect. * Injection of contrast documented no interatrial shunt. Impression: 1. Embolic CVA 2. Atrial fibrillation 3. History migraine headaches Recommendations: The patient converted spontaneously back to normal sinus rhythm. She is at increased risk for further embolic events and should be anticoagulated. She has been started on Eliquis. I suspect that she will not need more than the atenolol at this point to control her atrial fibrillation. We will follow along with you during her hospital stay.
[2018-04-05] MEDS: BUTALBITAL/ASA/CAFFEINE/COD 50/325/40/30 MG CAP PO PRN (10:10)
--- NOTE | 2018-04-05 14:22 | Neurology Progress Notes ---
Neurology Progress Note Date of Service April 05, 2018. Cindy Casey is a 72 year old female who had returned from a wedding and was noted to be slurring her speech and have left facial droop. No one sided weakness was noted at that time. She was brought to the ED and a stroke alert was called and she received TPA. She was noted to have a fib and was evaluated by cardiology. She was started on Eliquis and atenolol. Today she states she is feeling better. She was up walking with physical therapy and did well. She has not heard whether she is going to have inpatient physical therapy or be discharged to home. denies CP, SOB, abdominal pain, weakness, numbness tingling, N, V, swallowing issues, vision changes. Objective Date Time Temp Pulse Resp B/P (MAP) Pulse Ox O2 Delivery O2 Flow Rate FiO2 04/05/18 12:00 Room Air 04/05/18 10:50 36.6 60 20 174/52 (92) 92 Room Air 04/05/18 08:00 Room Air 04/05/18 06:34 36.9 70 17 130/45 (73) 92 Room Air 04/05/18 05:15 130 177/77 (110) 04/05/18 04:00 Room Air 04/05/18 03:24 36.8 64 20 154/62 (92) 93 Room Air 04/04/18 23:59 Room Air 04/04/18 23:30 36.8 70 18 140/59 (86) 94 Room Air 04/04/18 20:00 Room Air 04/04/18 19:29 37.0 58 20 146/76 (99) 99 Room Air 04/04/18 16:44 36.7 64 20 127/66 (86) 91 Room Air 04/04/18 16:00 Room Air Last 24 Hours Test 04/05/18 05:14 White Blood Count 7.36 K/uL Red Blood Count 4.62 M/uL Hemoglobin 14.6 g/dL Hematocrit 42.5 % Mean Corpuscular Volume 92.0 fL Mean Corpuscular Hemoglobin 31.6 pg Mean Corpuscular Hemoglobin Concent 34.4 g/dl Platelet Count 215 K/uL Mean Platelet Volume 9.6 fL Neutrophils (%) (Auto) 46.1 % Lymphocytes (%) (Auto) 30.7 % Monocytes (%) (Auto) 11.0 % Eosinophils (%) (Auto) 11.3 % Basophils (%) (Auto) 0.8 % Neutrophils # (Auto) 3.39 K/uL Lymphocytes # (Auto) 2.26 K/uL Monocytes # (Auto) 0.81 K/uL Eosinophils # (Auto) 0.83 K/uL Basophils # (Auto) 0.06 K/uL RDW Standard Deviation 45.9 fL RDW Coefficient of Variation 13.7 % Immature Granulocyte % (Auto) 0.1 % Immature Granulocyte # (Auto) 0.01 K/uL Activated Partial Thromboplast Time 25.7 SECONDS Partial Thromboplastin Ratio 1.0 Sodium Level 142 mmol/L Potassium Level 3.5 mmol/L Chloride Level 104 mmol/L Carbon Dioxide Level 27 mmol/L Anion Gap 10.0 mmol/L Blood Urea Nitrogen 9 mg/dl Creatinine 0.77 mg/dl Est Creatinine Clear Calc Drug Dose 62.7 ml/min Estimated GFR () 88.8 Estimated GFR (Non- 76.6 BUN/Creatinine Ratio 11.3 Random Glucose 94 mg/dl Calcium Level 8.6 mg/dl Magnesium Level 1.9 mg/dl Imaging: MRI with and without contrast-Acute infarct in the right frontal lobe. This is over 6 to 12 hours old by the presence of T2/FLAIR hyperintensity. No hemorrhagic conversion. Acute lacunar infarct in the white matter of the left posterior frontal lobe. Exam: Physical Exam: Constitutional: appearance nourished, healthy and normal Ears, Nose, Mouth and Throat: mucous membranes moist, no injection and skin normal, eyes normal Cardiovascular: irregular Respiratory: clear to auscultation (CTA) and no rales, rhonchi or wheeze Musculoskeletal: no peripheral edema and good distal pulses Skin: no stigmata of neurocutaneous disease noted and normal and intact Eyes: extraocular muscles intact (EOMI) and pupils equal, round and reactive to light (PERRL), gross visual sweet intact NEUROLOGIC EXAMINATION: Mental status: Alert and interactive Oriented to full date and location Oriented to person Speech fluent with some dysphasia Cranial Nerves slight flattening of naso labial fold on left, tongue mid line Coordination: finger to nose Gait/Stance: Posture normal. Gait normal: with steady with steps, base, turning, heel and toe walking and tandem gait. 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 5/5 bilaterally hip flex patellar flex ext bilaterally 5/5 Current Inpatient Medications Medications (Trade) Dose Ordered Sig/Priyanka Route Start Time Stop Time Status Last Admin Dose Admin Acetaminophen (Tylenol Tab) 650 mg Q4H PRN PO 04/02/18 23:30 05/02/18 23:29 Lorazepam (Ativan Inj) 0.25 mg Q4H PRN IV 04/02/18 23:30 05/02/18 23:29 Nitroglycerin (Nitrostat Tab) 0.4 mg UD PRN SL 04/02/18 23:30 05/02/18 23:29 Miscellaneous Information (Pharmacist Discharge Med Rec Consult) 1 ea UD PRN N/A 04/02/18 23:30 05/02/18 23:29 Quetiapine Fumarate (seroQUEL TAB) 25 mg HS PO 04/03/18 21:00 05/03/18 20:59 04/04/18 20:34 25 MG Tramadol HCl (Ultram Tab) 25 mg Q6H PRN PO 04/02/18 23:30 05/02/18 23:29 Prochlorperazine Edisylate 5 mg/ Syringe 5 ml @ 5 mls/min Q6H PRN IV 04/02/18 23:30 05/02/18 23:29 Pantoprazole Sodium (Protonix Tab) 40 mg QAM PO 04/03/18 09:00 05/03/18 08:59 04/05/18 07:22 40 MG Simvastatin (Zocor Tab) 40 mg PM PO 04/03/18 21:00 05/03/18 20:59 04/04/18 20:34 40 MG Aspirin (Ecotrin Tab) 81 mg QAM PO 04/04/18 09:00 05/04/18 08:59 04/05/18 07:22 81 MG Tramadol HCl (Ultram Tab) 50 mg Q4H PRN PO 04/03/18 17:15 05/03/18 17:14 Morphine Sulfate (MoRPHine SULFATE INJ) 2 mg Q4H PRN IV 04/03/18 17:15 04/17/18 17:14 Butalbital/ Aspirin/Caffeine/ Codeine (Fiorinal W/ Codeine Cap) 1 cap 3XDQ4 PRN PO 04/04/18 11:45 05/04/18 11:44 04/05/18 10:10 1 CAP Atenolol (Tenormin Tab) 25 mg QAM PO 04/06/18 09:00 05/04/18 08:59 Apixaban (Eliquis Tab) 5 mg BID PO 04/05/18 21:00 05/05/18 20:59 Impression 72 year old female s/p acute infarct treated with tPa and no on Eliquis and aspirin Plan 1. Eliqus started for treatment of new onset afib 2. PT/OT/speech for any discharge needs 3. DM, DL, HTN optimize LDL <70 4. cardiology on board for treatment course and recommendations 5. headache management no more than 1 fiorcet per day to avoid rebound headaches follow up neurology 2-3 weeks after discharge from rehab or hospital stay Dr Keven Saini, or Lorena Crowell PAC schedule I have seen and discussed above patient with Dr Keven Saini, neurology Patient seen and discusses with Lorena Crowell PAC and with Dr Miles this am reurrent episodes of asymnptmatic brief duration a fib which is now the likely cause of the cva has eliminated the need for a hypercoagulability workup and is now rxed with eliquis and cardiology will be adressing medical management Headaches persist and agree with holding meds low as we are now likely in rebound setting Exam unchanged minor left inferior field cut with some neglect minor left facial asymmetry and slight drift of left arm and some sensory neglect but all improving will follow up tomorrow Keven Saini MD
[2018-04-05] MEDS ORDERED: CLONIDINE HCL 0.1 MG TAB PO PRN (15:30)
--- NOTE | 2018-04-05 19:57 | Progress Note ---
Medicine Progress Note Date & Time of Visit: April 05, 2018 at 19:49. Subjective Noted to have A. fib overnight Started on apixaban twice daily Seen resting in bed comfortable in good spirits States she feels fine overall Denies chest pain, palpitations, dyspnea, dizziness Headache improving No other symptoms Objective Last 8 Hrs Date Time Temp Pulse Resp B/P (MAP) Pulse Ox O2 Delivery O2 Flow Rate FiO2 04/05/18 16:00 Room Air 04/05/18 15:53 36.4 54 18 144/60 (88) 93 Room Air 04/05/18 14:12 151/68 (95) 04/05/18 12:00 Room Air Physical Exam: General- oriented x 3, not in distress, speaks in sentences with no effort Eyes-anicteric Lungs- clear breath sounds bilaterally Heart- regular rhythm; no murmur, normal rate Abdomen- normal bowel sounds, soft, nontender Extremities- no pretibial edema, no calf tenderness Neuro- alert, oriented x 3; cn 2-12 grossly intact motor strength 5/5 on all ext sensation 5/5 on all ext Skin- warm & dry Laboratory Results: Last 24 Hours Test 04/05/18 05:14 White Blood Count 7.36 K/uL Red Blood Count 4.62 M/uL Hemoglobin 14.6 g/dL Hematocrit 42.5 % Mean Corpuscular Volume 92.0 fL Mean Corpuscular Hemoglobin 31.6 pg Mean Corpuscular Hemoglobin Concent 34.4 g/dl Platelet Count 215 K/uL Mean Platelet Volume 9.6 fL Neutrophils (%) (Auto) 46.1 % Lymphocytes (%) (Auto) 30.7 % Monocytes (%) (Auto) 11.0 % Eosinophils (%) (Auto) 11.3 % Basophils (%) (Auto) 0.8 % Neutrophils # (Auto) 3.39 K/uL Lymphocytes # (Auto) 2.26 K/uL Monocytes # (Auto) 0.81 K/uL Eosinophils # (Auto) 0.83 K/uL Basophils # (Auto) 0.06 K/uL RDW Standard Deviation 45.9 fL RDW Coefficient of Variation 13.7 % Immature Granulocyte % (Auto) 0.1 % Immature Granulocyte # (Auto) 0.01 K/uL Activated Partial Thromboplast Time 25.7 SECONDS Partial Thromboplastin Ratio 1.0 Sodium Level 142 mmol/L Potassium Level 3.5 mmol/L Chloride Level 104 mmol/L Carbon Dioxide Level 27 mmol/L Anion Gap 10.0 mmol/L Blood Urea Nitrogen 9 mg/dl Creatinine 0.77 mg/dl Est Creatinine Clear Calc Drug Dose 62.7 ml/min Estimated GFR () 88.8 Estimated GFR (Non- 76.6 BUN/Creatinine Ratio 11.3 Random Glucose 94 mg/dl Calcium Level 8.6 mg/dl Magnesium Level 1.9 mg/dl Assessment & Plan 1. Acute CVA Bilateral Frontal Lobe Infarct -- s/p TPA 04/02/18 900pm -- Brain MRI: acute bilateral frontal lobe infarct Head MRA: no stenosis Echo: no ASD repeat CT head s/p TPA: no hemorrhagic conversion -- symptoms resolved -- Neurology consulted Dr. Saini -- was already taking ASA Plavix addded Simva increased to 40mg BID --April 04, 2018 Noted to be in A. fib Already on atenolol, continued Stop Plavix, started on apixaban twice a day -- maintain BP on the higher side but below syst 170 resumed Atenolol with reduced dose monitor BP -- pt/ot in progress Atrial fibrillation --New-onset --Echo noted --Continue apixaban and metoprolol 2. Hypertensive urgency 2 to above. -- main BP on the higher side but below syst 170 3. Hyperlipidemia on statin therapy. -- Simva 40mg 4. Chronic migraine. -- Fioricet ordered Headache improving 5. GERD sp surgery DVT prophylaxis SCDs for now Dispo pending usually lives at home with family Anticipate discharge tomorrow when cleared by cardiology Current Inpatient Medications: Current Inpatient Medications Medications (Trade) Dose Ordered Sig/Priyanka Route Start Time Stop Time Status Last Admin Dose Admin Acetaminophen (Tylenol Tab) 650 mg Q4H PRN PO 04/02/18 23:30 05/02/18 23:29 Lorazepam (Ativan Inj) 0.25 mg Q4H PRN IV 04/02/18 23:30 05/02/18 23:29 Nitroglycerin (Nitrostat Tab) 0.4 mg UD PRN SL 04/02/18 23:30 05/02/18 23:29 Miscellaneous Information (Pharmacist Discharge Med Rec Consult) 1 ea UD PRN N/A 04/02/18 23:30 05/02/18 23:29 Quetiapine Fumarate (seroQUEL TAB) 25 mg HS PO 04/03/18 21:00 05/03/18 20:59 04/04/18 20:34 25 MG Tramadol HCl (Ultram Tab) 25 mg Q6H PRN PO 04/02/18 23:30 05/02/18 23:29 Prochlorperazine Edisylate 5 mg/ Syringe 5 ml @ 5 mls/min Q6H PRN IV 04/02/18 23:30 05/02/18 23:29 Pantoprazole Sodium (Protonix Tab) 40 mg QAM PO 04/03/18 09:00 05/03/18 08:59 04/05/18 07:22 40 MG Simvastatin (Zocor Tab) 40 mg PM PO 04/03/18 21:00 05/03/18 20:59 04/04/18 20:34 40 MG Aspirin (Ecotrin Tab) 81 mg QAM PO 04/04/18 09:00 05/04/18 08:59 04/05/18 07:22 81 MG Tramadol HCl (Ultram Tab) 50 mg Q4H PRN PO 04/03/18 17:15 05/03/18 17:14 Morphine Sulfate (MoRPHine SULFATE INJ) 2 mg Q4H PRN IV 04/03/18 17:15 04/17/18 17:14 Butalbital/ Aspirin/Caffeine/ Codeine (Fiorinal W/ Codeine Cap) 1 cap 3XDQ4 PRN PO 04/04/18 11:45 05/04/18 11:44 04/05/18 10:10 1 CAP Atenolol (Tenormin Tab) 25 mg QAM PO 04/06/18 09:00 05/04/18 08:59 Apixaban (Eliquis Tab) 5 mg BID PO 04/05/18 21:00 05/05/18 20:59 Clonidine HCl (Catapres Tab) 0.1 mg Q6H PRN PO 04/05/18 15:30 05/05/18 15:29
[2018-04-05] MEDS: SIMVASTATIN 40 MG TAB PO SCH (21:02)
[2018-04-05] MEDS: QUETIAPINE FUMARATE 25 MG TAB PO SCH (21:02)
[2018-04-05] MEDS: APIXABAN 2.5 MG TAB PO SCH (21:03)
[2018-04-05] MEDS ORDERED: ALUMINUM/MAGNESIUM SUSP 30 ML UDC PO STA (23:49)
[2018-04-06 03:47] VITALS: BP 115/56; PULSE 67; TEMP 36.7; O2SAT 91
[2018-04-06 06:38] VITALS: BP 121/64; PULSE 66; TEMP 36.7; O2SAT 90; O2SAT 92
[2018-04-06 06:49] LABS: BASO ABS # 0.06 K/uL (0-0.2); HEMATOCRIT 40.1 % (37-47); HEMOGLOBIN 13.8 g/dL (12.0-16.0); IG# 0.01 K/uL (0.00-0.02); LYMPH % 32.3 %; LYMPH ABS # 2.02 K/uL (1.2-3.4); MEAN CELL VOLUME 92.6 fL (80-100); MEAN CORPUSCULAR HEMOGLOBIN 31.9 pg (25-34); MEAN CORPUSCULAR HGB CONC 34.4 g/dl (32-36); MEAN PLATELET VOLUME 9.7 fL (7.4-10.4); MONO % 10.1 %; MONO ABS # 0.63 K/uL (0.11-0.59); NEUT % 40.4 %; NEUT ABS # 2.53 K/uL (1.4-6.5); PLATELET COUNT 218 K/uL (130-400); RED CELL DISTRIBUTION WIDTH CV 13.6 % (11.5-14.5); RED CELL DISTRIBUTION WIDTH SD 46.2 fL (36.4-46.3); WHITE BLOOD COUNT 6.25 K/uL (4.8-10.8)
[2018-04-06] MEDS: PANTOprazole SOD 40 MG TAB PO SCH (07:59)
[2018-04-06] MEDS: ASPIRIN 81 MG ECTAB PO SCH (07:59)
[2018-04-06] MEDS: APIXABAN 2.5 MG TAB PO SCH (07:59)
[2018-04-06] MEDS: BUTALBITAL/ASA/CAFFEINE/COD 50/325/40/30 MG CAP PO PRN (08:24)
--- NOTE | 2018-04-06 10:36 | Cardiology Follow-Up ---
Subjective Subjective Date of Service: April 06, 2018. Pt evaluation today including: conversation w/ patient, conversation w/ family , physical exam, lab review, review of studies, review of inpatient medication list Additional Details: The patient had an uneventful night. She maintains sinus rhythm and has had no more episodes of atrial fibrillation. Problem List Medical Problems: (1) Aspiration pneumonia Status: Acute (2) CVA (cerebral vascular accident) Status: Acute (3) Depression Status: Chronic (4) Facial droop due to acute cerebrovascular accident (CVA) Status: Acute (5) Gaze palsy Status: Acute (6) Bill's thyroiditis Status: Chronic (7) Hemianopia, homonymous, left Status: Acute (8) HLD (hyperlipidemia) Status: Chronic (9) HTN (hypertension) Status: Chronic (10) Hypothyroidism Status: Chronic (11) Hypoxia Status: Acute (12) Migraines Status: Chronic (13) Received intravenous tissue plasminogen activator (tPA) in emergency department Status: Acute Objective Vital Signs Last Vital Signs Documentation Date Time Temp Pulse Resp B/P (MAP) Pulse Ox O2 Delivery O2 Flow Rate FiO2 04/06/18 06:38 36.7 66 20 121/64 (83) 92 Room Air Physical Exam: General Appearance: no apparent distress ENT: normal ENT inspection Neck: supple, thyroid normal, no JVD Cardiovascular: regular rate, rhythm, no gallop, no JVD, no murmur Abdomen: non tender, soft, no organomegaly Extremities: normal range of motion, non-tender Neurologic/Psychiatric: no motor/sensory deficits, alert, normal mood/affect Skin: normal color, warm/dry Lymphatic: no adenopathy Assessment and Plan Impression: 1. Embolic CVA 2. Paroxysmal atrial fibrillation Recommendations: The patient had an uneventful night and is maintaining sinus rhythm. I believe she may be discharged home today with outpatient follow-up. She should be kept on her beta-sandra and Eliquis after discharge. I will arrange follow-up through our office. Medications: Current Inpatient Medications Medications (Trade) Dose Ordered Sig/Priyanka Route Start Time Stop Time Status Last Admin Dose Admin Acetaminophen (Tylenol Tab) 650 mg Q4H PRN PO 04/02/18 23:30 05/02/18 23:29 Lorazepam (Ativan Inj) 0.25 mg Q4H PRN IV 04/02/18 23:30 05/02/18 23:29 Nitroglycerin (Nitrostat Tab) 0.4 mg UD PRN SL 04/02/18 23:30 05/02/18 23:29 Miscellaneous Information (Pharmacist Discharge Med Rec Consult) 1 ea UD PRN N/A 04/02/18 23:30 05/02/18 23:29 Quetiapine Fumarate (seroQUEL TAB) 25 mg HS PO 04/03/18 21:00 05/03/18 20:59 04/05/18 21:02 25 MG Tramadol HCl (Ultram Tab) 25 mg Q6H PRN PO 04/02/18 23:30 05/02/18 23:29 04/05/18 21:02 25 MG Prochlorperazine Edisylate 5 mg/ Syringe 5 ml @ 5 mls/min Q6H PRN IV 04/02/18 23:30 05/02/18 23:29 Pantoprazole Sodium (Protonix Tab) 40 mg QAM PO 04/03/18 09:00 05/03/18 08:59 04/06/18 07:59 40 MG Simvastatin (Zocor Tab) 40 mg PM PO 04/03/18 21:00 05/03/18 20:59 04/05/18 21:02 40 MG Aspirin (Ecotrin Tab) 81 mg QAM PO 04/04/18 09:00 05/04/18 08:59 04/06/18 07:59 81 MG Tramadol HCl (Ultram Tab) 50 mg Q4H PRN PO 04/03/18 17:15 05/03/18 17:14 Morphine Sulfate (MoRPHine SULFATE INJ) 2 mg Q4H PRN IV 04/03/18 17:15 04/17/18 17:14 Butalbital/ Aspirin/Caffeine/ Codeine (Fiorinal W/ Codeine Cap) 1 cap 3XDQ4 PRN PO 04/04/18 11:45 05/04/18 11:44 04/06/18 08:24 1 CAP Atenolol (Tenormin Tab) 25 mg QAM PO 04/06/18 09:00 05/04/18 08:59 04/06/18 07:59 25 MG Apixaban (Eliquis Tab) 5 mg BID PO 04/05/18 21:00 05/05/18 20:59 04/06/18 07:59 5 MG Clonidine HCl (Catapres Tab) 0.1 mg Q6H PRN PO 04/05/18 15:30 05/05/18 15:29 Lab Results: Last 24 Hours Test 04/06/18 05:52 04/06/18 10:24 White Blood Count 6.25 K/uL Red Blood Count 4.33 M/uL Hemoglobin 13.8 g/dL Hematocrit 40.1 % Mean Corpuscular Volume 92.6 fL Mean Corpuscular Hemoglobin 31.9 pg Mean Corpuscular Hemoglobin Concent 34.4 g/dl Platelet Count 218 K/uL Mean Platelet Volume 9.7 fL Neutrophils (%) (Auto) 40.4 % Lymphocytes (%) (Auto) 32.3 % Monocytes (%) (Auto) 10.1 % Eosinophils (%) (Auto) 16.0 % Basophils (%) (Auto) 1.0 % Neutrophils # (Auto) 2.53 K/uL Lymphocytes # (Auto) 2.02 K/uL Monocytes # (Auto) 0.63 K/uL Eosinophils # (Auto) 1.00 K/uL Basophils # (Auto) 0.06 K/uL RDW Standard Deviation 46.2 fL RDW Coefficient of Variation 13.6 % Immature Granulocyte % (Auto) 0.2 % Immature Granulocyte # (Auto) 0.01 K/uL
[2018-04-06 11:07] LABS: CALCIUM 8.4 mg/dl (8.5-10.1); CREATININE 0.75 mg/dl (0.60-1.20); POTASSIUM 3.7 mmol/L (3.5-5.1)
[2018-04-06 11:43] VITALS: BP 154/63; PULSE 56; TEMP 36.8; O2SAT 98
--- NOTE | 2018-04-06 12:12 | Progress Note ---
Medicine Progress Note Date & Time of Visit: April 06, 2018 at 12:00. Subjective Seen resting in bed, comfortable in good spirits Remains in sinus rhythm States she feels good overall Ambulating in the hallways multiple times with no problems No problems with swallowing or speech No other focal neurologic deficits Denies chest pain, shortness of breath, palpitations Denies other symptoms States she is ready and would like to be discharged today Objective Last 8 Hrs Date Time Temp Pulse Resp B/P (MAP) Pulse Ox O2 Delivery O2 Flow Rate FiO2 04/06/18 11:43 36.8 56 18 154/63 (93) 98 04/06/18 08:00 Room Air 04/06/18 06:38 36.7 66 20 121/64 (83) 92 Room Air 04/06/18 04:15 Room Air Physical Exam: General- oriented x 3, not in distress, speaks in sentences with no effort Eyes-anicteric Lungs- clear breath sounds bilaterally., No rales or wheezes Heart-normal rate, regular rhythm; no murmur Abdomen- normal bowel sounds, soft, nontender Extremities- no pretibial edema, no calf tenderness Neuro- alert, oriented x 3; cn 2-12 grossly intact motor strength 5/5 on all ext sensation 5/5 on all ext No other gross focal neurologic deficits Skin- warm & dry Laboratory Results: Last 24 Hours Test 04/06/18 05:52 White Blood Count 6.25 K/uL Red Blood Count 4.33 M/uL Hemoglobin 13.8 g/dL Hematocrit 40.1 % Mean Corpuscular Volume 92.6 fL Mean Corpuscular Hemoglobin 31.9 pg Mean Corpuscular Hemoglobin Concent 34.4 g/dl Platelet Count 218 K/uL Mean Platelet Volume 9.7 fL Neutrophils (%) (Auto) 40.4 % Lymphocytes (%) (Auto) 32.3 % Monocytes (%) (Auto) 10.1 % Eosinophils (%) (Auto) 16.0 % Basophils (%) (Auto) 1.0 % Neutrophils # (Auto) 2.53 K/uL Lymphocytes # (Auto) 2.02 K/uL Monocytes # (Auto) 0.63 K/uL Eosinophils # (Auto) 1.00 K/uL Basophils # (Auto) 0.06 K/uL RDW Standard Deviation 46.2 fL RDW Coefficient of Variation 13.6 % Immature Granulocyte % (Auto) 0.2 % Immature Granulocyte # (Auto) 0.01 K/uL Sodium Level 141 mmol/L Potassium Level 3.7 mmol/L Chloride Level 107 mmol/L Carbon Dioxide Level 27 mmol/L Anion Gap 7.0 mmol/L Blood Urea Nitrogen 10 mg/dl Creatinine 0.75 mg/dl Est Creatinine Clear Calc Drug Dose 64.5 ml/min Estimated GFR () 91.7 Estimated GFR (Non- 79.1 BUN/Creatinine Ratio 12.7 Random Glucose 89 mg/dl Calcium Level 8.4 mg/dl Assessment & Plan 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 Saini -- was already taking ASA, Plavix initially added Already simvastatin 40 mg daily --April 04, 2018 Noted to have episodes of atrial fibrillation while in telemetry Already on atenolol, continued but atenolol has been reduced to to 25 mg p.o. daily to avoid hypotension and bradycardia Aspirin and the newly added Plavix discontinued, started on apixaban 5 mg twice a day Discharge plan: Atenolol 25 mg p.o. daily Apixaban 5 mg twice a day Simvastatin 40 mg daily Follow-up with neurologist Dr. Saini in 3 weeks Patient has been counseled regarding apixaban and increased bleeding risk Precautions given and was advised to return to the ER immediately if with any head trauma or significant bleeding Also discussed about stroke symptoms and calling 911 immediately if such symptoms Patient and his verbalized understanding NEWLY DIAGNOSED PAROXYSMAL ATRIAL FIBRILLATION --New-onset --Episodes of atrial fibrillation noted while in telemetry --Echo performed with preserved EF no ASD, no significant valvular disease --Evaluated by application development director Dr. Leyva Recommend atenolol 25 mg p.o. daily and apixaban 5 mg twice daily Cardiology clinic will be calling her for an appointment in about 2 weeks HYPERTENSIVE URGENCY In the setting of acute CVA Blood pressure gradually decreased Atenolol dose reduced from 50 to 25 mg p.o. daily at this time, his heart rate is in the low 60s Monitor blood pressure and heart rate as an outpatient on follow-up DYSLIPIDEMIA LDL 80 Triglyceride 100 --Continue simvastatin 40 mg daily CHRONIC MIGRAINE --Patient is continued on her usual Fioricet Headache improving GERD sp surgery Stable Disposition Discharge to home Follow up with primary care physician in 3-5 days Follow-up with application development director Dr. Leyva in 2 weeks Follow-up with neurologist Dr. Saini in 3 weeks Current Inpatient Medications: Current Inpatient Medications Medications (Trade) Dose Ordered Sig/Priyanka Route Start Time Stop Time Status Last Admin Dose Admin Acetaminophen (Tylenol Tab) 650 mg Q4H PRN PO 04/02/18 23:30 05/02/18 23:29 Lorazepam (Ativan Inj) 0.25 mg Q4H PRN IV 04/02/18 23:30 05/02/18 23:29 Nitroglycerin (Nitrostat Tab) 0.4 mg UD PRN SL 04/02/18 23:30 05/02/18 23:29 Miscellaneous Information (Pharmacist Discharge Med Rec Consult) 1 ea UD PRN N/A 04/02/18 23:30 05/02/18 23:29 Quetiapine Fumarate (seroQUEL TAB) 25 mg HS PO 04/03/18 21:00 05/03/18 20:59 04/05/18 21:02 25 MG Tramadol HCl (Ultram Tab) 25 mg Q6H PRN PO 04/02/18 23:30 05/02/18 23:29 04/05/18 21:02 25 MG Prochlorperazine Edisylate 5 mg/ Syringe 5 ml @ 5 mls/min Q6H PRN IV 04/02/18 23:30 05/02/18 23:29 Pantoprazole Sodium (Protonix Tab) 40 mg QAM PO 04/03/18 09:00 05/03/18 08:59 04/06/18 07:59 40 MG Simvastatin (Zocor Tab) 40 mg PM PO 04/03/18 21:00 05/03/18 20:59 04/05/18 21:02 40 MG Aspirin (Ecotrin Tab) 81 mg QAM PO 04/04/18 09:00 05/04/18 08:59 04/06/18 07:59 81 MG Tramadol HCl (Ultram Tab) 50 mg Q4H PRN PO 04/03/18 17:15 05/03/18 17:14 Morphine Sulfate (MoRPHine SULFATE INJ) 2 mg Q4H PRN IV 04/03/18 17:15 04/17/18 17:14 Butalbital/ Aspirin/Caffeine/ Codeine (Fiorinal W/ Codeine Cap) 1 cap 3XDQ4 PRN PO 04/04/18 11:45 05/04/18 11:44 04/06/18 08:24 1 CAP Atenolol (Tenormin Tab) 25 mg QAM PO 04/06/18 09:00 05/04/18 08:59 04/06/18 07:59 25 MG Apixaban (Eliquis Tab) 5 mg BID PO 04/05/18 21:00 05/05/18 20:59 04/06/18 07:59 5 MG Clonidine HCl (Catapres Tab) 0.1 mg Q6H PRN PO 04/05/18 15:30 05/05/18 15:29
[2018-04-06] MEDS ORDERED: TNR25 PO (12:15)
[2018-04-06] MEDS ORDERED: ELQ25 PO (12:15)
--- NOTE | 2018-04-06 12:19 | Discharge Instructions ---
Discharge Instructions Date of Service April 06, 2018. Admission Reason for Admission: CVA Discharge Discharge Diagnosis / Problem: ACUTE STROKE Discharge Goals Goal(s): Diagnostic testing, Therapeutic intervention Activity Recommendations Activity Limitations: as noted below (No heavy exertion until reevaluated by primary care physician) Lifting Limitations: until after follow-up appointment Exercise/Sports Limitations: until after follow-up appointment Driving or Machine Use: No driving until reevaluated by primary care physician . Instructions / Follow-Up Instructions / Follow-Up Please refer to your new medication list and follow instructions carefully. You are now taking a new blood thinner called Eliquis. Always be careful with ambulating. History of minor bleeding please call your primary care physician immediately. If you have any major bleeding or head trauma, please return to the emergency room immediately for urgent evaluation. If you have any questions about your medications please call your doctor right away. Current Hospital Diet Patient's current hospital diet: AHA Diet (Heart Healthy) Laboratory Results Lipid Panel Test 04/03/18 04:06 Range/Units Triglycerides Level 100 0-150 mg/dl Cholesterol Level 162 0-200 mg/dl HDL Cholesterol 62 mg/dl Cholesterol/HDL Ratio 2.6 LDL Cholesterol, Calculated 80 mg/dl Medical Emergencies . Who to Call and When: Medical Emergencies: If at any time you feel your situation is an emergency, please call 911 immediately. . Non-Emergent Contact . . "Provider Documentation" section prepared by Myles Donaldson. .
--- NOTE | 2018-04-06 12:31 | Discharge Instructions ---
Discharge Instructions Date of Service April 06, 2018. Admission Reason for Admission: CVA Discharge Discharge Diagnosis / Problem: Acute stroke Discharge Goals Goal(s): Diagnostic testing, Therapeutic intervention Activity Recommendations Activity Limitations: as noted below (No heavy exertion until reevaluated by primary care physician) Lifting Limitations: until after follow-up appointment Exercise/Sports Limitations: until after follow-up appointment Driving or Machine Use: No driving until reevaluated by primary care physician . Instructions / Follow-Up Instructions / Follow-Up Please review new medication list and follow instructions carefully You are now on a new blood thinner called Eliquis. If you have minor bleeding, call your primary care doctor immediately for advice. If you have any major bleeding or have any head trauma, please return to the emergency room immediately for urgent evaluation. Follow-up with Dr. Tomlin, associate of Dr. Barth, on March at 10:45 AM. Follow up with Route Relief Driver Dr. Leyva in 2 weeks. The clinic will call you for the appointment. Follow up with Neurologist Dr. Saini in 3 weeks. Please call the clinic for an appointment. . Who to Call and When: Medical Emergencies: Call 911 immediately if you experience any of the following warning signs and symptoms of Stroke: * Sudden numbness or weakness of the face, arm or leg, especially on one side of the body * Sudden confusion, trouble speaking or understanding * Sudden trouble seeing in one or both eyes * Sudden trouble walking, dizziness, loss of balance or coordination * Sudden severe headache with no cause Do not delay calling 911 if you experience any warning signs or symptoms of a stroke. Delay in seeking medical attention may affect what treatments can be given to you. Risk Factors for Stroke: You can reduce your chances of stroke by working with your medical provider to adopt a healthy lifestyle. Some specific ways to lower your chance of stroke are: * If you are a smoker, now is the time to stop smoking cigarettes * If you are diabetic, improve the control of your blood sugars * Avoid excessive amounts of alcohol * Control high blood pressure * Lose weight if you are overweight * Be sure to lead an active lifestyle * Eat a healthy diet low in salt, cholesterol and fat You should know about other risk factors for stroke that you are unable to control. These include: * Age 55 years or older * Male gender * Certain racial groups: , or / * Family History of Stroke, Mini stroke or Heart Attack * Sickle Cell Disease Follow Up: It is important for you to keep your follow up appointments with your medical provider. Current Hospital Diet Patient's current hospital diet: AHA Diet (Heart Healthy) Discharge Diet Recommended Diet: AHA Diet (Heart Healthy) Procedures Procedures Performed: BRAIN MRI, BRAIN CT SCAN, ECHOCARDIOGRAM Pending Studies Studies pending at discharge: no Laboratory Results Lipid Panel Test 04/03/18 04:06 Range/Units Triglycerides Level 100 0-150 mg/dl Cholesterol Level 162 0-200 mg/dl HDL Cholesterol 62 mg/dl Cholesterol/HDL Ratio 2.6 LDL Cholesterol, Calculated 80 mg/dl Medical Emergencies . Who to Call and When: Medical Emergencies: Call 911 immediately if you experience any of the following warning signs and symptoms of Stroke: * Sudden numbness or weakness of the face, arm or leg, especially on one side of the body * Sudden confusion, trouble speaking or understanding * Sudden trouble seeing in one or both eyes * Sudden trouble walking, dizziness, loss of balance or coordination * Sudden severe headache with no cause Do not delay calling 911 if you experience any warning signs or symptoms of a stroke. Delay in seeking medical attention may affect what treatments can be given to you. . Non-Emergent Contact Non-Emergency issues call your: Primary Care Provider, Neurologist Call Non-Emergent contact if: you have a fever, your pain is not controlled, your pain is worsening, you have any medication questions . . "Provider Documentation" section prepared by Myles Donaldson. . Stroke Core Measures Reason no t-PA for Stroke: Treatment provided - N/A Reason no antithrom by day 2: Treatment provided - N/A Reason no antithrom at D/C: Treatment not indicated Reason no statin at D/C: Treatment provided - N/A Reason no anticoag w/a fib: Treatment provided - N/A
--- NOTE | 2018-04-06 12:38 | Discharge Summary ---
Discharge Summary Date of Service April 06, 2018. Discharge Summary Admission Date: April 02, 2018 at 22:40 Discharge Date: April 06, 2018 Discharge Disposition: Home Principal Diagnosis: ACUTE CEREBROVASCULAR ACCIDENT; BILATERAL FRONTAL LOBE INFARCT Secondary Diagnoses/Problems: Please refer to hospital course below. Procedures: BRAIN WITHOUT CONTRAST CLINICAL HISTORY: 72 years-old Female presenting with Stroke, left facial droop, favoring the left side, status post TPA on 04/02/2018 at 10:00 PM. TECHNIQUE: Multisequence, multiplanar MR imaging of the brain was performed without the use of intravenous contrast. IV contrast: None. COMPARISON: Noncontrast CT head from the previous day. FINDINGS: Ventricles and sulci normal in size. Restricted diffusion consistent with acute infarct in the right frontal lobe. There is associated T1 hypointensity and T2/FLAIR hyperintensity with sulcal effacement in this distribution. Additional acute lacunar infarct in the white matter of the left posterior frontal lobe (series 4 image 17). No mass effect or midline shift. No hemorrhage. No extra-axial fluid collection. T2 skull base flow voids preserved. Bilateral cocopah lenses are absent. Bone marrow signal intensity within the calvarium within normal limits. IMPRESSION: 1. Acute infarct in the right frontal lobe. This is over 6 to 12 hours old by the presence of T2/FLAIR hyperintensity. No hemorrhagic conversion. 2. Acute lacunar infarct in the white matter of the left posterior frontal lobe. This additional finding could raise concern for emboli though this is considered less likely. MRA HEAD WITHOUT CONTRAST CLINICAL HISTORY: 72 years-old Female presenting with stroke, status post TPA yesterday at 04/02/2018 at 10pm, left facial droop, favoring left side. TECHNIQUE: MR angiography of the head was performed without the use of intravenous contrast using 3-D [id number] technique. 3-D volumetric and/or maximum intensity projection (MIP) images were subsequently reconstructed for review. IV contrast: None. COMPARISON: None. FINDINGS: Anterior circulation: Intracranial portions of the internal carotid arteries patent to the level of the termini. Anterior and middle cerebral arteries patent. Anterior communicating artery patent. Posterior circulation: Codominant vertebral arteries. Intradural portions of the vertebral arteries patent. Posterior inferior cerebellar arteries patent. Basilar artery patent. Anterior inferior cerebellar arteries poorly visualized. Superior cerebellar and posterior cerebral arteries patent. Posterior communicating artery patent on the left and hypoplastic or aplastic on the right. IMPRESSION: 1. No significant stenosis, aneurysm, or focal vessel occlusion. CHEST ONE VIEW PORTABLE CLINICAL HISTORY: 72 years-old Female presenting with cva. TECHNIQUE: AP view of the chest was obtained. COMPARISON: 11/19/2017. FINDINGS: Cardiomediastinal silhouette normal. Mildly low lung volumes. No focal opacity. No large effusion or pneumothorax. Osseous structures normal. Cholecystectomy clips noted. Multiple external leads project over the right hemithorax and abdomen degrading evaluation in these regions. IMPRESSION: 1. No acute cardiopulmonary disease CAROTID DOPPLER NECK ART CLINICAL HISTORY: 72 years-old Female presenting with stroke. TECHNIQUE: Real-time grayscale and color and spectral Doppler ultrasound imaging of the bilateral carotid arteries was performed. NASCET criteria was used in evaluating this study. COMPARISON: None. FINDINGS: Right: Common carotid: Atherosclerosis at the carotid bulb. Peak systolic velocity 85 cm/s. Internal carotid artery: Patent. Peak systolic velocity 74 cm/s. Systolic ratio: 0.9. External carotid artery: Patent. Peak systolic velocity 102 cm/s. Left: Common carotid: Atherosclerosis at the carotid bulb. Peak systolic velocity 71 cm/s. Internal carotid artery: Tortuous but patent. Peak systolic velocity 110 cm/s. Systolic ratio: 1.6. External carotid artery: Patent. Peak systolic velocity 85 cm/s. Bilateral antegrade flow within the vertebral arteries. Reference ranges: Stenosis measurements are compared to reference velocity parameters. Primary parameters: ICA peak systolic velocity (PSV) < 125 cm/s normal or indicating < 50% stenosis; ICA PSV 125-230 cm/s equivalent to 50-69% stenosis; ICA PSV > 230 cm/s equivalent to greater than or equal to 70% stenosis. Additional parameters: ICA PSV to common carotid artery PSV ratio < 2 normal or < 50% stenosis; 2-4 equates to 50-69% stenosis, > 4 equates to greater than or equal to 70% stenosis. Normal ICA end-diastolic velocity less than 40. Blood pressure: Not performed. IMPRESSION: Atherosclerosis without hemodynamically significant stenosis in the carotid arteries. ECHO: * -- Conclusions -- * The left ventricle is normal in size. * There is borderline concentric left ventricular hypertrophy. * The left ventricular wall motion is normal. * Left ventricular systolic function is normal. * Ejection Fraction = 60-65%. * The mitral valve leaflets are mildly thickened * There is mild mitral regurgitation. * There is trace tricuspid regurgitation. * The interatrial septum is intact with no evidence for an atrial septal defect. * Injection of contrast documented no interatrial shunt. Consultations: NEUROLOGIST DR. SYED, SENIOR MAINFRAME DEVELOPER DR. LEYVA Pending Studies/Follow-Up: Please refer to hospital course below. Medication Reconciliation New Medications: Atorvastatin (Lipitor) 40 Mg Tab 1 TAB PO HS for 30 Days, #30 TAB 2 Refills Apixaban (Eliquis) 2.5 Mg Tab 5 MG PO BID for 30 Days, #120 TAB 2 Refills Atenolol (Atenolol) 25 Mg Tab 25 MG PO QAM for 30 Days, #30 TAB 2 Refills Continued Medications: Quetiapine Fumarate (Seroquel) 25 Mg Tab 25 MG PO HS, TAB [But/APAP/CAF-CODEINE] () 1 CAP PO DAILY PRN for Migraine Discontinued Medications: Aspirin (Aspirin Ec) 81 Mg Tab 81 MG PO QAM Atenolol (Tenormin) 50 Mg Tab 50 MG PO DAILY, TAB Admission Information HPI (per Admitting provider): DATE OF ADMISSION: 04/02/2018 PRIMARY CARE PHYSICIAN: Dr. Barth. CHIEF COMPLAINT: Slurred speech, facial droop as per records. HISTORY OF PRESENT ILLNESS: History obtained from patient and records. Medical history is significant for hypertension, hyperlipidemia, hypothyroidism , chronic migraine, GERD sp surgery. Recent confinement October 2017 for aspiration pneumonitis. Around 7:00 p.m. at home, had just come back from a wedding from [place] when her heard a noise. Patient noted to have slurred speech, left-sided facial droop noted. Usual posterior migraine headache symptoms. No chest pain, no shortness of breath. Patient is compliant with home aspirin which she takes because of family history of strokes and heart disease.. Patient brought to the Emergency Room. Stroke alert called. Patient subsequently given TPA. MEDICAL HISTORY: As above. Seen by [facility] surgeon a few days ago for persistent heartburn symptoms despite surgery. Plan is repeat UGI series outpatient; nocturnal Prilosec as per notes. SURGERIES: She has had paraesophageal hernia repair in 2015, hysterectomy. HOME MEDICATIONS: Include aspirin, levothyroxine, atenolol, butalbital, Seroquel, Zocor. ALLERGIES: No known drug allergies. FAMILY HISTORY: Stroke and heart disease. PERSONAL AND SOCIAL HISTORY: Nonsmoker, nondrinker. 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 REVIEW OF SYSTEMS: As per HPI, all 10 systems reviewed. All other ROS negative. Physical Exam (per Admitting): VITAL SIGNS: Blood pressure was noted to be 170/64, pulse rate 71, RR 17, temperature 37.3, sats 98 on room air. GENERAL: Noted to be slightly anxious, no respiratory distress, obese. SKIN: Normal color, warm. HEENT: Hindman palpebral conjunctivae, no ptosis. Facial asymmetry. NECK: Short, supple. CHEST: Clear to auscultation. No tenderness. HEART: RRR, No murmur. ABDOMEN: Some distention, nontender. EXTREMITIES: No LE edema. No tenderness. No gross deformities. NEUROLOGIC: Coherent with preferential gaze to the right, facial droop on the left. Equal MMTs. Gait and stance not assessed. Hospital Course 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 Syed -- was already taking ASA, Plavix initially added Already simvastatin 40 mg daily --April 04, 2018 Noted to have episodes of atrial fibrillation while in telemetry Already on atenolol, continued but atenolol has been reduced to to 25 mg p.o. daily to avoid hypotension and bradycardia Aspirin and the newly added Plavix discontinued, started on Apixaban 5 mg twice a day Simvastatin changed to Atorvastatin 40mg po daily -- patient back to baseline on discharge day, ambulating well, except for very mild left facial droop and left sided drift Discharge plan: Atenolol 25 mg p.o. daily Apixaban 5 mg twice a day Atorvastatin 40mg po daily Follow-up with neurologist Dr. Syed in 3 weeks Patient has been counseled regarding apixaban and increased bleeding risk Precautions given and was advised to return to the ER immediately if with any head trauma or significant bleeding Also discussed about stroke symptoms and calling 911 immediately if such symptoms Patient and his verbalized understanding NEWLY DIAGNOSED PAROXYSMAL ATRIAL FIBRILLATION --New-onset --Episodes of atrial fibrillation noted while in telemetry --Echo performed with preserved EF no ASD, no significant valvular disease --Evaluated by stock sheets cleaner inspector Dr. Leyva Recommend atenolol 25 mg p.o. daily and apixaban 5 mg twice daily Cardiology clinic will be calling her for an appointment in about 2 weeks HYPERTENSIVE URGENCY In the setting of acute CVA Blood pressure gradually decreased Atenolol dose reduced from 50 to 25 mg p.o. daily at this time, his heart rate is in the low 60s Monitor blood pressure and heart rate as an outpatient on follow-up DYSLIPIDEMIA LDL 80 Triglycerides 100 --Continue simvastatin 40 mg daily CHRONIC MIGRAINE --Patient is continued on her usual Fioricet Headache improving GERD sp surgery Stable Disposition Discharge to home Follow up with primary care physician in 3-5 days Follow-up with stock sheets cleaner inspector Dr. Leyva in 2 weeks Follow-up with neurologist Dr. Syed in 3 weeks Total time spent on discharge = 40 minutes This includes examination of the patient, discharge planning, medication reconciliation, and communication with other providers. Discharge Instructions Discharge Instructions Date of Service April 06, 2018. Admission Reason for Admission: CVA Discharge Discharge Diagnosis / Problem: Acute stroke Discharge Goals Goal(s): Diagnostic testing, Therapeutic intervention Activity Recommendations Activity Limitations: as noted below (No heavy exertion until reevaluated by primary care physician) Lifting Limitations: until after follow-up appointment Exercise/Sports Limitations: until after follow-up appointment Driving or Machine Use: No driving until reevaluated by primary care physician . Instructions / Follow-Up Instructions / Follow-Up Please review new medication list and follow instructions carefully You are now on a new blood thinner called Eliquis. If you have minor bleeding, call your primary care doctor immediately for advice. If you have any major bleeding or have any head trauma, please return to the emergency room immediately for urgent evaluation. Follow-up with Dr. Tmolin, associate of Dr. Barth, on March at 10:45 AM. Follow up with Rn Acute Dr. Leyva in 2 weeks. The clinic will call you for the appointment. Follow up with Neurologist Dr. Syed in 3 weeks. Please call the clinic for an appointment. . Who to Call and When: Medical Emergencies: Call 911 immediately if you experience any of the following warning signs and symptoms of Stroke: * Sudden numbness or weakness of the face, arm or leg, especially on one side of the body * Sudden confusion, trouble speaking or understanding * Sudden trouble seeing in one or both eyes * Sudden trouble walking, dizziness, loss of balance or coordination * Sudden severe headache with no cause Do not delay calling 911 if you experience any warning signs or symptoms of a stroke. Delay in seeking medical attention may affect what treatments can be given to you. Risk Factors for Stroke: You can reduce your chances of stroke by working with your medical provider to adopt a healthy lifestyle. Some specific ways to lower your chance of stroke are: * If you are a smoker, now is the time to stop smoking cigarettes * If you are diabetic, improve the control of your blood sugars * Avoid excessive amounts of alcohol * Control high blood pressure * Lose weight if you are overweight * Be sure to lead an active lifestyle * Eat a healthy diet low in salt, cholesterol and fat You should know about other risk factors for stroke that you are unable to control. These include: * Age 55 years or older * Male gender * Certain racial groups: , or / * Family History of Stroke, Mini stroke or Heart Attack * Sickle Cell Disease Follow Up: It is important for you to keep your follow up appointments with your medical provider. Current Hospital Diet Patient's current hospital diet: AHA Diet (Heart Healthy) Discharge Diet Recommended Diet: AHA Diet (Heart Healthy) Procedures Procedures Performed: BRAIN MRI, BRAIN CT SCAN, ECHOCARDIOGRAM Pending Studies Studies pending at discharge: no Laboratory Results Lipid Panel Test 04/03/18 04:06 Range/Units Triglycerides Level 100 0-150 mg/dl Cholesterol Level 162 0-200 mg/dl HDL Cholesterol 62 mg/dl Cholesterol/HDL Ratio 2.6 LDL Cholesterol, Calculated 80 mg/dl Medical Emergencies . Who to Call and When: Medical Emergencies: Call 911 immediately if you experience any of the following warning signs and symptoms of Stroke: * Sudden numbness or weakness of the face, arm or leg, especially on one side of the body * Sudden confusion, trouble speaking or understanding * Sudden trouble seeing in one or both eyes * Sudden trouble walking, dizziness, loss of balance or coordination * Sudden severe headache with no cause Do not delay calling 911 if you experience any warning signs or symptoms of a stroke. Delay in seeking medical attention may affect what treatments can be given to you. . Non-Emergent Contact Non-Emergency issues call your: Primary Care Provider, Neurologist Call Non-Emergent contact if: you have a fever, your pain is not controlled, your pain is worsening, you have any medication questions . . "Provider Documentation" section prepared by Myles Donaldson. . Stroke Core Measures Reason no t-PA for Stroke: Treatment provided - N/A Reason no antithrom by day 2: Treatment provided - N/A Reason no antithrom at D/C: Treatment not indicated Reason no statin at D/C: Treatment provided - N/A Reason no anticoag w/a fib: Treatment provided - N/A
[2018-04-06 12:59] VITALS: BP 154/63; PULSE 56; TEMP 36.8; O2SAT 98
[2018-04-06] MEDS ORDERED: LPT40 PO (13:11)
--- NOTE | 2018-04-06 13:51 | Pharmacy Progress Note ---
Pharmacist Stroke Counseling Date of Service April 06, 2018. Scope Pharmacy has been consulted to provide medication discharge counseling for this patient admitted with ischemic stroke attack as per the Pharmacist Discharge Counseling for Stroke Patients Protocol. Medications on Discharge New Medications: Atorvastatin (Lipitor) 40 Mg Tab 1 TAB PO HS for 30 Days, #30 TAB 2 Refills Apixaban (Eliquis) 2.5 Mg Tab 5 MG PO BID for 30 Days, #120 TAB 2 Refills Atenolol (Atenolol) 25 Mg Tab 25 MG PO QAM for 30 Days, #30 TAB 2 Refills Continued Medications: Quetiapine Fumarate (Seroquel) 25 Mg Tab 25 MG PO HS, TAB [But/APAP/CAF-CODEINE] () 1 CAP PO DAILY PRN for Migraine Discontinued Medications: Aspirin (Aspirin Ec) 81 Mg Tab 81 MG PO QAM Atenolol (Tenormin) 50 Mg Tab 50 MG PO DAILY, TAB Action The above medications, specifically ones for stroke treatment/prophylaxis, have been reviewed in detail with the patient prior to discharge. This includes indication, common adverse reactions, and medication administration. Outcome The patient has demonstrated understanding of the medications. Please note, they are aware that the pharmacist will call them within 72 hours post-discharge to confirm that the appropriate medications are being taken and answer any further medication related questions the patient might have at that time. Contact information Individual to be contacted: Carmela Phone number: Best time to call: anytime after 0900 Additional comments: - Spoke with Carmela r/e switch from simvastatin to atorvastatin, decrease in atenolol dose, and initiation of apixaban - Reviewed the "Medications to Prevent Stroke" handout in her discharge packet - Counseled on s/sx bleeding including but not limited to aleksandar red blood, black /tarry stool, orange urine, and severe headache - Counseled that Carmela should contact her provider if she ever falls, especially if she hits her head - Carmela wanted to confirm that her aspirin was to be discontinued. I spoke with her RN (Adeola) who confirmed that Dr. Leyva wanted her aspirin discontinued. Thank you for allowing pharmacy to be involved in the care of this patient. Please call [phone] or [phone] with any additional questions
--- NOTE | 2018-04-09 09:15 | Pharmacy Progress Note ---
Pharmacist Post D/C Phone Note Date of phone call: April 09, 2018. The patient and/or patient representative personal service(s) were unable to be reached for a follow-up phone call within the 72 hour time frame. Discharge counseling pharmacist contact information has already been provided to the patient should questions arise. Thank you for allowing us to be involved in the care of this patient.
== END 2018-04-06 14:17 | disposition home or self-care (01) | DRG 65 ==
LOC: C.EDB 20:46 → C.MSICU 22:40 → ENRESERV 22:46 → C.2E 04-04 12:25
PROVIDERS: ADMIT Internal Medicine; ATTEND Internal Medicine
DX: I63.10 Cerebral infarction due to embolism of unspecified precerebral artery (principal); R41.4 Neurologic neglect syndrome; R29.810 Facial weakness; R47.81 Slurred speech; H51.0 Palsy (spasm) of conjugate gaze; H53.462 Homonymous bilateral field defects, left side; I48.0 Paroxysmal atrial fibrillation; I16.0 Hypertensive urgency; I10 Essential (primary) hypertension; G43.911 Migraine, unspecified, intractable, with status migrainosus; E78.5 Hyperlipidemia, unspecified; E06.3 Autoimmune thyroiditis; K21.9 Gastro-esophageal reflux disease without esophagitis; G47.00 Insomnia, unspecified; F32.9 Major depressive disorder, single episode, unspecified; Z82.3 Family history of stroke; Z82.49 Family history of ischemic heart disease and other diseases of the circulatory system; Z79.82 Long term (current) use of aspirin; Z79.899 Other long term (current) drug therapy

== ENCOUNTER → 2018-06-23 | Outpatient (CLI) | payer OTHER ==
[~2018-06-23] MED LIST changes: +APIX1TAB3 PO; -ASPI81TA28 PO; -ATEN50TA8 PO; +ATOR-24 PO; +BUTA-240 PO; -BUTA1CAP17 PO; +CHOL2000 PO; -CHOL200010 PO; -ESTR0.3T PO; -SIMV40TA4 PO; +SYN50 PO; -THY/30 PO; +TNR25 PO; -VNTHFA/IN INH
--- NOTE | 2018-06-24 07:57 | MAMMOGRAPHY REPORT ---
BILATERAL DIGITAL SCREENING MAMMOGRAM TOMOSYNTHESIS WITH CAD: 06/23/2018 CLINICAL HISTORY: Routine screening. Patient has no complaints. TECHNIQUE: The study was acquired using full field digital technology and interpreted from soft copy. Breast tomosynthesis in addition to standard 2D mammography was performed. Current study was also ev aluated with a Computer Aided Detection (CAD) system. COMPARISON: Comparison is made to exams dated: 01/15/2018 mammogram, 07/08/2017 mammogram, 07/01/2017 eddie mogram, 06/17/2017 mammogram, 06/11/2016 mammogram, and 06/08/2015 mammogram - [facility]. BREAST COMPOSITION: There are scattered areas of fibroglandular density in both breasts. FINDINGS: No suspicious masses, calcifications, or areas of architectural distortion are noted in either breast . There has been no significant interval change compared to prior exams. Scattered bilateral benign-a ppearing calcifications are not significantly changed. A biopsy clip is again noted within the left superior breast. Bilateral benign-appearing masses/asymmetries are stable. IMPRESSION: ACR BI-RADS CATEGORY 2: BENIGN There is no mammographic evidence of malignancy. A 1 year screening mammogram is recommended.( [id number]) The patient will receive written notification of the results. Some breast cancers are not detected with mammography. A negative mammographic report should not danilo y biopsy if a clinically suggestive mass is present. Jenn Dick M.D. /:06/23/2018 11:45:03 Cosmetician: RT Darlene(Maria Guadalupe)(M), [facility] letter sent: Normal 1/2 BI-RADS Code: ACR BI-RADS Category 2: Benign
== END | disposition home or self-care (01) ==
LOC: C.MAMM 09:53
PROVIDERS: ATTEND Physician Assistant
DX: Z12.31 Encounter for screening mammogram for malignant neoplasm of breast (principal)

== ENCOUNTER 2019-05-02 13:18 | Inpatient (IN) ==
[2019-05-02] MEDS ORDERED: METOPROLOL TARTRATE 1 MG/ML VIAL IV STA (13:39)
[2019-05-02] MEDS ORDERED: SODIUM CHLORIDE 0.9% 500 ML IV SCH (13:45)
[2019-05-02 13:53] LABS: Basophils # (auto) 0.09 K/uL (0-0.2); Basophils % (auto) 0.9 %; Eosinophils # (auto) 0.51 K/uL (0-0.5); Eosinophils % (auto) 5.1 %; Hematocrit (blood only) 41.4 % (37-47); Hemoglobin 13.9 g/dL (12.0-16.0); Immature Granulocytes # (auto) 0.02 K/uL (0.00-0.02); Immature Granulocytes % (auto) 0.2 %; Lymphocytes # (auto) 3.24 K/uL (1.2-3.4); Lymphocytes % (auto) 32.4 %; Mean Corpuscular Hgb Conc 33.6 g/dL (32-36); Mean Corpuscular Volume 95.6 fL (80-100); Mean Platelet Volume 10.1 fL (7.4-10.4); Neutrophils # (auto) 5.13 K/uL (1.4-6.5); Neutrophils % (auto) 51.4 %; Platelet Count 238 K/uL (130-400); RDW Coefficient of Variation 14.4 % (11.5-14.5); RDW Standard Deviation 49.8 fL (36.4-46.3); Red Blood Count 4.33 M/uL (4.2-5.4); White Blood Count 9.99 K/uL (4.8-10.8)
--- NOTE | 2019-05-02 13:55 | XRay Report ---
XR chest 1V portable HISTORY: 73 years-old Female Chest Pain acute atypical chest pain with shortness of breath COMPARISON: Chest radiograph 01/31/2019 TECHNIQUE: Portable AP view of the chest FINDINGS: Cardiac silhouette is enlarged. Mild pulmonary vascular congestion. Subsegmental bibasilar opacities are noted. There is mild blunting of the costophrenic angles. No pneumothorax or large pleural effusi on. Mild degenerative changes of the shoulders and spine. IMPRESSION: 1. Cardiomegaly with mild pulmonary vascular congestion. 2. Bibasilar opacities suggest atelectasis or pneumonitis. 3. Possible trace pleural effusions. The above report was generated using voice recognition software. It may contain grammatical, syntax o r spelling errors. Electronically signed by: Shakir Fernandez M.D. 05/02/2019 1:53 PM
[2019-05-02 14:13] LABS: Alanine Aminotransferase 42 U/L (12-78); Albumin Level 3.8 gm/dl (3.4-5.0); Aspartate Aminotransferase 27 U/L (15-37); BUN Creatinine Ratio 13.8 (10-20); Blood Urea Nitrogen 13 mg/dl (7-18); Calcium 9.1 mg/dl (8.5-10.1); Carbon Dioxide 25 mmol/L (21-32); Chloride 107 mmol/L (98-107); Creatinine Clr Calc Pharmacy 51.4 ml/min; Est GFR (African American) 67.5; Est GFR (Non-African American) 58.3; Glucose 110 mg/dl (70-99); Sodium 141 mmol/L (136-145)
[2019-05-02 14:24] LABS: Albumin Globulin Ratio 1.1 (0.9-2); Alkaline Phosphatase 99 U/L (45-117); Bilirubin,Total 0.5 mg/dl (0.2-1); Globulin 3.5 gm/dl (2.5-4.0); Total Protein 7.3 gm/dl (6.4-8.2); Troponin I < 0.015 ng/ml (0-0.045)
[2019-05-02 14:37] LABS: T4 Free Thyroxine 0.99 ng/dl (0.8-1.6)
[2019-05-02] MEDS ORDERED: dilTIAZem HCl 5 MG/ML 5 ML VIAL IV STA (15:35)
--- NOTE | 2019-05-02 15:38 | Emergency Department Note ---
Entered by Aurora Sheth acting as a scribe for Carrillo Stacy DO History of Present Illness General Chief complaint: Arrhythmia/Palpitations Stated complaint: SHORT OF BREATH-IRREGULAR HEARTBEAT Time Seen by Provider: 05/02/19 13:33 Source: patient History of Present Illness Provider complaint: shortness of breath Onset (ago): day(s) 5 Location: chest Pain Consistency: + intermittent Quality: + other (shortness of breath ) Associated symptoms: + denies other symptoms (leg swelling), + chest pain (tightness with exertion) and + other (congestion, wheezing) The patient is a 73 year old female who presents to the Emergency Department with complaints of intermittent shortness of breath over the last 5 days. She states that she can hardly walk from her bedroom to the bathroom without getting short of breath. She denies any recent trips, surgeries, and immobilizations. The patient states that she is on Eliquis for a history of atrial fibrillation. The patient does report having congestion, chest tightness with exertion, and wheezing last night. She denies noticing any swelling in her legs. Home Medications Home Medications Medication Instructions Recorded Confirmed Type Eliquis 5 mg PO AMPM 09/17/18 05/02/19 History atenolol 50 mg PO DAILY 09/17/18 05/02/19 History atorvastatin 40 mg PO HS 09/17/18 05/02/19 History blzhakwlaq-rwsrtkxlln-pjc-cod 1 tab PO DAILY 09/17/18 05/02/19 History cholecalciferol (vitamin D3) 5,000 unit PO DAILY 09/17/18 05/02/19 History [Vitamin D3] quetiapine [Seroquel] 25 mg PO HS 09/17/18 05/02/19 History thyroid (pork) [[place] Thyroid] 60 mg PO Q OTHER DAY 09/17/18 05/02/19 History Allergies Allergy/AdvReac Type Severity Reaction Status Date / Time adhesive AdvReac Mild mahmood Unverified 05/02/19 14:07 Past Med/Surg History Medical History Atrial fibrillation History of stroke Depression (Chronic) HLD (hyperlipidemia) (Chronic) HTN (hypertension) (Chronic) Bill's thyroiditis (Chronic) Hypothyroidism (Chronic) Migraines (Chronic) Surgical History Hx of cataract surgery Social History Feels Safe at Home: Yes Smoking Status: Never smoker Review of Systems See HPI for pertinent positives & negatives. and A total of 10 systems reviewed and were otherwise negative Physical Exam Vital Signs Vital Signs - 24 hr 05/02/19 13:22 05/02/19 13:41 05/02/19 13:42 Temperature 36.3 C L Temperature Source Oral Sepsis Recent Fever Within 48 Hours No Sepsis New/Unexplained Change in Mental Status No Sepsis Action Taken by Nursing No Action Required Pulse Rate 94 H 120 H Pulse Rate [Finger] 118 H Pulse Rate from SpO2 Sensor Respiratory Rate 20 18 Respiratory Effort / Characteristics Non-Labored Spontaneous Respiratory Depth Normal Respiratory Pattern Regular Blood Pressure 146/95 H Blood Pressure [Left Arm] 181/108 H Blood Pressure Mean 112 Blood Pressure Mean [Left Arm] 132 Blood Pressure Position Sitting Pulse Oximetry 95 94 94 Oxygen Delivery Method Room Air Room Air 05/02/19 14:00 05/02/19 14:26 05/02/19 14:30 Temperature Temperature Source Sepsis Recent Fever Within 48 Hours Sepsis New/Unexplained Change in Mental Status Sepsis Action Taken by Nursing Pulse Rate 115 H 138 H 113 H Pulse Rate [Finger] 125 H Pulse Rate from SpO2 Sensor 80 109 H 90 Respiratory Rate 22 24 20 Respiratory Effort / Characteristics Respiratory Depth Respiratory Pattern Blood Pressure 129/104 H Blood Pressure [Left Arm] 129/104 H Blood Pressure Mean 112 Blood Pressure Mean [Left Arm] 112 Blood Pressure Position Pulse Oximetry 94 93 93 Oxygen Delivery Method Room Air 05/02/19 14:32 Temperature Temperature Source Sepsis Recent Fever Within 48 Hours Sepsis New/Unexplained Change in Mental Status Sepsis Action Taken by Nursing Pulse Rate 120 H Pulse Rate [Finger] Pulse Rate from SpO2 Sensor 100 H Respiratory Rate 20 Respiratory Effort / Characteristics Respiratory Depth Respiratory Pattern Blood Pressure 151/100 H Blood Pressure [Left Arm] Blood Pressure Mean 117 Blood Pressure Mean [Left Arm] Blood Pressure Position Pulse Oximetry 91 Oxygen Delivery Method Room Air CONSTITUTIONAL/VITAL SIGNS: Reviewed / noted above. GENERAL: Non-toxic in appearance. INTEGUMENTARY: Warm, dry, and [place]. HEAD: Normocephalic. EYES: without scleral icterus or trauma. ENT/OROPHARYNX: clear and moist. LYMPHADENOPATHY/NECK: Is supple without lymphadenopathy or meningismus. RESPIRATORY: Lungs clear and equal. CARDIOVASCULAR: Tachycardic rate. Irregular rhythm. GI/ABDOMEN: Soft and nontender. No organomegaly or pulsatile mass. No rebound or guarding. Normal bowel sounds. EXTREMITIES: Warm and well perfused. BACK: No CVA tenderness. NEUROLOGICAL: Intact without focal deficits. PSYCHIATRIC: normal affect. MUSCULOSKELETAL: Normally developed with good muscle tone. Course 1335: The patient was evaluated in room C1B. A history and physical were performed. 1528: I updated the patient who verbalized agreement and understanding of the treatment plan. 1536: I discussed the patient's case with Shobha Allen, admitting to Dr. Pozo, who will evaluate the patient for further management. Consultations Consultation #1: Shobha Allen Time: 15:36 Administered Medications Discontinued Medications Sodium Chloride (Nss) 500 mls @ 999 mls/hr IV .Q31M VALERIE Stop: 05/02/19 14:15 Last Infusion: 05/02/19 14:24 Dose: 0 mls/hr Documented by: [id number] Admin: 05/02/19 13:47 Dose: 999 mls/hr Documented by: [id number] Metoprolol Tartrate (Lopressor) 10 mg IV NOW STA Stop: 05/02/19 13:40 Last Admin: 05/02/19 13:47 Dose: 10 mg Documented by: [id number] Medical Decision Making Differential Diagnosis Differential diagnosis: Etiologies such as infections, reactive airway disease, COPD, pneumonia, pleural effusion, pulmonary edema, ARDS, pneumothorax, CHF, cardiac ischemia, cardiac tamponade, dysrhythmia, anemia, pulmonary embolism, musculoskeletal, gastrointestinal process, as well as others were entertained. Medical Records Attestation: I reviewed the patient's medical records. Home Medications Current Medication List: was personally reviewed by me Laboratory Data Attestation: I reviewed the patient's lab results. Result diagrams: 05/02/19 13:40 05/02/19 13:40 Lab Results 05/02/19 05/02/19 Range/Units 13:40 13:40 WBC 9.99 (4.8-10.8) K/uL RBC 4.33 (4.2-5.4) M/uL Hgb 13.9 (12.0-16.0) g/dL Hct 41.4 (37-47) % MCV 95.6 (80-100) fL MCH 32.1 (25-34) pg MCHC 33.6 (32-36) g/dL RDW Std Deviation 49.8 H (36.4-46.3) fL RDW Coeff of Jose 14.4 (11.5-14.5) % Plt Count 238 (130-400) K/uL MPV 10.1 (7.4-10.4) fL Immature Gran % (Auto) 0.2 % Neut % (Auto) 51.4 % Lymph % (Auto) 32.4 % [place] % (Auto) 10.0 % Eos % (Auto) 5.1 % Baso % (Auto) 0.9 % Immature Gran # (Auto) 0.02 (0.00-0.02) K/uL Neut # (Auto) 5.13 (1.4-6.5) K/uL Lymph # (Auto) 3.24 (1.2-3.4) K/uL [place] # (Auto) 1.00 H (0.11-0.59) K/uL Eos # (Auto) 0.51 H (0-0.5) K/uL Baso # (Auto) 0.09 (0-0.2) K/uL Sodium 141 (136-145) mmol/L Potassium 4.0 (3.5-5.1) mmol/L Chloride 107 (98-107) mmol/L Carbon Dioxide 25 (21-32) mmol/L Anion Gap 9.0 (3-11) BUN 13 (7-18) mg/dl Creatinine 0.96 (0.6-1.2) mg/dl Est Cr Clr Drug Dosing 51.4 ml/min Est GFR ( Amer) 67.5 Est GFR (Non-Af Amer) 58.3 BUN/Creatinine Ratio 13.8 (10-20) Glucose 110 H (70-99) mg/dl Calcium 9.1 (8.5-10.1) mg/dl Total Bilirubin 0.5 (0.2-1) mg/dl AST 27 (15-37) U/L ALT 42 (12-78) U/L Alkaline Phosphatase 99 (45-117) U/L Troponin I < 0.015 (0-0.045) ng/ml Total Protein 7.3 (6.4-8.2) gm/dl Albumin 3.8 (3.4-5.0) gm/dl Globulin 3.5 (2.5-4.0) gm/dl Albumin/Globulin Ratio 1.1 (0.9-2) Lipase 111 (73-393) U/L TSH 4.590 H (0.300-4.500) uIu/ml Free T4 0.99 (0.8-1.6) ng/dl Imaging Data Radiologist's Impression: Radiology results as stated below per my review and the radiologist's interpretation: XR chest 1V portable HISTORY: 73 years-old Female Chest Pain acute atypical chest pain with shortn ess of breath COMPARISON: Chest radiograph 01/31/2019 TECHNIQUE: Portable AP view of the chest FINDINGS: Cardiac silhouette is enlarged. Mild pulmonary vascular congestion. Subsegmental bibasilar opacities are noted. There is mild blunting of the costophrenic angles. No pneumothorax or large pleural effusion. Mild degenerative changes of the shoulders and spine. IMPRESSION: 1. Cardiomegaly with mild pulmonary vascular congestion. 2. Bibasilar opacities suggest atelectasis or pneumonitis. 3. Possible trace pleural effusions. The above report was generated using voice recognition software. It may contain grammatical, syntax or spelling errors. Electronically signed by: Shakir Fernandez M.D. 05/02/2019 1:53 PM ECG Data Attestation: I personally reviewed and interpreted this ECG as follows: Indication: SOB/dyspnea Rate (beats per minute): 120 Rhythm: atrial fibrillation Findings: no PAC, no PVC, no ST elevation and no ectopy Blood Pressure Blood Pressure Findings: Elevated blood pressure Blood Pressure Disposition: further management by hospitalist JARROD Bhandari This is a 73-year-old female who presents to the ED with a chief complaint of shortness of breath and exertional fatigue and dyspnea. Her symptoms started about 5 days ago. She denies any chest pains and her symptoms resolved with rest. The patient is chronically on Eliquis for A. fib. She presents the emergency department with a heart rate in the 120s. Her EKG shows A. fib at a rate of 121 without specific ischemic changes. Her CBC and chemistry panel were normal. Chest x-ray revealed some mild pulmonary edema and atelectasis versus pneumonia. Clinically she does not have these findings on my exam. The patient's blood pressure was slightly elevated. She is afebrile. She does not have any concerning DVT risk factors and is on Eliquis chronically. The patient was treated with some IV fluids and IV Lopressor. The Lopressor did not decrease her heart rate but did decrease her blood pressure somewhat. The patient was given IV Cardizem for the A. fib with RVR. She will be seen by the hospitalist for further inpatient evaluation and care. Impression & Plan Atrial fibrillation with RVR, Unstable angina Discharge Plan Visit Data Chief Complaint: Arrhythmia/Palpitations Stated Complaint: SHORT OF BREATH-IRREGULAR HEARTBEAT ED Provider: Carrillo Stacy Discharge Problem: Atrial fibrillation with RVR, Unstable angina Patient Disposition: Being Evaluated by Hospitalist Forms Stand Alone Forms: My [facility] Prescriptions Prescriptions: No Action quetiapine [Seroquel] 25 mg Tablet 25 mg PO HS RF: 0 atorvastatin 40 mg Tablet 40 mg PO HS RF: 0 fhyvcndotg-jqrvrnsbwd-lhs-cod [id number] mg Capsule 1 tab PO DAILY RF: 0 atenolol 50 mg Tablet 50 mg PO DAILY RF: 0 cholecalciferol (vitamin D3) [Vitamin D3] 5,000 unit Tablet 5,000 unit PO DAILY RF: 0 thyroid (pork) [[place] Thyroid] 60 mg Tablet 60 mg PO Q OTHER DAY RF: 0 Eliquis 5 mg Tablet 5 mg PO AMPM RF: 0 Referrals Referrals: Alonso Barth DO [Primary Care Provider] - The scribe's documentation has been prepared under my direction and personally reviewed by me in its entirety. I confirm that the note above accurately reflects all work, treatment, procedures, and medical decision making performed by me.
--- NOTE | 2019-05-02 16:49 | History & Physical Report ---
Date of Service May 02, 2019 Assessment & Plan (1) Atrial fibrillation with RVR: This is a 73-year-old female with a PMH of paroxysmal atrial fibrillation, hypothyroidism, hypertension, GERD, history of CVA in 2018 without deficits and other medical problems listed below who presents with progressive shortness of breath x 1 week and was found to have A Fib with RVR and volume overload concerning for new onset CHF. -EKG with HR of 120s initially -Given 10 mg IV Lopressor 15 mg IV diltiazem with HR in 70s-80s during evaluation, SBP of 100 -Continue Lopressor PO 12.5mg Q8H with hold parameters -Monitor on telemetry -Continue Eliquis BID (2) Shortness of breath: (3) Volume overload: Has had SOB for 5 days in setting of A Fib and evidence of congestive failure on chest CTA -No CHF noted on previous cardiology notes -Saturating at 91% on 3L NC (does not normally require O2) -BNP elevated to 3845, no leukocytosis, troponin wnl -Chest CTA without evidence of PE. Cardiomegaly with evidence of congestive failure. Moderate pleural effusions with associated atelectasis -2D echo ordered -Given Lasix 40mg IV x 1. Reassess volume status in AM -Strict I&Os, daily weights (4) History of stroke: H/o CVA in 2018 without deficits -Continue Eliquis (5) HTN (hypertension): Normotensive -Hold Atenolol while receiving Toprol Q8H (6) Hypothyroidism: Continue levothyroxine DVT Ppx: Eliquis Code status: FULL PCP: [facility] Plan to return home once medically stable. Patient seen in collaboration with Dr. Pozo. Please see addendum. History of Present Illness Chief Complaint: Sent from PCP with AGissell fib with RVR Primary Care Provider: Keoo juany Barth, DO This is a 73-year-old female with a PMH of paroxysmal atrial fibrillation, hypothyroidism, hypertension, GERD, history of CVA in 2018 without deficits and other medical problems listed below who presents with progressive shortness of breath x 1 week. Started to feel fatigued and generally weak last week and has not been able to keep up with normal activities. Endorses some wheezing but denies fever, chills or cough. Endorses some weight gain but denies orthopnea or lower extremity swelling. Has some pleuritic chest pain with deep inspiration. Follows with Dr. Leyva for atrial fibrillation and bradycardia. Was evaluated by Dr. Cooney for possible pacemaker, but felt that A. fib is still well controlled on atenolol. Was seen in office today by HARSH Darden who found patient to be in A. fib with RVR in 130s and sent patient to ED for further evaluation. Upon arrival, patient in A. fib in 120s. Given 10 mg IV Lopressor 15 mg IV diltiazem with HR in 70s-80s during evaluation. Allergies Allergy/AdvReac Type Severity Reaction Status Date / Time adhesive AdvReac Mild mahmood Unverified 05/02/19 14:07 Home Medications Home Medications Medication Instructions Recorded Confirmed Type Eliquis 5 mg PO AMPM 09/17/18 05/02/19 History atenolol 50 mg PO DAILY 09/17/18 05/02/19 History atorvastatin 40 mg PO HS 09/17/18 05/02/19 History eymuktwyte-tfohhlnvua-jms-cod 1 tab PO DAILY 09/17/18 05/02/19 History quetiapine [Seroquel] 25 mg PO HS 09/17/18 05/02/19 History thyroid (pork) [[place] Thyroid] 60 mg PO Q OTHER DAY 09/17/18 05/02/19 History cholecalciferol (vitamin D3) 2,000 unit PO DAILY 05/02/19 05/02/19 History [Vitamin D3] fremanezumab-vfrm [[place]] 1.5 mg SUBCUT MONTHLY 05/02/19 05/02/19 History omeprazole 20 mg PO DAILY 05/02/19 05/02/19 History Past Med/Surg History Medical History History of stroke (Chronic) Depression (Chronic) HLD (hyperlipidemia) (Chronic) HTN (hypertension) (Chronic) Bill's thyroiditis (Chronic) Hypothyroidism (Chronic) Migraines (Chronic) Surgical History Hx of cataract surgery Family History Other Cancer Hypertension Thyroid disorder Social History Preferred Language: Turkish Communication Ability: Effective 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 Physical Exam Physical Exam: General Appearance: WD/WN, no apparent distress, resting comfortably Head: normocephalic, atraumatic Eyes: normal inspection, PERRL, EOMI ENT: hearing grossly normal, pharynx normal (moist mucous membranes) Neck: supple, no JVD, no adenopathy Respiratory/Chest: bibasilar crackles. No wheezes or rhonci. No respiratory distress or accessory muscle use Cardiovascular: irregular rate & rhythm, no murmur, normal peripheral pulses, 1+ BLE Abdomen/GI: normal bowel sounds, soft, non-tender to palpation Extremities/Musculoskelatal: normal inspection, no calf tenderness, normal capillary refill Neurologic/Psych: alert, normal mood/affect, oriented x 3 Skin: normal color, warm/dry Results & Data Vital Signs (Past 12 Hours) Vital Signs Temp Pulse Pulse Resp BP BP Pulse Ox 05/02/19 16:41 72 21 124/79 94 05/02/19 16:31 91 H 24 136/84 96 05/02/19 16:29 77 21 139/81 89 L 05/02/19 16:15 67 25 H 101/46 L 05/02/19 16:14 86 19 101/46 L 93 05/02/19 16:03 75 17 112/71 94 05/02/19 16:00 68 15 89 L 05/02/19 15:45 83 25 H 87 L 05/02/19 15:30 113 H 19 93 05/02/19 15:02 118 H 21 117/97 91 05/02/19 15:00 136 H 17 90 05/02/19 14:32 120 H 20 151/100 H 91 05/02/19 14:30 113 H 20 93 05/02/19 14:26 138 H 125 H 24 129/104 H 129/104 H 93 05/02/19 14:00 115 H 22 94 05/02/19 13:42 120 H 94 05/02/19 13:41 118 H 18 181/108 H 94 06/03/19 13:22 36.3 C L 94 H 20 146/95 H 95 Laboratory Results Short CBC 05/02/19 Range/Units 13:40 WBC 9.99 (4.8-10.8) K/uL Hgb 13.9 (12.0-16.0) g/dL Hct 41.4 (37-47) % Plt Count 238 (130-400) K/uL BMP 05/02/19 13:40 Sodium 141 Potassium 4.0 Chloride 107 Carbon Dioxide 25 BUN 13 Creatinine 0.96 Glucose 110 H Calcium 9.1 Cardiac Enzymes 05/02/19 Range/Units 13:40 Troponin I < 0.015 (0-0.045) ng/ml Liver Function 05/02/19 Range/Units 13:40 Total Bilirubin 0.5 (0.2-1) mg/dl AST 27 (15-37) U/L ALT 42 (12-78) U/L Alkaline Phosphatase 99 (45-117) U/L Albumin 3.8 (3.4-5.0) gm/dl Diagnostic Findings CXR: IMPRESSION: 1. Cardiomegaly with mild pulmonary vascular congestion. 2. Bibasilar opacities suggest atelectasis or pneumonitis. 3. Possible trace pleural effusions. Chest CTA: IMPRESSION: 1. There is no evidence of pulmonary embolus in the main, lobar, or segmental pulmonary arteries. 2. Cardiomegaly with evidence of congestive failure. 3. There are moderate pleural effusions with associated atelectasis. 4. Mildly enlarged mediastinal and hilar lymph nodes are identified. 5. Additional findings as above. ECG Rhythm: atrial flutter Supervising Physician Co-Signing Physician Notes I saw this patient with the physician chef's assistant, I participated in the history, physical, review of systems, and physical exam. I reviewed the medications with the patient and the physician chef's assistant and helped reconcile the medications. I helped take a detailed family and social history as well. I formulated the assessment and plan personally with the physician chef's assistant and went over it with the patient. Physical Exam Gen-AAO x 3, NAD, Afebrile, obese Head-NCAT, EOMI, PERRLA, Anicteric Sclera, No Posterior Pharyngeal Erythema Neck-Supple, No JVD, No Thyromegaly, No Masses, No LAD, No Bruits Lungs-Faint Bilateral Rales, No Rhonchi, No Wheezing, No Crepitus Chest-No S4, +S1, +S2, No S3, No Murmurs, No Rubs, No Gallops, No Ectopy Abdomen-Soft, Bowel Sounds Present, Obese, Non Tender, Non Distended, No Hepatomegaly, No Splenomegaly, No Palpable Masses, No Rebound, No Rigidity, No Guarding Musculoskeletal-Full Range of Motion Bilaterally, No CVAT Extremities-No Cyanosis, No Clubbing, No Edema Nuero-Cranial Nerves II-XII grossly intact, Motor WNL, DTRs WNL, Strength WNL, Non Focal Psych-Normal Mood
[2019-05-02] MEDS ORDERED: OPTIRAY 320 125ml IV PRN (17:42)
[2019-05-02] MEDS ORDERED: ACETAMINOPHEN 325 MG TAB PO PRN (18:17)
[2019-05-02] MEDS ORDERED: [UNRECOGNIZED DRUG - OTHER] PO PRN (18:17)
[2019-05-02] MEDS ORDERED: POLYETHYLENE (MIRALAX) 17 GM PACK PO PRN (18:17)
[2019-05-02] MEDS ORDERED: ONDANSETRON INJ 2 MG/ML 2 ML VIAL IV PRN (18:17)
--- NOTE | 2019-05-02 18:35 | CT Scan Report ---
CT ANGIOGRAM OF THE CHEST CLINICAL HISTORY: Dyspnea. COMPARISON STUDY: Chest x-ray dated 05/02/2019. TECHNIQUE: Following the IV administration of 118 cc of Optiray 320, CT angiogram of the chest was pe rformed from the upper abdomen to the thoracic inlet utilizing the pulmonary embolus protocol. Images are reviewed in the axial, sagittal, and coronal planes. 3-D MIPS images are created and assessed. I V contrast was administered without complication. A dose lowering technique was utilized adhering to the principles of ALARA. CT DOSE: 355.77 mGy.cm FINDINGS: Thyroid: Atrophic. Thoracic aorta: The thoracic aorta is normal in caliber and demonstrates standard 3-vessel arch anato my. The thoracic aorta is not well opacified. Pulmonary vasculature: The pulmonary trunk is normal in caliber. There are no filling defects identif ied in main, lobar, or segmental pulmonary branches to suggest pulmonary embolus. Heart: The heart is enlarged and there is trace pericardial fluid. Lungs and pleural spaces: There are moderate pleural effusions with associated atelectasis. Diffuse i ntraocular septal thickening and diffuse peribronchial thickening indicate congestive failure. No air space consolidation is seen typical for pneumonia. Mediastinum: Prominent mediastinal lymph nodes measure up to 10 mm in short axis. Pia: Mildly enlarged hilar nodes measure up to 13 mm in short axis. Axillae: There is no axillary lymphadenopathy. Upper abdomen: There is a small hiatal hernia. Cholecystectomy clips are noted. Postoperative change is suggested at the esophageal hiatus. Skeletal structures: The skeletal structures are osteopenic. No lytic or blastic bony lesions are see n. IMPRESSION: 1. There is no evidence of pulmonary embolus in the main, lobar, or segmental pulmonary arteries. 2. Cardiomegaly with evidence of congestive failure. 3. There are moderate pleural effusions with associated atelectasis. 4. Mildly enlarged mediastinal and hilar lymph nodes are identified. 5. Additional findings as above. Electronically signed by: Reid Martin M.D. 05/02/2019 6:34 PM
[2019-05-02] MEDS ORDERED: FUROSEMIDE 40 MG in SYRINGE 0 ML IV ONE (18:45)
[2019-05-02 19:29] LABS: INR 1.1 (0.9-1.1); Prothrombin Time 11.3 Seconds (9.0-12.0)
[2019-05-02] MEDS: METOPROLOL TARTRATE 25 MG TAB PO SCH (20:57)
[2019-05-02] MEDS: ATORVASTATIN 40 MG TAB PO SCH (20:58)
[2019-05-02] MEDS: QUETIAPINE FUMARATE 25 MG TABLET PO SCH (20:58)
[2019-05-02] MEDS: APIXABAN 5 MG TABLET PO SCH (21:01)
[2019-05-03] MEDS ORDERED: METOPROLOL TARTRATE 1 MG/ML VIAL IV PRN (00:36)
[2019-05-03] MEDS ORDERED: DIGOXIN 250 MCG in SYRINGE 9 ML IV ONE (01:30)
[2019-05-03 05:51] LABS: Hematocrit (blood only) 39.4 % (37-47); Hemoglobin 13.2 g/dL (12.0-16.0); Mean Corpuscular Hgb Conc 33.5 g/dL (32-36); Mean Corpuscular Volume 94.9 fL (80-100); Mean Platelet Volume 10.1 fL (7.4-10.4); Platelet Count 197 K/uL (130-400); RDW Coefficient of Variation 14.2 % (11.5-14.5); RDW Standard Deviation 48.5 fL (36.4-46.3); Red Blood Count 4.15 M/uL (4.2-5.4); White Blood Count 6.88 K/uL (4.8-10.8)
[2019-05-03] MEDS ORDERED: FUROSEMIDE 40 MG/4 ML VIAL IV SCH (06:00)
[2019-05-03] MEDS: METOPROLOL TARTRATE 25 MG TAB PO SCH ×2 (06:05→20:20)
[2019-05-03] MEDS: FUROSEMIDE 40 MG in SYRINGE 0 ML IV SCH ×2 (06:06→18:16)
[2019-05-03 06:33] LABS: BUN Creatinine Ratio 14.5 (10-20); Calcium 8.4 mg/dl (8.5-10.1); Creatinine Clr Calc Pharmacy 59.4 ml/min; Est GFR (African American) 80.5; Est GFR (Non-African American) 69.5; Potassium 3.8 mmol/L (3.5-5.1)
--- NOTE | 2019-05-03 06:59 | Hospitalist Progress Note ---
Date of Service May 03, 2019 Assessment & Plan (1) Atrial fibrillation with RVR: This is a 73-year-old female with a PMH of paroxysmal atrial fibrillation, hypothyroidism, hypertension, GERD, history of CVA in 2018 without deficits and other medical problems listed below who presents with progressive shortness of breath x 1 week and was found to have A Fib with RVR and volume overload concerning for new onset CHF. -EKG with HR of 120s initially -Given 10 mg IV Lopressor 15 mg IV diltiazem with HR in 70s-80s during evaluation, SBP of 100 -Change Lopressor PO 12.5mg to Q12H with hold parameters -Digoxin 250 given at 1 am, Will give another 500 now and c/s Cards, Dig level in am -Monitor on telemetry -Continue Eliquis BID (2) Shortness of breath: Sec to acute Diastolic CHF and Pleural Effusion Lasix, Rate control (3) Volume overload: Has had SOB for 5 days in setting of A Fib and evidence of congestive failure on chest CTA -No CHF noted on previous cardiology notes -Saturating at 91% on 3L NC (does not normally require O2) -BNP elevated to 3845, no leukocytosis, troponin wnl -Chest CTA without evidence of PE. Cardiomegaly with evidence of congestive failure. Moderate pleural effusions with associated atelectasis -2D echo ordered -Lasix 40mg IV q12h. -Strict I&Os, daily weights (4) Acute diastolic CHF (congestive heart failure): Rate control Lasix (5) Pleural effusion: Lasix Repeat CXR / or 6/ Wean O2 (6) History of stroke: H/o CVA in 2018 without deficits -Continue Eliquis (7) HTN (hypertension): Normotensive -Hold Atenolol while receiving Toprol (8) Hypothyroidism: Continue levothyroxine DVT Ppx: Eliquis Code status: FULL PCP: Lary Dispo: Tele. Plan to return home once medically stable. ROS-No Headache, No Visual Changes, No Nausea, No Vomiting, No Fever, No Chills, No Neck Pain or Stiffness, No Chest Pain, No Palpitations, No SOB, No LONGORIA, No Cough, No Sputum, No Wheezing, No Abdominal Pain, No Diarrhea, No Hematemesis, No Hemoptysis, No Unexpected Weight Loss, No Flank pain, No Melena, No H ematochezia, No Frequency, No Urgency, No Burning, No Hematuria, No Rashes, No Diaphoresis. Appetite is Normal, feels weak. Physical Exam Gen-AAO x 3, NAD, Afebrile, obese Head-NCAT, EOMI, PERRLA, Anicteric Sclera, No Posterior Pharyngeal Erythema Neck-Supple, No JVD, No Thyromegaly, No Masses, No LAD, No Bruits Lungs-Clear to Auscultation Bilaterally, No Rales, No Rhonchi, No Wheezing, No Crepitus Chest-Irreg/Irreg No S4, +S1, +S2, No S3, No Murmurs, No Rubs, No Gallops Abdomen-Soft, Bowel Sounds Present, Obese, Non Tender, Non Distended, No Hepatomegaly, No Splenomegaly, No Palpable Masses, No Rebound, No Rigidity, No Guarding Musculoskeletal-Full Range of Motion Bilaterally, No CVAT Extremities-No Cyanosis, No Clubbing, No Edema Nuero-Cranial Nerves II-XII grossly intact, Motor WNL, DTRs WNL, Strength WNL, Non Focal Psych-Normal Mood Results & Data Vital Signs (Past 12 Hours) Vital Signs Temp Pulse Pulse Resp BP Pulse Ox 05/03/19 06:03 108 H 118/61 05/03/19 04:26 36.4 C L 60 16 130/77 92 05/03/19 01:34 133 H 05/03/19 00:52 123 H 98/58 L 05/02/19 22:39 36.7 C 112 H 18 100/63 95 05/02/19 21:02 36.3 C L 81 20 105/71 94 Labs reviewed
[2019-05-03] MEDS: APIXABAN 5 MG TABLET PO SCH ×2 (08:46→20:20)
[2019-05-03] MEDS: PANTOprazole 40 MG TAB PO SCH (08:47)
[2019-05-03] MEDS: ARMOUR THYROID 30 MG TAB PO SCH (08:47)
[2019-05-03] MEDS: CHOLECALCIFEROL 1,000 UNITS TAB PO SCH (08:47)
[2019-05-03] MEDS ORDERED: DIGOXIN 500 MCG in SYRINGE 9 ML IV ONE (11:00)
--- NOTE | 2019-05-03 14:59 | Cardiology Consultation ---
Date of Consultation May 03, 2019 Assessment & Plan (1) Atrial fibrillation with RVR: The patient continues to be in atrial fibrillation with heart rates in the 120s. Going to load her with amiodarone not give any additional digoxin after starting the amiodarone due to toxicity. Hopefully she will spontaneously converted to normal sinus rhythm. I ordered an echocardiogram. (2) Acute diastolic CHF (congestive heart failure): The patient is most likely an diastolic heart failure due to the atrial fibrillation. Diuretics are appropriate. History of Present Illness Attending Physician: Jorje Pozo DO History of Present Illness This is a 73-year-old female who approximately a year ago presented with a CVA and was found to have paroxysmal atrial fibrillation. She has been treated with atenolol and Eliquis. She has occasional heart palpitations at which time she knows that she is in atrial for usually they are short-lived. She began to have heart palpitations and shortness of breath last week. Things did not improve and she went to see her junction maker where she was found to be in atrial fibrillation with RVR along with congestive heart failure. She was sent to the hospital for admission. After arrival here she is noted to be in atrial fibrillation and mild congestive heart failure. She has been given IV diuretics with improvement in her symptoms. Allergies Allergy/AdvReac Type Severity Reaction Status Date / Time adhesive AdvReac Mild mahmood Unverified 05/02/19 14:07 Home Medications Home Medications Medication Instructions Recorded Confirmed Type Eliquis 5 mg PO AMPM 09/17/18 05/02/19 History atenolol 50 mg PO DAILY 09/17/18 05/02/19 History atorvastatin 40 mg PO HS 09/17/18 05/02/19 History irejbrbbkd-siyivqniwk-apt-cod 1 tab PO DAILY 09/17/18 05/02/19 History quetiapine [Seroquel] 25 mg PO HS 09/17/18 05/02/19 History thyroid (pork) [Sunbright Thyroid] 60 mg PO Q OTHER DAY 09/17/18 05/02/19 History cholecalciferol (vitamin D3) 2,000 unit PO DAILY 05/02/19 05/02/19 History [Vitamin D3] fremanezumab-vfrm [Ajovy] 1.5 mg SUBCUT MONTHLY 05/02/19 05/02/19 History omeprazole 20 mg PO DAILY 05/02/19 05/02/19 History Patient History Medical History History of stroke (Chronic) Depression (Chronic) HLD (hyperlipidemia) (Chronic) HTN (hypertension) (Chronic) Bill's thyroiditis (Chronic) Hypothyroidism (Chronic) Migraines (Chronic) Surgical History Hx of cataract surgery Family History Other Cancer Hypertension Thyroid disorder Social History Preferred Language: Bhutanese Communication Ability: Effective Seam Closer Required: No Beliefs That Will Affect Care: None Current Living Situation: Spouse Other Information That Helps Us Care for You: No Feels Safe at Home: Yes Safety Concerns: Feels Safe At This Time Smoking Status: Never smoker Do You Dip or Chew Tobacco: No Second Hand Exposure: No Hx Alcohol Use: No Hx Substance Use: No Review of Systems Review of Systems: All systems reviewed & are unremarkable except as noted in HPI & below No additional Physical Exam Physical Exam: General: no acute distress and stated age Head: normocephalic, no masses, lesions, tenderness or abnormalities Eyes: conjunctiva are pink and non-injected, sclera clear Neck: supple, no adenopathy, no bruits, normal jugular venous pulse, no hepatojugular reflux Chest: normal shape and normal respiratory effort Lungs: clear to auscultation and percussion Cardiac Exam: - irregular rate & rhythm, no murmurs gallops or rubs - normal S1, normal S2 Pulses: 2(+) throughout Abdomen: abdomen soft, non-tender, no abnormal masses and no hepatosplenomegaly Musculoskeletal: no gait disturbance, no joint inflammation, no deforming arthritis Extremities: no edema and no cyanosis Neuro: grossly normal exam Results & Data Vital Signs (Past 12 Hours) Vital Signs Temp Pulse Pulse Resp BP Pulse Ox 05/03/19 12:28 36.5 C 68 18 115/75 98 05/03/19 10:45 115 H 05/03/19 08:05 36.5 C 104 H 20 121/84 94 05/03/19 06:03 108 H 118/61 05/03/19 04:26 36.4 C L 60 16 130/77 92 Laboratory Results Laboratory Results - last 24 hr 05/02/19 05/02/19 05/03/19 13:40 13:40 05:34 WBC 6.88 RBC 4.15 L Hgb 13.2 Hct 39.4 MCV 94.9 MCH 31.8 MCHC 33.5 RDW Std Deviation 48.5 H RDW Coeff of Jose 14.2 Plt Count 197 MPV 10.1 PT 11.3 INR 1.1 Sodium Potassium Chloride Carbon Dioxide Anion Gap BUN Creatinine Est Cr Clr Drug Dosing Est GFR ( Amer) Est GFR (Non-Af Amer) BUN/Creatinine Ratio Glucose Calcium NT-Pro-B Natriuret Pep 3845 H 05/03/19 05:34 WBC RBC Hgb Hct MCV MCH MCHC RDW Std Deviation RDW Coeff of Jose Plt Count MPV PT INR Sodium 141 Potassium 3.8 Chloride 106 Carbon Dioxide 30 Anion Gap 5.0 BUN 12 Creatinine 0.83 Est Cr Clr Drug Dosing 59.4 Est GFR ( Amer) 80.5 Est GFR (Non-Af Amer) 69.5 BUN/Creatinine Ratio 14.5 Glucose 79 Calcium 8.4 L NT-Pro-B Natriuret Pep Medications Administered Current Inpatient Medications Acetaminophen (Tylenol) 650 mg PO Q4H PRN PRN Reason: Pain or Fever Stop: 06/01/19 18:16 Last Admin: 05/02/19 19:37 Dose: 650 mg Documented by: Amiodarone HCl (Cordarone) 400 mg PO NOW ONE Stop: 05/03/19 14:54 Amiodarone HCl (Cordarone) 400 mg PO TID [facility] Stop: 06/02/19 20:59 Apixaban (Eliquis) 5 mg PO BID VALERIE Stop: 06/01/19 20:59 Last Admin: 05/03/19 08:46 Dose: 5 mg Documented by: Atorvastatin Calcium (Lipitor) 40 mg PO HS [facility] Stop: 06/01/19 20:59 Last Admin: 05/02/19 20:58 Dose: 40 mg Documented by: Furosemide 40 mg/ Syringe 4 mls @ 4 mls/min IV Q12H VALERIE Stop: 06/02/19 05:59 Last Admin: 05/03/19 06:06 Dose: 4 mls/min Documented by: Ioversol (Optiray 320 125ml) 118 ml IV ONCE PRN PRN Reason: Interaction Checking Stop: 05/06/19 17:41 Last Admin: 05/02/19 17:42 Dose: 118 ml Documented by: Metoprolol Tartrate (Lopressor) 2.5 mg IV Q4 PRN PRN Reason: Tachycardia Stop: 06/02/19 03:59 Metoprolol Tartrate (Lopressor) 12.5 mg PO Q12 VALERIE Stop: 06/02/19 20:59 Miscellaneous (Order Awaiting Action) 1 ea N/A QS [facility] Stop: 06/02/19 00:00 Last Admin: 05/03/19 08:46 Dose: Not Given Documented by: Ondansetron HCl (Zofran) 4 mg IV Q6H PRN PRN Reason: Nausea Stop: 06/01/19 18:16 Pantoprazole Sodium (Protonix) 40 mg PO DAILY [facility]; Protocol Stop: 06/02/19 08:59 Last Admin: 05/03/19 08:47 Dose: 40 mg Documented by: Polyethylene Glycol (Miralax Powder Packet) 17 gm PO DAILY PRN PRN Reason: Constipation Stop: 06/01/19 18:16 Quetiapine Fumarate (Seroquel) 25 mg PO HS [facility] Stop: 06/01/19 20:59 Last Admin: 05/02/19 20:58 Dose: 25 mg Documented by: Thyroid (Tashi Thyroid) 60 mg PO Q2D@0900 VALERIE Stop: 06/02/19 08:59 Last Admin: 05/03/19 08:47 Dose: 60 mg Documented by: Vitamin D (Vitamin D3) 2,000 units PO DAILY [facility]IE Stop: 06/02/19 08:59 Last Admin: 05/03/19 08:47 Dose: 2,000 units Documented by:
[2019-05-03] MEDS ORDERED: AMIODARONE 200 MG TAB PO ONE (15:30)
[2019-05-03] MEDS: AMIODARONE 200 MG TAB PO SCH (20:19)
[2019-05-03] MEDS: ATORVASTATIN 40 MG TAB PO SCH (20:21)
[2019-05-03] MEDS: QUETIAPINE FUMARATE 25 MG TABLET PO SCH (20:22)
[2019-05-04] MEDS: FUROSEMIDE 40 MG in SYRINGE 0 ML IV SCH ×2 (06:03→17:24)
[2019-05-04 07:26] LABS: Hematocrit (blood only) 43.5 % (37-47); Hemoglobin 15.6 g/dL (12.0-16.0); Mean Corpuscular Hgb Conc 35.9 g/dL (32-36); Mean Corpuscular Volume 92.2 fL (80-100); Mean Platelet Volume 9.8 fL (7.4-10.4); Platelet Count 235 K/uL (130-400); RDW Coefficient of Variation 13.9 % (11.5-14.5); RDW Standard Deviation 46.4 fL (36.4-46.3); Red Blood Count 4.72 M/uL (4.2-5.4); White Blood Count 7.33 K/uL (4.8-10.8)
[2019-05-04 08:01] LABS: BUN Creatinine Ratio 11.8 (10-20); Calcium 9.2 mg/dl (8.5-10.1); Creatinine Clr Calc Pharmacy 51.9 ml/min; Est GFR (African American) 71.1; Est GFR (Non-African American) 61.3; Potassium 3.1 mmol/L (3.5-5.1)
[2019-05-04] MEDS ORDERED: POTASSIUM CHLORIDE 20 MEQ TABCR PO STA (08:21)
[2019-05-04] MEDS: PANTOprazole 40 MG TAB PO SCH (09:01)
[2019-05-04] MEDS: AMIODARONE 200 MG TAB PO SCH ×3 (09:01→20:13)
[2019-05-04] MEDS: CHOLECALCIFEROL 1,000 UNITS TAB PO SCH (09:02)
--- NOTE | 2019-05-04 09:09 | Cardiology Progress Note ---
Date of Service May 04, 2019 Assessment & Plan (1) Atrial fibrillation with RVR: Ongoing symptomatic atrial fibrillation with a rapid ventricular response Increase metoprolol tartrate to 25 mg three times per day Continue amiodarone 400 mg three times per day for now Daily electrocardiograms requested Maintain telemetry [id number] Score 6 points. Continue Eliquis anticoagulation (2) Acute diastolic CHF (congestive heart failure): Ongoing evidence of acute decompensated diastolic heart failure secondary to the atrial fibrillation. Bilateral pleural effusions Continue IV furosemide as presently prescribed Supplement potassium orally. (3) Hypokalemia: Supplement potassium orally (4) HLD (hyperlipidemia): Continue statin, atorvastatin (5) HTN (hypertension): Blood pressure acceptable, occasionally with mild hypotension, asymptomatic Follow Supervising Physician Co-Signing Physician Notes I saw this patient with the physician critical care physician assistant, I participated in the history, physical, review of systems, and physical exam. I reviewed the medications with the patient and the physician critical care physician assistant and helped reconcile the medications. I helped take a detailed family and social history as well. I formulated the assessment and plan personally with the physician critical care physician assistant and went over it with the patient. Physical Exam Gen-AAO x 3, NAD, Afebrile, obese Head-NCAT, EOMI, PERRLA, Anicteric Sclera, No Posterior Pharyngeal Erythema Neck-Supple, No JVD, No Thyromegaly, No Masses, No LAD, No Bruits Lungs-Faint Bilateral Rales, No Rhonchi, No Wheezing, No Crepitus Chest-No S4, +S1, +S2, No S3, No Murmurs, No Rubs, No Gallops, No Ectopy Abdomen-Soft, Bowel Sounds Present, Obese, Non Tender, Non Distended, No Hepatomegaly, No Splenomegaly, No Palpable Masses, No Rebound, No Rigidity, No Guarding Musculoskeletal-Full Range of Motion Bilaterally, No CVAT Extremities-No Cyanosis, No Clubbing, No Edema Nuero-Cranial Nerves II-XII grossly intact, Motor WNL, DTRs WNL, Strength WNL, Non Focal Psych-Normal Mood Subjective Patient seen and examined. Chart, medications, and telemetry reviewed. Played out and dyspneic when getting cleaned up this morning Mild nausea without emesis Cough and chest congestion have improved. No chest pain. No overt palpitations. No significant peripheral edema Telemetry: Atrial fibrillation with a rapid ventricular response. Heart rates have ranged from 110 to 160 bpm. I do not see any periods of sinus or significant bradycardia. May 03, 2019 TTE Interpretation Summary ([facility], [place], Dr. Leyva): Normal LV size. EF 65-70%. Normal RV systolic function. Moderately dilated LA. Normal RA. Grossly normal valvular structure and function Review of Systems Review of Systems: All systems reviewed & are unremarkable except as noted in HPI & below Respiratory: + cough, + chest congestion, + dyspnea and + dyspnea on exertion Cardiovascular: no chest pain, no orthopnea, no palpitations, no syncope and no edema Gastrointestinal: + early satiety and + nausea; no abdominal pain, no vomiting, no dysphagia and no constipation Physical Exam Physical Exam: General: A&Ox3. NAD. HEENT: Normocephalic. Atraumatic. PER. Conjunctiva pink, sclera clear. No carotid bruits. +JVD. +HJR. Heart: Irregularly irregular around 110. No murmur. No rub. PMI is nondisplaced. Lungs: Absent breath sounds at the right more than left base. No abnormal breath sounds auscultated. Abdomen: +BS. Soft. Nontender. No masses or organomegaly. Extremities: No clubbing, cyanosis, or edema. Limited neurological examination is without focal deficits. Pulses: radial=2/4, posterior tibial=2/4. Results & Data Vital Signs (Past 12 Hours) Vital Signs Temp Pulse Resp BP Pulse Ox 05/04/19 07:05 38.6 C H 106 H 16 131/78 93 05/04/19 04:12 37 C 76 16 149/96 H 92 05/03/19 22:56 36.7 C 102 H 20 109/60 90 Laboratory Results - last 24 hr 05/03/19 05/04/19 05/04/19 17:50 07:10 07:10 WBC 7.33 RBC 4.72 Hgb 15.6 Hct 43.5 MCV 92.2 MCH 33.1 MCHC 35.9 RDW Std Deviation 46.4 H RDW Coeff of Jose 13.9 Plt Count 235 MPV 9.8 Sodium 141 Potassium 3.1 L D Chloride 101 Carbon Dioxide 29 Anion Gap 11.0 BUN 11 Creatinine 0.92 Est Cr Clr Drug Dosing 51.9 Est GFR ( Amer) 71.1 Est GFR (Non-Af Amer) 61.3 BUN/Creatinine Ratio 11.8 Glucose 122 H Calcium 9.2 Digoxin 1.5 05/04/19 07:10 WBC RBC Hgb Hct MCV MCH MCHC RDW Std Deviation RDW Coeff of Jose Plt Count MPV Sodium Potassium Chloride Carbon Dioxide Anion Gap BUN Creatinine Est Cr Clr Drug Dosing Est GFR ( Amer) Est GFR (Non-Af Amer) BUN/Creatinine Ratio Glucose Calcium Digoxin 1.3
[2019-05-04] MEDS: METOPROLOL TARTRATE 25 MG TAB PO SCH ×4 (09:27→20:13)
[2019-05-04] MEDS: APIXABAN 5 MG TABLET PO SCH ×2 (09:44→20:15)
--- NOTE | 2019-05-04 18:58 | Hospitalist Progress Note ---
Date of Service May 04, 2019 Assessment & Plan (1) Atrial fibrillation with RVR: Present on admission with worsening SOB HR 120 on admission 120s Received 10 mg IV Lopressor 15 mg IV diltiazem Cardiology on board On Amiodarone 400mg TID metoprolol increased to 25mg TID Continue elequis 5 mg BID Continue monitor in tele (2) Acute diastolic CHF (congestive heart failure): Worsening SOB on presentation BNP elevated to 3845 CXR showed cardiomegaly with mild pulmonary vascular congestion. CT chest showed cardiomegaly with evidence of congestive failure. NO PE ECHO showed right ventricle systolic function is normal with EF 65-70% On IV lasix 40mg BID cardiology on board Clinically improves (3) Pleural effusion: saturated well on RA Continue IV lasix Clinically stable (4) History of stroke: H/o CVA in 2018 without deficits On Eliquis (5) HTN (hypertension): BP stable Continue metoprolol (6) Hypothyroidism: Continue levothyroxine DVT Ppx: Eliquis Code status: FULL PCP: Lary Dispo: Tele. Will discharge home once medically stable. Subjective Pt was seen and examined Lying in bed with no distress with at bedside Pt said that she feels much better She said that her breathing is better Denies any chest pain, palpitation, dizziness and SOB Physical Exam Physical Exam: General- No acute distress Head- atraumatic Eyes- PERRL, EOMI, ENT- oropharynx clear Neck- supple, no JVD Lungs- clear to auscultation Heart- regular rhythm; no murmur Abdomen- normal bowel sounds, soft, nontender Extremities- no calf tenderness Neuro- alert, oriented x 3; PERRL, EOMI; no facial palsy; no dysarthria Skin- warm & dry Results & Data Vital Signs (Past 12 Hours) Vital Signs Temp Pulse Pulse Pulse Resp BP Pulse Ox 05/04/19 16:13 106 H 05/04/19 15:09 36.6 C 81 20 136/84 91 05/04/19 13:49 85 131/78 05/04/19 11:54 36.7 C 87 20 114/78 91 05/04/19 09:43 106 H 120/71 05/04/19 08:54 124 H 135/103 H 05/04/19 07:05 38.6 C H 106 H 16 131/78 93
[2019-05-04] MEDS: POTASSIUM CHLORIDE 20 MEQ TABCR PO SCH (20:14)
[2019-05-04] MEDS: ATORVASTATIN 40 MG TAB PO SCH (20:15)
[2019-05-04] MEDS: QUETIAPINE FUMARATE 25 MG TABLET PO SCH (20:15)
[2019-05-04] MEDS ORDERED: MAGNESIUM HYDROXIDE SUSP 30 ML UDC PO ONE (20:26)
[2019-05-05] MEDS: FUROSEMIDE 40 MG in SYRINGE 0 ML IV SCH (06:45)
[2019-05-05 07:50] LABS: Calcium 9.3 mg/dl (8.5-10.1); Creatinine Clr Calc Pharmacy 49.6 ml/min; Est GFR (African American) 67.5; Est GFR (Non-African American) 58.3; Potassium 3.7 mmol/L (3.5-5.1)
[2019-05-05] MEDS: CHOLECALCIFEROL 1,000 UNITS TAB PO SCH (07:56)
[2019-05-05] MEDS: PANTOprazole 40 MG TAB PO SCH (07:57)
[2019-05-05] MEDS: POTASSIUM CHLORIDE 20 MEQ TABCR PO SCH (07:57)
[2019-05-05] MEDS: AMIODARONE 200 MG TAB PO SCH ×2 (07:57→13:55)
[2019-05-05] MEDS: METOPROLOL TARTRATE 25 MG TAB PO SCH ×2 (07:57→13:55)
[2019-05-05] MEDS: APIXABAN 5 MG TABLET PO SCH (07:58)
[2019-05-05] MEDS: ARMOUR THYROID 30 MG TAB PO SCH (07:58)
--- NOTE | 2019-05-05 14:25 | Cardiology Progress Note ---
Date of Service May 05, 2019 Assessment & Plan (1) Atrial fibrillation with RVR: The patient can be discharged on 200 mg of amiodarone twice daily along with Eliquis. I will plan to follow-up in a few weeks she will return for an elective cardioversion. (2) Acute diastolic CHF (congestive heart failure): She will need to go home on a diuretic after discharge. (3) Hypokalemia: Supplement potassium orally (4) HLD (hyperlipidemia): Continue statin, atorvastatin (5) HTN (hypertension): Blood pressure acceptable, occasionally with mild hypotension, asymptomatic Follow Subjective The patient had an uneventful night. No new complaints today. Review of Systems Review of Systems: All systems reviewed & are unremarkable except as noted in HPI & below No additional Physical Exam Physical Exam: General: no acute distress and stated age Head: normocephalic, no masses, lesions, tenderness or abnormalities Eyes: conjunctiva are pink and non-injected, sclera clear Neck: supple, no adenopathy, no bruits, normal jugular venous pulse, no hepatojugular reflux Chest: normal shape and normal respiratory effort Lungs: clear to auscultation and percussion Cardiac Exam: - irregular rate & rhythm, no murmurs gallops or rubs - normal S1, normal S2 Pulses: 2(+) throughout Abdomen: abdomen soft, non-tender, no abnormal masses and no hepatosplenomegaly Musculoskeletal: no gait disturbance, no joint inflammation, no deforming arthritis Extremities: no edema and no cyanosis Neuro: grossly normal exam Results & Data Vital Signs (Past 12 Hours) Vital Signs Temp Pulse Pulse Resp BP Pulse Ox 05/05/19 13:54 80 112/61 05/05/19 11:38 36.4 C L 95 H 18 139/79 91 05/05/19 07:52 81 144/66 H 05/05/19 07:19 36.6 C 95 H 18 134/84 91 05/05/19 06:48 36.8 C 102 H 24 144/90 H 100 05/05/19 03:42 36.6 C 83 18 133/84 93
--- NOTE | 2019-05-05 15:10 | Hospitalist Progress Note ---
Date of Service May 05, 2019 Assessment & Plan (1) Atrial fibrillation with RVR: Present on admission with worsening SOB and HR 120 on admission 120s Received 10 mg IV Lopressor 15 mg IV diltiazem Rate control Cardiology on board On Amiodarone 400mg TID metoprolol increased to 25mg TID case discussed with cardiology recommended to discharge on amiodarone 200mg BID and metoprolol 25 mg TID Continue Eliquis 5 mg BID Follow up with cardiology next week for possible cardiovertion OK from cardiology standpoint to discharge home today (2) Acute diastolic CHF (congestive heart failure): Worsening SOB on presentation BNP elevated to 3845 CXR showed cardiomegaly with mild pulmonary vascular congestion. CT chest showed cardiomegaly with evidence of congestive failure. NO PE ECHO showed right ventricle systolic function is normal with EF 65-70% On IV lasix 40mg BID cardiology on board Will transition to oral lasix 40mg Clinically improves significantly Monitor BMP (3) Pleural effusion: saturated well on RA Will transition on oral lasix Clinically stable (4) History of stroke: H/o CVA in 2018 without deficits Continue Eliquis (5) HTN (hypertension): BP stable Continue metoprolol (6) Hypothyroidism: Continue levothyroxine DVT Ppx: Eliquis Code status: FULL PCP: Lary Dispo: Will discharge home today Follow up with cardiology next week Subjective Pt was seen and examined Lying in bed with no distress with at bedside Pt said that she feels much better She has been walking in the hallway with no distress Denies any chest pain, palpitation, dizziness and SOB Physical Exam Physical Exam: General- No acute distress Head- atraumatic Eyes- PERRL, EOMI, ENT- oropharynx clear Neck- supple, no JVD Lungs- clear to auscultation Heart- irregular rhythm; no murmur Abdomen- normal bowel sounds, soft, nontender Extremities- no calf tenderness Neuro- alert, oriented x 3; PERRL, EOMI; no facial palsy; no dysarthria Skin- warm & dry Results & Data Vital Signs (Past 12 Hours) Vital Signs Temp Pulse Pulse Resp BP Pulse Ox 05/05/19 13:54 80 112/61 05/05/19 11:38 36.4 C L 95 H 18 139/79 91 05/05/19 07:52 81 144/66 H 05/05/19 07:19 36.6 C 95 H 18 134/84 91 05/05/19 06:48 36.8 C 102 H 24 144/90 H 100 05/05/19 03:42 36.6 C 83 18 133/84 93
[2019-05-05] MEDS ORDERED: AMIODARONE 200 MG TAB PO SCH (21:00)
--- NOTE | 2019-05-06 09:01 | Discharge Summary ---
Date of Service May 05, 2019 Admission HPI Per Admitting Provider This is a 73-year-old female with a PMH of paroxysmal atrial fibrillation, hypothyroidism, hypertension, GERD, history of CVA in 2018 without deficits and other medical problems listed below who presents with progressive shortness of breath x 1 week. Started to feel fatigued and generally weak last week and has not been able to keep up with normal activities. Endorses some wheezing but denies fever, chills or cough. Endorses some weight gain but denies orthopnea or lower extremity swelling. Has some pleuritic chest pain with deep inspiration. Follows with Dr. Leyva for atrial fibrillation and bradycardia. Was evaluated by Dr. Cooney for possible pacemaker, but felt that A. fib is still well controlled on atenolol. Was seen in office today by HARSH Darden who found patient to be in A. fib with RVR in 130s and sent patient to ED for further evaluation. Upon arrival, patient in A. fib in 120s. Given 10 mg IV Lopressor 15 mg IV diltiazem with HR in 70s-80s during evaluation. Admission Exam Per Admitting Provider General Appearance: WD/WN, no apparent distress, resting comfortably Head: normocephalic, atraumatic Eyes: normal inspection, PERRL, EOMI ENT: hearing grossly normal, pharynx normal (moist mucous membranes) Neck: supple, no JVD, no adenopathy Respiratory/Chest: bibasilar crackles. No wheezes or rhonci. No respiratory distress or accessory muscle use Cardiovascular: irregular rate & rhythm, no murmur, normal peripheral pulses, 1+ BLE Abdomen/GI: normal bowel sounds, soft, non-tender to palpation Extremities/Musculoskelatal: normal inspection, no calf tenderness, normal capillary refill Neurologic/Psych: alert, normal mood/affect, oriented x 3 Skin: normal color, warm/dry Principal Diagnosis Atrial fibrillation with RVR Acute diastolic CHF (congestive heart failure) Hypokalemia Pleural effusion Hypertension Discharge Exam General- No acute distress Head- atraumatic Eyes- PERRL, EOMI, ENT- oropharynx clear Neck- supple, no JVD Lungs- clear to auscultation Heart- irregular rhythm; no murmur Abdomen- normal bowel sounds, soft, nontender Extremities- no calf tenderness Neuro- alert, oriented x 3; PERRL, EOMI; no facial palsy; no dysarthria Skin- warm & dry Discharge Data Allergies Allergy/AdvReac Type Severity Reaction Status Date / Time adhesive AdvReac Mild mahmood Unverified 05/02/19 14:07 Consultations 05/02/19 15:38 ED Decision to Admit Stat 05/03/19 10:43 Consult Cardiology Routine Ordered Studies 05/02/19 16:45 CT angio chest PE protocol Routine CT ANGIOGRAM OF THE CHEST CLINICAL HISTORY: Dyspnea. COMPARISON STUDY: Chest x-ray dated 05/02/2019. TECHNIQUE: Following the IV administration of 118 cc of Optiray 320, CT angiogram of the chest was performed from the upper abdomen to the thoracic inlet utilizing the pulmonary embolus protocol. Images are reviewed in the axial, sagittal, and coronal planes. 3-D MIPS images are created and assessed. IV contrast was administered without complication. A dose lowering technique was utilized adhering to the principles of ALARA. CT DOSE: 355.77 mGy.cm FINDINGS: Thyroid: Atrophic. Thoracic aorta: The thoracic aorta is normal in caliber and demonstrates standard 3-vessel arch anatomy. The thoracic aorta is not well opacified. Pulmonary vasculature: The pulmonary trunk is normal in caliber. There are no filling defects identified in main, lobar, or segmental pulmonary branches to suggest pulmonary embolus. Heart: The heart is enlarged and there is trace pericardial fluid. Lungs and pleural spaces: There are moderate pleural effusions with associated atelectasis. Diffuse intraocular septal thickening and diffuse peribronchial thickening indicate congestive failure. No airspace consolidation is seen typical for pneumonia. Mediastinum: Prominent mediastinal lymph nodes measure up to 10 mm in short axi s. Pia: Mildly enlarged hilar nodes measure up to 13 mm in short axis. Axillae: There is no axillary lymphadenopathy. Upper abdomen: There is a small hiatal hernia. Cholecystectomy clips are noted. Postoperative change is suggested at the esophageal hiatus. Skeletal structures: The skeletal structures are osteopenic. No lytic or blastic bony lesions are seen. IMPRESSION: 1. There is no evidence of pulmonary embolus in the main, lobar, or segmental pulmonary arteries. 2. Cardiomegaly with evidence of congestive failure. 3. There are moderate pleural effusions with associated atelectasis. 4. Mildly enlarged mediastinal and hilar lymph nodes are identified. 5. Additional findings as above. Electronically signed by: Reid Martin M.D. 05/02/2019 6:34 PM Dictated: 05/02/19 1806 Transcribed: 05/02/19 180 XR chest 1V portable HISTORY: 73 years-old Female Chest Pain acute atypical chest pain with shortness of breath COMPARISON: Chest radiograph 01/31/2019 TECHNIQUE: Portable AP view of the chest FINDINGS: Cardiac silhouette is enlarged. Mild pulmonary vascular congestion. Subsegmental bibasilar opacities are noted. There is mild blunting of the costophrenic angles. No pneumothorax or large pleural effusion. Mild degenerative changes of the shoulders and spine. IMPRESSION: 1. Cardiomegaly with mild pulmonary vascular congestion. 2. Bibasilar opacities suggest atelectasis or pneumonitis. 3. Possible trace pleural effusions. The above report was generated using voice recognition software. It may contain grammatical, syntax or spelling errors. Electronically signed by: Shakir Fernandez M.D. 05/02/2019 1:53 PM Dictated: 05/02/19 1352 Transcribed: 05/02/19 1352 Hospital Course (1) Atrial fibrillation with RVR: Present on admission with worsening SOB and HR 120 on admission 120s Received 10 mg IV Lopressor 15 mg IV diltiazem Rate control Cardiology on board On Amiodarone 400mg TID metoprolol increased to 25mg TID case discussed with cardiology recommended to discharge on amiodarone 200mg BID and metoprolol 25 mg TID Continue Eliquis 5 mg BID Follow up with cardiology next week for possible cardiovertion OK from cardiology standpoint to discharge home today (2) Acute diastolic CHF (congestive heart failure): Worsening SOB on presentation BNP elevated to 3845 CXR showed cardiomegaly with mild pulmonary vascular congestion. CT chest showed cardiomegaly with evidence of congestive failure. NO PE ECHO showed right ventricle systolic function is normal with EF 65-70% On IV lasix 40mg BID cardiology on board Will transition to oral lasix 40mg Clinically improves significantly Monitor BMP (3) Pleural effusion: saturated well on RA Will transition on oral lasix Clinically stable (4) History of stroke: H/o CVA in 2018 without deficits Continue Eliquis (5) HTN (hypertension): BP stable Continue metoprolol (6) Hypothyroidism: Continue levothyroxine DVT Ppx: Eliquis Code status: FULL PCP: [facility] Dispo: Will discharge home today Follow up with cardiology next week Total Time Total Time Spent Total Time Spent (In Minutes): 35 minutes Total Time Includes: Examination of the Patient, Discharge Planning, Medication Reconciliation, Communication With Other Providers and Other Discharge Plan Discharge Items Patient Disposition: Home - Self-Care Reason For Visit: AFIB WITH RVR,VOLUME OVERLOAD Discharge Diagnosis: Atrial fibrillation with RVR Acute diastolic CHF (congestive heart failure) Hypokalemia Pleural effusion Hypertension Discharge Goals: Decrease discomfort, Improve disease control, Increase independence and Improve nutritional status Activity: Resume your previous activity Non-emergency contact: Primary Care Provider and [employer] Call non-emergency contact if: you have any medication questions Follow-up/Referrals: Alonso Barth DO [Primary Care Provider] - Diet: Heart Healthy Addtl Provider Instructions: Follow up with primary care provider Dr. Alatorre on 05/09 @ 10:45 AM Follow up with cardiology (Cardiology office will contact you for the follow up appointment ) Check BMP in 1 week to monitor electrolytes and kidney function Fall precaution Prescriptions: New amiodarone 200 mg Tablet 200 mg PO BID 30 Days Qty: 60 RF: 0 metoprolol tartrate 25 mg Tablet 25 mg PO TID 30 Days Qty: 90 RF: 0 potassium chloride [Klor-Con M20] 20 mEq Tablet,Er Particles/Crystals 20 meq PO DAILY 30 Days Qty: 30 RF: 0 Continued cholecalciferol (vitamin D3) [Vitamin D3] 2,000 unit Tablet 2,000 unit PO DAILY RF: 0 omeprazole 20 mg Capsule,Delayed Release(Dr/Ec) 20 mg PO DAILY RF: 0 Ajovy 225 mg/1.5 mL Syringe 1.5 mg SUBCUT MONTHLY RF: 0 quetiapine [Seroquel] 25 mg Tablet 25 mg PO HS RF: 0 atorvastatin 40 mg Tablet 40 mg PO HS RF: 0 [id number]-mjoolrdfhz-jrv-cod [id number] mg Capsule 1 tab PO DAILY RF: 0 thyroid (pork) [[employer] Thyroid] 60 mg Tablet 60 mg PO Q OTHER DAY RF: 0 Eliquis 5 mg Tablet 5 mg PO AMPM RF: 0 Discontinued atenolol 50 mg Tablet 50 mg PO DAILY RF: 0 Stand-Alone Forms: [facility] Discharge Orders: Discharge Order (Routine); Ordered 05/05/19 Ordered By: Angela Scott Admission Data Admit Date/Time: 05/02/19 16:44 Attending Provider: Angela Scott Admit Provider: Jorje Pozo Primary Care Provider: Alonso Barth Other Providers: Jorje Pozo ; Brandon Khoury ; Manan Burgos ; Ismael Mcarthur ; Abdias Nicole ; Praveen Leyva ; Sb Valero ; Dianna Peña ; Lorena Cooney Service: Telemetry Medical Other Interventions: Discharge Summary Assessment (RN) Last Done: 05/05/19 16:19 DC Date/Time DO NOT enter until pt leaves facility: 05/05/19 17:11
== END 2019-05-05 17:11 | disposition home or self-care (01) | DRG 308 ==
LOC: ED 13:18 → 2N 16:44 → SUATTDRO 16:44 → 2N 17:08
DX: I50.31 Acute diastolic (congestive) heart failure; Z79.899 Other long term (current) drug therapy; Z79.01 Long term (current) use of anticoagulants; K21.9 Gastro-esophageal reflux disease without esophagitis; E87.6 Hypokalemia; I11.0 Hypertensive heart disease with heart failure; E78.5 Hyperlipidemia, unspecified; E03.9 Hypothyroidism, unspecified; I48.0 Paroxysmal atrial fibrillation; Z86.73 Personal history of transient ischemic attack (TIA), and cerebral infarction without residual deficits